=== PATIENT | female | born 1990 | race Caucasian/White ===

== ENCOUNTER 2016-07-02 11:51 | Outpatient (CLI) | payer OTHER ==
[~2016-07-02 11:51] MED LIST: ONDA4TAB46 PO; PRENTAB26 PO
--- NOTE | 2016-07-02 12:43 | History and Physical ---
History & Physical L&D H&P Patient is 26yo @ 20 0/7 presents by squad from PCP office, where she was seen after falling down 6 steps at home this morning. At 8:30a, she slipped on icy steps at home, fell on her low back. Pain is mostly in her low back, midline, at site of impact. Does not know if she hit her head or if she lost consciousness - she is having trouble remembering. 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 She was evaluated by the doctor at work, and per that office, lost consciousness during evaluation and therefore ambulance was called. Patient does not remember this. Per reports from EMS, the PCP office noted vaginal bleeding at some point, but examination of patient's clothing reveals no blood. She notes some low pelvic cramps, but no abdominal pain. She has not noted much movement yet during the so far. history is SVDx2, term. One of these pregnancies had ctx with betamethasone administration, but delivered at term. SAB x2. PMH: asthma, biliary dyskinesia, ADHD. H/o HTN (no meds) PSH: D&E, gallbladder, laparoscopy endometriosis, ovarian cystectomy Allergies: zoloft (mood swings) Meds: PNV Soc: denies E/T/D Fam: noncontributory ROS: neg except as above VSS Gen: AAOx3, is confused about the events of the fall Head: Small spot of blood on pillow, no obvious area of bleeding on back of head. Abd: soft, NTTP. gravid. No s/s abruption. Ext: no edema Spec exam: no vaginal bleeding, cervix visually closed. Blood type: O+ heart rate: 140's. Limited bedside ultrasound: breech position, fundal placenta. Adequate- appearing fluid. + movement. +cardiac activity. No obvious abnormalities. A/P 1. 26yo @ 20 0/7 2. Fall on low back - No s/s abruption: no vaginal bleeding, belly is soft and benign. Ultrasound is benign. + movement on US. FHR 140s. The most likely time for placental abruption to occur is in the 4 hours after trauma, and it has been 4 hours at this time. 3. Loss of consciousness, unknown if patient had head trauma Will transfer care back to emergency department for further workup and evaluation of fall and loss of consciousness. If patient needs imaging (i.e. head CT) this is OK in the setting of . I discussed this with patient and her mother and relayed this info to charge nurse in ER. If there are any questions, please call.
[2016-07-02] MEDS ORDERED: ACET-1311 PO (13:17)
[2016-07-02] MEDS ORDERED: OXYC1TAB3 PO (16:41)
== END 2016-07-02 12:25 | disposition other institution (70) ==
LOC: C.OPB 11:51 → C.LD 11:51 → C.OPB 12:25
PROVIDERS: ATTEND Obstetrics & Gynecology
DX: O99.89 Other specified diseases and conditions complicating pregnancy, childbirth and the puerperium (principal); R55 Syncope and collapse; W00.1XXA Fall from stairs and steps due to ice and snow, initial encounter; Z3A.20 20 weeks gestation of pregnancy; J45.909 Unspecified asthma, uncomplicated; F90.9 Attention-deficit hyperactivity disorder, unspecified type

== ENCOUNTER 2016-07-02 12:37 | Emergency (ER) | payer OTHER ==
[~2016-07-02] VITALS: Ht 162.6 cm; Wt 82.0 kg
[2016-07-02 12:38] VITALS: TEMP 36.8; Ht 162.6 cm; Wt 82.0 kg
[2016-07-02] MEDS ORDERED: ACET-1311 PO (13:17)
[2016-07-02] MEDS ORDERED: HYDROCODONE/ACETAMOPHEN 5/325MG TAB PO STA (13:17)
--- NOTE | 2016-07-02 13:53 | DIAGNOSTIC IMAGING REPORT ---
CT SCAN OF THE BRAIN WITHOUT IV CONTRAST CLINICAL HISTORY: Syncope. COMPARISON STUDY: CT of the brain dated 05/19/2015. TECHNIQUE: Unenhanced axial CT scan of the brain is performed from the vertex to the skull base. Automated dose control exposure was utilized. CT DOSE: 537.48 mGy.cm FINDINGS: Brain parenchyma: The brain parenchyma is normal in appearance. There is no hemorrhage, mass effect, or evidence of acute territorial ischemia by CT criteria. Zapata-white matter is preserved. No extra-axial fluid collection is seen. Ventricles, sulci, cisterns: Normal in configuration. Intracranial vasculature: The visualized intracranial vasculature at the skull base is normal in appearance. Calvarium: There is no depressed calvarial fracture. Sinuses and mastoids: The visualized paranasal sinuses are clear. The mastoid air cells are well pneumatized. Orbits: The bony orbits are grossly intact. IMPRESSION: No acute intracranial abnormality. Electronically signed by: Brian Meyer M.D. 07/02/2016 1:51 PM Dictated Date/Time: 07/02/2016 1:50 PM
[2016-07-02] MEDS ORDERED: ONDANSETRON INJ 2 MG/ML 2 ML VIAL IV STA (14:03)
[2016-07-02 14:26] LABS: BASO % 0.2 %; BASO ABS # 0.02 K/uL (0-0.2); COMPLETE YES; EOS % 0.7 %; HEMATOCRIT 32.9 % (37-47); IG% 2.3 %; LYMPH % 17.6 %; LYMPH ABS # 2.02 K/uL (1.2-3.4); MEAN CELL VOLUME 87.3 fL (80-100); MEAN CORPUSCULAR HEMOGLOBIN 30.5 pg (25-34); MEAN PLATELET VOLUME 10.9 fL (7.4-10.4); MONO % 8.9 %; NEUT % 70.3 %; PLATELET COUNT 227 K/uL (130-400); RED BLOOD COUNT 3.77 M/uL (4.2-5.4)
[2016-07-02 14:47] LABS: BLOOD UREA NITROGEN 7 mg/dl (7-18); CALCIUM 8.8 mg/dl (8.5-10.1); CARBON DIOXIDE 24 mmol/L (21-32); CHLORIDE 104 mmol/L (98-107); CREATININE 0.52 mg/dl (0.60-1.20); GLUCOSE 80 mg/dl (70-99); POTASSIUM 3.7 mmol/L (3.5-5.1); SODIUM 138 mmol/L (136-145)
[2016-07-02] MEDS ORDERED: MoRPHine SULFATE 10 MG/ML CARP/VIAL IV STA (15:07)
--- NOTE | 2016-07-02 16:21 | DIAGNOSTIC IMAGING REPORT ---
LUMBAR SPINE MRI HISTORY: fall/ severe low back pain/ TECHNIQUE: Multiplanar multisequence MRI of the lumbar spine was performed without the use of contrast. COMPARISON: None. FINDINGS: For the purpose of the report the L5-S1 disc space will be located on axial image 27 of 30. Alignment and curvature are intact. No fracture or subluxation. L5 is measured to be a transitional vertebra with partial sacralization and pseudarthrosis on the left. There is a slightly hypoplastic L5-S1 disc space. A T1 and T2 hyperintense lesion at L1 partially suppresses. This may represent an atypical hemangioma. The conus terminates at L1. No disc herniations. No significant central canal or neural foraminal narrowing. Paraspinal soft tissues are unremarkable. Partial visualization of the intrauterine gestation. IMPRESSION: 1. No fracture or subluxation within the lumbar spine. 2. No disc herniations. No significant central canal or neural foraminal narrowing. 3. Intrauterine gestation is partially visualized. Electronically signed by: Nicolas Nair M.D. 07/02/2016 4:19 PM Dictated Date/Time: 07/02/2016 4:04 PM
[2016-07-02] MEDS ORDERED: MoRPHine SULFATE 4 MG/ML 1 ML CARP\\VIAL IV STA (16:29)
[2016-07-02] MEDS ORDERED: ACETAMINOPHEN 325 MG TAB PO STA (16:34)
[2016-07-02] MEDS ORDERED: OXYC1TAB3 PO (16:41)
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
--- NOTE | 2016-07-02 19:05 | DIAGNOSTIC IMAGING REPORT ---
LIMITED (US) CLINICAL HISTORY: Fall. Hypotension. Back pain. Abdominal pain. COMPARISON STUDY: ultrasound June 18, 2016. TECHNIQUE: Abdominal sonography of the fetus was performed. FINDINGS: A single viable intrauterine gestation is noted. heart rate is normal at 134 bpm. Please note that a dedicated anatomical survey was not performed. Femur length measured 3.3 cm which corresponds to an estimated gestational age of 20 weeks and 3 days. Presentation was transverse. Cervix was closed, measuring approximately 4 cm in length. Several placental lakes were noted. There is a prominent mixed echogenicity region within the placenta near the cord insertion. IMPRESSION: 1. Single viable intrauterine gestation with normal heart rate of 134 bpm. 2. Prominent mixed echogenicity focus within the placenta near the cord insertion. This likely reflects normal placenta or placental lakes. This is likely within normal limits although if persistent pain, short-term follow-up ultrasound is recommended. 3. Closed cervix, measuring approximate 4 cm in length. The cervix is suboptimally assessed on this exam. Electronically signed by: Chase Teresa M.D. 07/02/2016 7:04 PM Dictated Date/Time: 07/02/2016 6:55 PM
[2016-07-02 19:41] VITALS: BP 104/62; PULSE 84; O2SAT 100
--- NOTE | 2016-07-02 21:36 | EMERGENCY ROOM VISIT NOTE ---
ED Visit Note Ms. Nicole lancaster was transferred to ct from Sheyla Rabago PA-C at the end of her shift pending hydration. In summary patient was brought to the hospital today after she slipped and fell down stairs. During the fall she injured her back. She is currently 20 weeks . She was initially seen at her PCPs office and then was transferred to the hospital by ambulance because of her pain and there was reported vaginal bleeding. She was seen at the [facility] initially by Dr. Mcdowell. A vaginal examination and a ultrasound was performed and her and was cleared for further evaluation and care of her other complaints. While in the emergency department she had multiple labs, and head CT and a back MRI. All these tests were negative. She was hydrated with medication and received IV narcotics for pain control. Just prior to discharge patient was noted to have a systolic blood pressure in the 90s and it was felt that she should be hydrated with additional fluids. She did have a return of normal blood pressure after approximately 500 mL of normal saline but when her blood pressure was rechecked again just prior to discharge her systolic blood pressure was 85. A second bolus of 500 mL were given to the patient. On my initial evaluation of the patient she was complaining of lightheadedness and dizziness with movement and position changes. After her second 500 mL bolus her blood pressure returned to normal but she was still feeling lightheaded. Her abdomen was soft and nontender. I did contact Dr. Mcdowell and she recommended a ultrasound to check the baby's heart rate and make sure there was no signs of placental abruption. Dr. Mcdowell felt if her ultrasound was normal that she could be discharged home with office follow-up. Additionally she felt if there was anything abnormal if I am any additional questions I could recontact her. Ultrasound: Was reviewed by myself and read by the radiologist showing a single viable intrauterine with a heart rate of 134 bpm, prominent mixed echogenic focus within the placenta near the insertion of the cord likely reflecting a normal placenta and placental lakes and a closed cervix. Orthostatic vital signs were performed and patient was not orthostatic. Patient was reassessed multiple times during her stay in the emergency department. Patient was discharged home in stable condition accompanied by her . She reported much less dizziness on discharge and no worsening pain from her injuries. Patient was encouraged to continue the discharge plan put in place by Ms. Rabago ; I did note in this discharge plan she was prescribed OxyIR for pain and I encouraged her to avoid this based on her lightheadedness and if possible just use acetaminophen every 6 hours and ice on areas of pain.
== END 2016-07-02 20:08 | disposition home or self-care (01) ==
LOC: EDBD 12:37 → C.EDC 12:39
DX: O26.90 Pregnancy related conditions, unspecified, unspecified trimester (principal); S39.012A Strain of muscle, fascia and tendon of lower back, initial encounter; W10.8XXA Fall (on) (from) other stairs and steps, initial encounter; Y92.89 Other specified places as the place of occurrence of the external cause; Y99.0 Civilian activity done for income or pay; R55 Syncope and collapse; R11.0 Nausea; J45.909 Unspecified asthma, uncomplicated; F90.9 Attention-deficit hyperactivity disorder, unspecified type; E28.2 Polycystic ovarian syndrome; N80.9 Endometriosis, unspecified; Z87.820 Personal history of traumatic brain injury; Z91.81 History of falling; Z90.49 Acquired absence of other specified parts of digestive tract; Z88.8 Allergy status to other drugs, medicaments and biological substances

== ENCOUNTER 2016-08-15 17:41 | Emergency (ER) | payer OTHER ==
[~2016-08-15] VITALS: Ht 162.6 cm; Wt 89.3 kg
[~2016-08-15 17:41] MED LIST changes: +ACET-1311 PO
[2016-08-15 17:44] VITALS: TEMP 37.3; Ht 162.6 cm; Wt 89.3 kg
[2016-08-15] MEDS ORDERED: ONDANSETRON INJ 2 MG/ML 2 ML VIAL IV STA (17:50)
[2016-08-15] MEDS ORDERED: MoRPHine SULFATE 4 MG/ML 1 ML CARP\\VIAL IV STA (17:50)
[2016-08-15] MEDS ORDERED: SODIUM CHLORIDE 0.9% 1000ML 1,000 ML IV STA (17:50)
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
[2016-08-15 18:12] LABS: BASO % 0.2 %; BASO ABS # 0.02 K/uL (0-0.2); COMPLETE YES; EOS % 0.6 %; HEMATOCRIT 31.8 % (37-47); IG% 1.9 %; LYMPH % 18.4 %; MEAN CELL VOLUME 88.8 fL (80-100); MEAN CORPUSCULAR HGB CONC 34.9 g/dl (32-36); MONO % 6.3 %; NEUT % 72.6 %; PLATELET COUNT 211 K/uL (130-400); RED BLOOD COUNT 3.58 M/uL (4.2-5.4); WHITE BLOOD COUNT 11.95 K/uL (4.8-10.8)
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
[2016-08-15 18:24] LABS: ALT/SGPT 17 U/L (12-78); AST/SGOT 10 U/L (15-37); BLOOD UREA NITROGEN 8 mg/dl (7-18); BUN/CREATININE RATIO 11.6 (10-20); CALCIUM 8.9 mg/dl (8.5-10.1); CARBON DIOXIDE 24 mmol/L (21-32); CHLORIDE 106 mmol/L (98-107); GLUCOSE 105 mg/dl (70-99); POTASSIUM 3.4 mmol/L (3.5-5.1); SODIUM 139 mmol/L (136-145)
[2016-08-15 18:27] LABS: ALKALINE PHOSPHATASE 91 U/L (45-117)
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
[2016-08-15 20:06] LABS: URINE APPEARANCE CLOUDY (CLEAR); URINE BILIRUBIN NEG (NEG); URINE COLOR YELLOW; URINE EPITHELIAL CELL AUTO >30 /lpf (0-5); URINE NITRITE NEG (NEG); URINE SPECIFIC GRAVITY 1.013 (1.000-1.030); UROBILINOGEN NEG (NEG); ZZUR CULT IF INDIC CLEAN CATCH NO
[2016-08-15 20:13] LABS: MANUAL MICROSCOPIC REQUIRED? NO; REVIEW REQ? NO
[2016-08-15 20:16] LABS: BENZODIAZEPINE, URINE NEG (NEG); COCAINE,URINE NEG (NEG); PHENCYCLIDINE, URINE NEG (NEG)
[2016-08-15 20:30] VITALS: BP 105/70; PULSE 87; O2SAT 100
[2016-08-19 18:29] LABS: COD UR NEGATIVE NG/ML (CUTOFF=50); HYDROCOD UR NEGATIVE NG/ML (CUTOFF=50); HYDROMOR UR NEGATIVE NG/ML (CUTOFF=50); MORPHINE UR 4450 NG/ML (CUTOFF=50); NORHYDROCODONE CONF UR NEGATIVE NG/ML (CUTOFF=50); OXYMORPH UR NEGATIVE NG/ML (CUTOFF=50)
== END 2016-08-15 20:33 | disposition home or self-care (01) ==
LOC: EDBD 17:41 → C.ED 17:42
DX: O9A.213 Injury, poisoning and certain other consequences of external causes complicating pregnancy, third trimester (principal); Z3A.30 30 weeks gestation of pregnancy; R10.32 Left lower quadrant pain; O99.513 Diseases of the respiratory system complicating pregnancy, third trimester; J45.909 Unspecified asthma, uncomplicated; V43.52XA Car driver injured in collision with other type car in traffic accident, initial encounter; Y99.8 Other external cause status

== ENCOUNTER 2016-08-15 20:40 | Outpatient (CLI) | payer OTHER ==
[~2016-08-15] VITALS: Ht 162.6 cm; Wt 85.0 kg
[2016-08-15 23:01] VITALS: Ht 162.6 cm; Wt 85.0 kg
== END 2016-08-15 22:03 | disposition home or self-care (01) ==
LOC: C.OPB 20:40 → C.LD 20:40 → C.OPB 22:03
PROVIDERS: ATTEND Obstetrics & Gynecology
DX: Z34.82 Encounter for supervision of other normal pregnancy, second trimester (principal); Z3A.26 26 weeks gestation of pregnancy; V43.52XA Car driver injured in collision with other type car in traffic accident, initial encounter

== ENCOUNTER → 2016-08-26 | Outpatient (CLI) | payer OTHER ==
[~2016-08-26] MED LIST changes: -ACET-1311 PO; -ONDA4TAB46 PO
[2016-08-26 10:51] LABS: HEMATOCRIT 34.2 % (37-47)
[2016-08-26 11:59] LABS: URINE APPEARANCE TURBID (CLEAR); URINE BILIRUBIN NEG (NEG); URINE COLOR DK YELLOW; URINE EPITHELIAL CELL AUTO >30 /lpf (0-5); URINE NITRITE NEG (NEG); URINE SPECIFIC GRAVITY 1.024 (1.000-1.030); UROBILINOGEN NEG (NEG)
[2016-08-26 12:07] LABS: MANUAL MICROSCOPIC REQUIRED? NO; REVIEW REQ? YES
[2016-08-26 12:21] LABS: GTGD 50 Grams
== END | disposition home or self-care (01) ==
LOC: C.LAB1850 09:20
PROVIDERS: ATTEND Obstetrics & Gynecology
DX: Z34.83 Encounter for supervision of other normal pregnancy, third trimester (principal)

== ENCOUNTER 2016-09-02 11:06 | Observation (INO) | payer OTHER ==
[~2016-09-02] VITALS: Ht 162.6 cm; Wt 90.0 kg
[2016-09-02] MEDS ORDERED: LACTATED RINGER'S 1000ML 500 ML IV ONE (11:45)
[2016-09-02] MEDS ORDERED: BETAMETH SOD PHOS/ACETATE IA 6 MG/ML IM ONE (12:15)
[2016-09-02 12:17] LABS: BASO % 0.2 %; BASO ABS # 0.02 K/uL (0-0.2); COMPLETE YES; EOS % 0.6 %; HEMATOCRIT 30.8 % (37-47); IG% 2.4 %; LYMPH ABS # 1.78 K/uL (1.2-3.4); MEAN CELL VOLUME 86.3 fL (80-100); MEAN CORPUSCULAR HEMOGLOBIN 29.7 pg (25-34); MEAN CORPUSCULAR HGB CONC 34.4 g/dl (32-36); MEAN PLATELET VOLUME 10.5 fL (7.4-10.4); MONO % 8.7 %; NEUT % 74.1 %; PLATELET COUNT 188 K/uL (130-400); RED BLOOD COUNT 3.57 M/uL (4.2-5.4); WHITE BLOOD COUNT 12.71 K/uL (4.8-10.8)
[2016-09-02] MEDS: LACTATED RINGER'S 1000ML 1,000 ML IV SCH ×2 (13:08→16:39)
--- NOTE | 2016-09-02 15:12 | DIAGNOSTIC IMAGING REPORT ---
ULTRASOUND LIMITED:\E\ CLINICAL HISTORY: Vaginal bleeding. Reportedly 28 weeks . COMPARISON STUDY: Limited ultrasound dated 07/02/2016. FINDINGS: Real-time, grayscale, and color Doppler sonography of the fetus and gravid uterus is performed. There is a single live intrauterine gestation with an estimated heart rate of 153 bpm. Presentation is breech. The femoral length measures 5.26 cm, corresponding to an estimated age of 28 weeks 0 days. The cervix measures 4.6 cm in length and is closed. The placenta is fundal. The amount of fluid index measures 16.8 cm. IMPRESSION: 1. There is a single live intrauterine gestation with an estimated age of 28 weeks 0 days by femoral length measurement. 2. No acute abnormality is seen. 3. Note that this does not constitute a dedicated anatomic scan. Dictated: 09/02/2016 3:04 PM Transcribed: 09/02/2016 3:11 PM Sai Electronically signed by: Brian Meyer M.D. 09/02/2016 3:16 PM Dictated Date/Time: 09/02/2016 3:04 PM
[2016-09-02 16:01] VITALS: Ht 162.6 cm; Wt 90.0 kg
[2016-09-02] MEDS ORDERED: IV FLUIDS COMPLETED PRN (19:15)
[2016-09-03] MEDS: LACTATED RINGER'S 1000ML 1,000 ML IV SCH (00:32)
[2016-09-03] MEDS ORDERED: ACETAMINOPHEN 325 MG TAB PO ONE (09:26)
[2016-09-03 09:53] LABS: PARTIAL THROMBOPLASTIN RATIO 0.9; PROTHROMBIN TIME (PATIENT) 10.3 SECONDS (9.0-12.0)
[2016-09-03 11:35] LABS: MEAN CORPUSCULAR HEMOGLOBIN 30.1 pg (25-34); MEAN CORPUSCULAR HGB CONC 34.7 g/dl (32-36); MEAN PLATELET VOLUME 11.1 fL (7.4-10.4); PLATELET COUNT 205 K/uL (130-400); RED BLOOD COUNT 3.45 M/uL (4.2-5.4); WHITE BLOOD COUNT 15.92 K/uL (4.8-10.8)
[2016-09-03] MEDS ORDERED: BETAMETH SOD PHOS/ACETATE IA 6 MG/ML IM SCH (12:45)
[2016-09-03] MEDS ORDERED: ACETAMINOPHEN 325 MG TAB PO PRN (15:00)
[2016-09-03 16:50] LABS: HEMATOCRIT 29.3 % (37-47); MEAN CELL VOLUME 88.8 fL (80-100); MEAN CORPUSCULAR HGB CONC 33.8 g/dl (32-36); MEAN PLATELET VOLUME 10.6 fL (7.4-10.4); PLATELET COUNT 179 K/uL (130-400); WHITE BLOOD COUNT 13.41 K/uL (4.8-10.8)
[2016-09-03 17:08] LABS: URINE APPEARANCE CLOUDY (CLEAR); URINE BILIRUBIN NEG (NEG); URINE COLOR YELLOW; URINE EPITHELIAL CELL AUTO >30 /lpf (0-5); URINE NITRITE NEG (NEG); URINE SPECIFIC GRAVITY 1.005 (1.000-1.030); UROBILINOGEN NEG (NEG)
[2016-09-03 17:10] LABS: MANUAL MICROSCOPIC REQUIRED? NO; REVIEW REQ? YES
[2016-09-03 17:20] LABS: PARTIAL THROMBOPLASTIN RATIO 0.9; PROTHROMBIN TIME (PATIENT) 10.3 SECONDS (9.0-12.0)
[2016-09-03] MEDS: D5NSS + 20MEQ KCL 1,000 ML IV SCH (22:04)
[2016-09-04] MEDS: D5NSS + 20MEQ KCL 1,000 ML IV SCH (05:45)
[2016-09-04 06:42] LABS: HEMATOCRIT 27.9 % (37-47); MEAN CELL VOLUME 87.2 fL (80-100); MEAN CORPUSCULAR HEMOGLOBIN 29.1 pg (25-34); MEAN CORPUSCULAR HGB CONC 33.3 g/dl (32-36); MEAN PLATELET VOLUME 10.2 fL (7.4-10.4); PLATELET COUNT 185 K/uL (130-400); WHITE BLOOD COUNT 13.79 K/uL (4.8-10.8)
[2016-09-04 07:30] LABS: PARTIAL THROMBOPLASTIN RATIO 0.9; PROTHROMBIN TIME (PATIENT) 10.5 SECONDS (9.0-12.0)
[2016-09-04] MEDS ORDERED: NURSING VERBAL MED ORDER ONE ×2 (09:40→10:00)
[2016-09-04] MEDS ORDERED: ONDANSETRON INJ 2 MG/ML 2 ML VIAL IV STA (09:53)
[2016-09-04] MEDS ORDERED: ONDANSETRON INJ 2 MG/ML 2 ML VIAL ONE (10:04)
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
== END 2016-09-04 10:20 | disposition short-term general hospital (02) ==
LOC: C.OBG 11:06 → C.OPB 11:06 → C.OBG 18:16 → C.OPB 18:16 → C.LD 09-03 09:45
PROVIDERS: ADMIT Obstetrics & Gynecology; ATTEND Obstetrics & Gynecology
DX: O46.93 Antepartum hemorrhage, unspecified, third trimester (principal); O26.893 Other specified pregnancy related conditions, third trimester; M54.5 Low back pain; W00.1XXA Fall from stairs and steps due to ice and snow, initial encounter; O34.43 Maternal care for other abnormalities of cervix, third trimester; O99.283 Endocrine, nutritional and metabolic diseases complicating pregnancy, third trimester; E28.2 Polycystic ovarian syndrome; Z3A.28 28 weeks gestation of pregnancy

== ENCOUNTER → 2016-10-21 | Outpatient (CLI) | payer OTHER ==
[~2016-10-21] MED LIST changes: +AMPH20TA2 PO; +BCPILLS PO
[2016-10-21 12:13] LABS: HEMATOCRIT 35.5 % (37-47); MEAN CELL VOLUME 87.2 fL (80-100); MEAN CORPUSCULAR HEMOGLOBIN 28.7 pg (25-34); MEAN PLATELET VOLUME 10.8 fL (7.4-10.4); PLATELET COUNT 287 K/uL (130-400); RED BLOOD COUNT 4.07 M/uL (4.2-5.4)
== END | disposition home or self-care (01) ==
LOC: C.LAB1850 10:32
PROVIDERS: ATTEND Nurse Practitioner
DX: Z01.812 Encounter for preprocedural laboratory examination (principal); N80.9 Endometriosis, unspecified; N92.0 Excessive and frequent menstruation with regular cycle; N94.6 Dysmenorrhea, unspecified

== ENCOUNTER → 2016-12-22 | Outpatient (CLI) | payer OTHER ==
[~2016-12-22] MED LIST changes: -AMPH20TA2 PO; -BCPILLS PO
[2016-12-22 11:57] LABS: BASO % 0.6 %; BASO ABS # 0.03 K/uL (0-0.2); EOS % 1.1 %; HEMATOCRIT 33.6 % (37-47); IG% 0.4 %; LYMPH % 39.3 %; LYMPH ABS # 2.06 K/uL (1.2-3.4); MEAN CELL VOLUME 85.9 fL (80-100); MEAN CORPUSCULAR HEMOGLOBIN 28.4 pg (25-34); MEAN PLATELET VOLUME 10.2 fL (7.4-10.4); MONO % 9.9 %; NEUT % 48.7 %; PLATELET COUNT 264 K/uL (130-400); RED BLOOD COUNT 3.91 M/uL (4.2-5.4); WHITE BLOOD COUNT 5.24 K/uL (4.8-10.8)
[2016-12-22 12:00] LABS: COMPLETE YES
== END | disposition home or self-care (01) ==
LOC: C.LAB 11:37
PROVIDERS: ATTEND Nurse Practitioner Family
DX: N92.0 Excessive and frequent menstruation with regular cycle (principal)

== ENCOUNTER → 2017-05-10 | Outpatient (CLI) | payer OTHER ==
[~2017-05-10] MED LIST changes: +AMPH20TA2 PO; +BCPILLS PO
[2017-05-10 19:44] LABS: BASO % 0.3 %; BASO ABS # 0.03 K/uL (0-0.2); EOS % 0.9 %; EOS ABS # 0.09 K/uL (0-0.5); HEMATOCRIT 34.7 % (37-47); HEMOGLOBIN 11.6 g/dL (12.0-16.0); IG# 0.04 K/uL (0.00-0.02); LYMPH ABS # 2.71 K/uL (1.2-3.4); MEAN CORPUSCULAR HEMOGLOBIN 27.8 pg (25-34); MEAN CORPUSCULAR HGB CONC 33.4 g/dl (32-36); MEAN PLATELET VOLUME 10.9 fL (7.4-10.4); MONO % 8.9 %; MONO ABS # 0.89 K/uL (0.11-0.59); NEUT % 62.5 %; NEUT ABS # 6.28 K/uL (1.4-6.5); PLATELET COUNT 301 K/uL (130-400); RED CELL DISTRIBUTION WIDTH CV 13.9 % (11.5-14.5); RED CELL DISTRIBUTION WIDTH SD 42.1 fL (36.4-46.3); WHITE BLOOD COUNT 10.04 K/uL (4.8-10.8)
== END | disposition home or self-care (01) ==
LOC: C.LAB 19:34
PROVIDERS: ATTEND Family Medicine
DX: N93.9 Abnormal uterine and vaginal bleeding, unspecified (principal)

== ENCOUNTER 2017-05-19 18:44 | Observation (INO) | payer OTHER ==
[~2017-05-19] VITALS: Ht 162.6 cm; Wt 84.1 kg
[~2017-05-19 18:44] MED LIST changes: -AMPH20TA2 PO; -BCPILLS PO
[2017-05-19] MEDS ORDERED: LIDOCAINE 4% W/AFRIN NASAL SOLN 4ML EXT STA (20:07)
[2017-05-19] MEDS ORDERED: AMPH20TA2 PO (20:12)
[2017-05-19] MEDS ORDERED: BCPILLS PO (20:12)
[2017-05-19] MEDS ORDERED: POLYETHYLENE (MIRALAX) 17 GM PACK PO PRN (20:15)
[2017-05-19] MEDS ORDERED: OXYMETAZOLINE HCL 0.05% NA SPR 15 ML BTL PRN (20:15)
[2017-05-19] MEDS ORDERED: MAGNESIUM HYDROXIDE SUSP 30 ML UDC PO PRN (20:15)
[2017-05-19] MEDS ORDERED: ALUMINUM/MAGNESIUM/SIMETH (MAALOX MAX) 30 ML UDC PO PRN (20:15)
[2017-05-19] MEDS ORDERED: IV FLUIDS COMPLETED PRN (20:30)
[2017-05-19] MEDS ORDERED: FENTANYL CITRATE INJ 50 MCG/1 ML 2 ML VIAL IV STA (20:42)
[2017-05-19 21:12] LABS: BASO % 0.3 %; BASO ABS # 0.04 K/uL (0-0.2); COMPLETE YES; EOS % 0.6 %; HEMATOCRIT 28.5 % (37-47); IG% 0.3 %; LYMPH % 33.4 %; LYMPH ABS # 3.87 K/uL (1.2-3.4); MEAN CELL VOLUME 82.8 fL (80-100); MEAN CORPUSCULAR HGB CONC 32.6 g/dl (32-36); MEAN PLATELET VOLUME 10.5 fL (7.4-10.4); MONO % 7.4 %; PLATELET COUNT 355 K/uL (130-400); RED BLOOD COUNT 3.44 M/uL (4.2-5.4)
[2017-05-19] MEDS ORDERED: OPTIRAY 320 IV PRN (21:30)
[2017-05-19 21:31] LABS: ALT/SGPT 20 U/L (12-78); BLOOD UREA NITROGEN 14 mg/dl (7-18); BUN/CREATININE RATIO 17.4 (10-20); CALCIUM 9.2 mg/dl (8.5-10.1); CARBON DIOXIDE 25 mmol/L (21-32); CHLORIDE 103 mmol/L (98-107); CREATININE 0.82 mg/dl (0.60-1.20); GLUCOSE 102 mg/dl (70-99); POTASSIUM 3.2 mmol/L (3.5-5.1); SODIUM 137 mmol/L (136-145)
[2017-05-19 21:34] LABS: ALKALINE PHOSPHATASE 64 U/L (45-117); AST/SGOT 13 U/L (15-37)
[2017-05-19 22:05] VITALS: BP 106/72; PULSE 89; TEMP 36.6; Ht 162.6 cm; Wt 84.1 kg
--- NOTE | 2017-05-19 22:30 | DIAGNOSTIC IMAGING REPORT ---
SINUSES-MAXILLOFACIAL WITH CLINICAL HISTORY: 26 years-old Female presenting with recurrent severe nose bleeds x 9 days. TECHNIQUE: Multidetector CT of the sinuses was performed without the use of intravenous contrast. IV contrast: None. A dose lowering technique was used consistent with the principles of ALARA (as low as reasonably achievable). COMPARISON: CT face from 06/17/2010. CT DOSE (mGy.cm): The estimated cumulative dose is 550.74 mGy.cm. FINDINGS: Dough Cutter topogram: Unremarkable. Soft tissues of the face are normal in appearance. Paranasal sinuses and mastoid air cells clear. No abnormal sclerosis of the maxillary sinus jeffrey to suggest chronic sinusitis. Minimal rightward deviation of the bony nasal septum. Ostiomeatal units patent bilaterally. Nasofrontal ethmoidal recesses patent bilaterally. No dehiscence of the optic canals. No variant anatomy evident. IMPRESSION: No evidence of acute or chronic sinusitis at this time. No variant anatomy evident. Electronically signed by: Mj Prince M.D. 05/19/2017 10:28 PM Dictated Date/Time: 05/19/2017 10:24 PM
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
[2017-05-19 22:36] VITALS: BP 106/72; PULSE 89; TEMP 36.6; O2SAT 98
[2017-05-19 22:56] LABS: INR 1.1 (0.9-1.1); PROTHROMBIN TIME (PATIENT) 11.3 SECONDS (9.0-12.0)
[2017-05-19 23:51] VITALS: BP 94/61; PULSE 79; TEMP 36.5; O2SAT 99
[2017-05-20] VITALS (9 sets, daily range): BP systolic 93–116; BP diastolic 59–80; PULSE 82–100; TEMP 36.3–36.7; O2SAT 99–100
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
[2017-05-20 05:35] LABS: URINE APPEARANCE CLEAR (CLEAR); URINE BILIRUBIN NEG (NEG); URINE COLOR YELLOW; URINE EPITHELIAL CELL AUTO >30 /lpf (0-5); URINE NITRITE POS (NEG); UROBILINOGEN NEG (NEG)
[2017-05-20 05:49] LABS: MANUAL MICROSCOPIC REQUIRED? NO; REVIEW REQ? YES; URINE SPECIFIC GRAVITY > 1.030 (1.000-1.030)
[2017-05-20] MEDS: AMPHETAMINE ASP/SULF/DEXTRAMPH 20 MG TAB PO SCH ×2 (06:29→18:00)
[2017-05-20] MEDS ORDERED: POTASSIUM CHLORIDE 20 MEQ TABCR PO ONE (07:00)
[2017-05-20 07:28] LABS: HEMATOCRIT 25.8 % (37-47); MEAN CELL VOLUME 83.8 fL (80-100); MEAN CORPUSCULAR HEMOGLOBIN 27.3 pg (25-34); MEAN CORPUSCULAR HGB CONC 32.6 g/dl (32-36); MEAN PLATELET VOLUME 9.9 fL (7.4-10.4); PLATELET COUNT 277 K/uL (130-400); RED BLOOD COUNT 3.08 M/uL (4.2-5.4); WHITE BLOOD COUNT 7.15 K/uL (4.8-10.8)
[2017-05-20 07:56] LABS: BUN/CREATININE RATIO 14.9 (10-20); CALCIUM 8.5 mg/dl (8.5-10.1); CREATININE 0.8 mg/dl (0.60-1.20); POTASSIUM 3.4 mmol/L (3.5-5.1)
[2017-05-20] MEDS ORDERED: NURSING VERBAL MED ORDER ONE (11:00)
[2017-05-20] MEDS ORDERED: SODIUM CHLORIDE 0.9% 1000ML 1,000 ML IV ONE (11:00)
[2017-05-20] MEDS: ACETAMINOPHEN 325 MG TAB PO PRN ×2 (11:08→23:31)
[2017-05-20] MEDS ORDERED: KETOROLAC TROMETHAMINE 15 MG/ML VIAL IV PRN (13:30)
[2017-05-20 14:01] LABS: HEMATOCRIT 24.7 % (37-47)
--- NOTE | 2017-05-20 14:06 | CONSULTATION REPORT ---
DATE OF CONSULTATION: 05/20/2017 DIAGNOSIS: Epistaxis. HISTORY OF PRESENT ILLNESS: A 26-year-old female who presented to the Emergency Room with a 2-week history of recurrent epistaxis, gradually becoming worse over the last 9 days, now she is lightheaded and has dyspnea on ambulation. She had an H&H checked at 10:00 a.m. yesterday, which was 11.1 and then at 4:30 p.m. it was down to 9.1 grams and this morning it is down to 8.4 grams. Because of the persistent bleeding, the patient was observed overnight and will be taken to the OR for endoscopic cautery. PAST MEDICAL HISTORY: Positive for ADHD, endometriosis and polycystic ovary syndrome. PAST SURGICAL HISTORY: Previous surgeries include a D&C, laparoscopy and cholecystectomy. FAMILY HISTORY: Negative. SOCIAL HISTORY: Nonsmoker. MEDICATIONS: Adderall. REVIEW OF SYSTEMS: Otherwise, negative. PHYSICAL EXAMINATION: GENERAL: WNWD female in no acute distress. VITAL SIGNS: Temp 36.6, BP 128/87, pulse 99, respirations 18. HEAD: Normocephalic. EYES: Normal. EARS: Tympanic membranes intact. NOSE: Nasal passages show some dried blood, but no active bleeding at this time. THROAT: Oropharynx normal. NECK: Supple. HEART: RRR. LUNGS: Clear. IMPRESSION: Persistent epistaxis, severe and anemia. PLAN: For endoscopic cautery to localize the bleeding site.
[2017-05-20] MEDS ORDERED: MEPERIDINE HCL 25 MG/ML CARP IV PRN (15:30)
[2017-05-20] MEDS ORDERED: LABETALOL HCL IV 5 MG/ML 20ML IV PRN (15:30)
[2017-05-20] MEDS ORDERED: ATROPINE SULFATE 0.1 MG/ML 5ML SYR IV PRN (15:30)
[2017-05-20] MEDS ORDERED: ONDANSETRON INJ 2 MG/ML 2 ML VIAL IV PRN (15:30)
[2017-05-20] MEDS ORDERED: EpHEDrine SULFATE INJ 50 MG/ML AMP IV PRN (15:30)
[2017-05-20] MEDS ORDERED: GELATIN SPONGE SZ 100 ONE (16:08)
[2017-05-20] MEDS ORDERED: MIDAZOLAM HCL 1 MG/ML 2ML VIAL ONE (16:38)
[2017-05-20] MEDS ORDERED: FENTANYL CITRATE INJ 50 MCG/1 ML 2 ML VIAL ONE (16:38)
[2017-05-20] MEDS ORDERED: EpINEphrine INJ 1MG/ML AMP 1 MG/ML AMP ONE (17:07)
[2017-05-20] MEDS ORDERED: LIDOCAINE 4% INH SOLN 4 ML BTL ONE (17:08)
[2017-05-20] MEDS ORDERED: PROPOFOL IV EMULSION 10 MG/ML 20 ML VIAL IV ONE (17:11)
[2017-05-20] MEDS ORDERED: LIDOCAINE HCL 2% 2 ML VIAL (20MG/ML) ONE (17:11)
[2017-05-20] MEDS ORDERED: ONDANSETRON INJ 2 MG/ML 2 ML VIAL ONE (17:11)
[2017-05-20] MEDS ORDERED: SUCCINYLCHOLINE CHLORIDE 20 MG/ML 10 ML VIAL IV ONE (17:11)
[2017-05-20] MEDS ORDERED: DEXAMETHASONE SOD INJ 4 MG/ML VIAL ONE (17:11)
[2017-05-20] MEDS ORDERED: ROCURONIUM BROMIDE 10 MG/ML 5 ML VIAL IV ONE (17:11)
[2017-05-20] MEDS ORDERED: FLOSEAL HEMOSTATIC MATRIX 10ML TOP ONE (17:20)
[2017-05-20] MEDS: FENTANYL CITRATE INJ 50 MCG/1 ML 2 ML VIAL IV PRN ×5 (17:47→18:09)
--- NOTE | 2017-05-20 18:11 | Anesthesiology Progress Note ---
Anesthesia Post Op Note Date & Time May 20, 2017 at 18:11 Vital Signs Pain Intensity: 6.0 Vital Signs Past 12 Hours Date Time Temp Pulse Resp B/P (MAP) Pulse Ox O2 Delivery O2 Flow Rate FiO2 05/20/17 17:35 36.0 98 16 111/84 100 Oxymask 10 05/20/17 16:00 Room Air 05/20/17 15:44 36.6 82 18 105/71 100 Room Air 05/20/17 15:02 36.6 82 18 105/71 (82) 100 Room Air 05/20/17 10:03 88 116/79 (91) 05/20/17 08:00 Room Air 05/20/17 07:27 36.6 92 20 114/80 (91) 100 Room Air Notes Mental Status: alert / awake / arousable, participated in evaluation Pt Amnestic to Procedure: Yes Nausea / Vomiting: adequately controlled Pain: adequately controlled Airway Patency, RR, SpO2: stable & adequate BP & HR: stable & adequate Hydration State: stable & adequate Anesthetic Complications: no major complications apparent
[2017-05-20] MEDS: HYDROmorphone INJ 1 MG/ML SYR IV PRN ×2 (18:17→18:26)
[2017-05-20 20:30] LABS: HEMATOCRIT 22.2 % (37-47)
[2017-05-20] MEDS: OXYCODONE HCL IR 5 MG TAB (IMMEDIATE RELEASE) PO PRN (21:42)
--- NOTE | 2017-05-20 23:24 | Family Medicine Progress Note ---
Progress Note Date of Service May 20, 2017. Subjective Pt evaluation today including: conversation w/ patient, physical exam, chart review, lab review, review of studies Pain: No pain reported this morning Voiding: no voiding problems, no incontinence Patient states that she had an episode of epistaxis this morning at 4am when she go up to urinate. She also had another episode around 10am. She initially passes a clot then has profuse bleeding, and it usually occurs after getting up to walk. She states that during the nose bleeding episodes she experiences shortness of breath and lightheadedness. She currently complaints of a rapid heart rate and feeling very fatigued. Constitutional: No fever, No chills Respiratory: + shortness of breath Cardiovascular: + palpitations, No chest pain Abdomen: No pain, No nausea, No vomiting, No diarrhea, No constipation Neurologic: + weakness, No numbness/tingling, No balance problems Medications Current Inpatient Medications Medications (Trade) Dose Ordered Sig/Darrion Route Start Time Stop Time Status Last Admin Dose Admin Acetaminophen (Tylenol Tab) 650 mg Q6H PRN PO 05/19/17 20:15 06/18/17 20:14 05/20/17 11:08 650 MG Al Hydrox/Mg Hydrox/Simethicone (Maalox Max Susp) 15 ml Q4H PRN PO 05/19/17 20:15 06/18/17 20:14 Magnesium Hydroxide (Milk Of Magnesia Susp) 30 ml Q6H PRN PO 05/19/17 20:15 06/18/17 20:14 Polyethylene (Miralax Powder Packet) 17 gm DAILY PRN PO 05/19/17 20:15 06/18/17 20:14 Ondansetron HCl (Zofran Inj) 4 mg Q6H PRN IV 05/19/17 20:15 06/18/17 20:14 Oxymetazoline HCl (Afrin 0.05% Nasal Hines) 1 sprays Q1H PRN NA 05/19/17 20:15 06/18/17 20:14 Miscellaneous (Iv Fluids Completed) 1 ea PRN PRN N/A 05/19/17 20:30 05/19/18 20:29 05/20/17 12:16 1 EA Amphetamine Aspartate/ Amphetam Sulf (Amphetamine Aspartate/Amph Sulf/Dextramphet) 20 mg BID@0600,1800 PO 05/20/17 06:00 06/03/17 05:59 05/20/17 06:29 20 MG Miscellaneous Information (Order Awaiting Action) 1 ea QS N/A 05/20/17 00:00 06/19/17 00:00 Ioversol (Optiray 320) 100 ml UD PRN IV 05/19/17 21:30 05/23/17 21:29 Oxycodone HCl (Roxicodone Immediate Rel Tab) 5 mg Q6H PRN PO 05/20/17 21:45 06/03/17 21:44 05/20/17 21:42 5 MG Objective Vital Signs Date Time Temp Pulse Resp B/P (MAP) Pulse Ox O2 Delivery O2 Flow Rate FiO2 05/20/17 21:30 36.3 92 20 100/67 (78) 100 Oxymask 2.0 05/20/17 20:23 36.3 100 20 103/71 (82) 100 Oxymask 2.0 05/20/17 19:22 36.7 84 18 104/71 (82) 100 Oxymask 2.0 05/20/17 18:52 36.6 84 18 108/75 (86) 100 Oxymask 2.0 05/20/17 18:37 85 20 05/20/17 18:37 82 20 100 05/20/17 18:36 109/69 05/20/17 18:32 36.9 05/20/17 18:32 80 17 05/20/17 18:32 81 17 100 05/20/17 18:31 110/69 05/20/17 18:27 85 15 05/20/17 18:27 86 15 100 05/20/17 18:26 114/73 05/20/17 18:22 84 12 05/20/17 18:22 83 12 100 05/20/17 18:21 117/76 05/20/17 18:20 75 20 100 05/20/17 18:20 77 20 05/20/17 18:16 106/75 05/20/17 18:15 81 16 98 05/20/17 18:15 80 16 05/20/17 18:11 116/73 05/20/17 18:10 95 20 96 05/20/17 18:10 95 20 05/20/17 18:06 112/73 05/20/17 18:05 86 18 91 05/20/17 18:05 85 18 05/20/17 18:01 111/72 05/20/17 18:00 96 12 05/20/17 18:00 99 12 100 05/20/17 17:56 123/78 05/20/17 17:55 85 15 05/20/17 17:55 86 15 100 05/20/17 17:51 115/75 05/20/17 17:50 88 19 05/20/17 17:50 88 19 100 05/20/17 17:46 122/80 05/20/17 17:45 98 17 05/20/17 17:45 97 17 100 05/20/17 17:41 122/79 05/20/17 17:40 95 16 05/20/17 17:40 95 16 100 05/20/17 17:36 111/84 05/20/17 17:35 36.0 98 16 111/84 100 Oxymask 10 05/20/17 16:00 Room Air 05/20/17 15:44 36.6 82 18 105/71 100 Room Air 05/20/17 15:02 36.6 82 18 105/71 (82) 100 Room Air 05/20/17 10:03 88 116/79 (91) 05/20/17 08:00 Room Air 05/20/17 07:27 36.6 92 20 114/80 (91) 100 Room Air 05/19/17 23:51 36.5 79 18 94/61 (72) 99 Room Air 05/19/17 23:30 Room Air Physical Exam General Appearance: WD/WN, no apparent distress Eyes: normal inspection, sclerae normal ENT: + pertinent finding (dried blood in the left nare) Neck: supple, no carotid bruits Respiratory/Chest: chest non-tender, lungs clear, normal breath sounds, + decreased breath sounds Cardiovascular: regular rate, rhythm, no edema, no gallop Abdomen: normal bowel sounds, non tender, soft Neurologic/Psychiatric: alert, normal mood/affect, oriented x 3 Laboratory Results Results Past 24 Hours Test 05/20/17 05:20 05/20/17 07:04 05/20/17 13:48 05/20/17 20:20 Range/Units Urine Color YELLOW Urine Appearance CLEAR CLEAR Urine pH 6.0 4.5-7.5 Urine Specific [place] > 1.030 1.000-1.030 Urine Protein TRACE NEG Urine Glucose (UA) NEG NEG Urine Ketones NEG NEG Urine Occult Blood NEG NEG Urine Nitrite POS NEG Urine Bilirubin NEG NEG Urine Urobilinogen NEG NEG Urine Leukocyte Esterase NEG NEG Urine WBC (Auto) 1-5 0-5 /hpf Urine RBC (Auto) 0-4 0-4 /hpf Urine Hyaline Casts (Auto) 0 0-5 /lpf Urine Epithelial Cells (Auto) >30 0-5 /lpf Urine Bacteria (Auto) 2+ NEG Urine Pathogenic Casts 0 /lpf White Blood Count 7.15 4.8-10.8 K/uL Red Blood Count 3.08 4.2-5.4 M/uL Hemoglobin 8.4 7.9 7.5 12.0-16.0 g/dL Hematocrit 25.8 24.7 22.2 37-47 % Mean Corpuscular Volume 83.8 80-100 fL Mean Corpuscular Hemoglobin 27.3 25-34 pg Mean Corpuscular Hemoglobin Concent 32.6 32-36 g/dl RDW Standard Deviation 42.7 36.4-46.3 fL RDW Coefficient of Variation 13.8 11.5-14.5 % Platelet Count 277 130-400 K/uL Mean Platelet Volume 9.9 7.4-10.4 fL Sodium Level 136 136-145 mmol/L Potassium Level 3.4 3.5-5.1 mmol/L Chloride Level 102 98-107 mmol/L Carbon Dioxide Level 28 21-32 mmol/L Anion Gap 6.0 3-11 mmol/L Blood Urea Nitrogen 12 7-18 mg/dl Creatinine 0.80 0.60-1.20 mg/dl Est Creatinine Clear Calc Drug Dose 111.8 ml/min Estimated GFR () 117.9 Estimated GFR (Non- 101.8 BUN/Creatinine Ratio 14.9 10-20 Random Glucose 103 70-99 mg/dl Calcium Level 8.5 8.5-10.1 mg/dl Assessment and Plan Patient is a 26 year old female that has been experiencing persistent epistaxis over the last 2 weeks 1) Persistent Epistaxis --> despite conservative measures to prevent bleeding - Attempted nasal packing in the ED unsuccessful - Has had intermittent bleeding lasting 30 minutes, although yesterday experienced prolonged bleeding for over 4 hours - Plan for endoscopic cautery with Dr. Cast to prevent further bleeding - 1L bolus of fluid this morning for lightheadedness - PT/INR and PTT within normal limits - CT sinuses show no acute abnormalities 2) Anemia - Hbg yesterday morning measured 11,3 and AM labs today show Hgb of 8.4 - Plan to transfuse with Hgb < 7 or if symptomatic 2/2 anemia 3) DVT - SCDs 4) Code Status - Full Resuscitation Resident Physician Supervision Note: I interviewed and examined the patient. Discussed with Dr. Suero and agree with findings and plan as documented in the note. Any exceptions or clarifications are listed here: None Documented By: Carlos Steward feeling lightheaded. had a small additional noselbeed ealry this AM. carolee noted nad breathing unlabored, no pallor or icterus epistaxis w acute blood loss anemia - for OR later today, right now hemodynamically stable, continue current care Resident Tracking Resident Involvement: Resident Care Provided Care Provided: Adult Hospital Medicine
[2017-05-21] VITALS (10 sets, daily range): BP systolic 87–120; BP diastolic 53–82; PULSE 79–111; TEMP 36.1–36.8; O2SAT 96–100
[2017-05-21] MEDS: ONDANSETRON INJ 2 MG/ML 2 ML VIAL IV PRN ×2 (02:27→17:12)
[2017-05-21] MEDS: AMPHETAMINE ASP/SULF/DEXTRAMPH 20 MG TAB PO SCH (06:29)
[2017-05-21] MEDS: OXYCODONE HCL IR 5 MG TAB (IMMEDIATE RELEASE) PO PRN (06:32)
--- NOTE | 2017-05-21 07:07 | OPERATIVE REPORT ---
DATE OF OPERATION: 05/20/2017 PREOPERATIVE DIAGNOSIS: Posterior epistaxis. POSTOPERATIVE DIAGNOSIS: Same. PROCEDURE: Endoscopic cautery and posterior packing. SURGEON: Socorro Majano MD. ANESTHESIA: General endotracheal. COMPLICATIONS: None. BLOOD LOSS: 2 mL during surgery. INDICATIONS: This 26-year-old lady has had recurrent epistaxis for the past 2 weeks. Her hemoglobin dropped from 11 yesterday to 9.3 then to 8.4 and then to 7.9, right before surgery. Above procedure felt to be indicated. DESCRIPTION OF PROCEDURE: The patient brought to the operating room and placed in supine position. General endotracheal anesthesia was induced, draped in the usual sterile manner. The nose was decongested using cottonoids with a topical solution of 4 mL of 4% Xylocaine mixed with 1 mL of epinephrine . The right nostril was visualized with the endoscope and the bleeding site was found underneath the clot at the mid to posterior septum and also on the right inferior turbinate. There was also another spot superiorly at the anterior end of the middle turbinate. All 3 sites were cauterized using the suction cautery. No other sites of bleeding were found. The posterior packing was started with 3 strips of Gelfoam at the posterior equina and then with 10 mL of FloSeal filling the nasal cavity from the floor up to the upper nasal vault. The single piece of Gelfoam was placed anteriorly in the right naris. The left naris was also visualized and noted to have no bleeding. The stomach was evacuated with an NG tube. There was no blood noted in the stomach. The patient tolerated the procedure well and was taken to recovery area in satisfactory condition. I attest to the content of the Intraoperative Record and any orders documented therein. Any exception s are noted below.
[2017-05-21 07:50] LABS: BASO % 0.1 %; BASO ABS # 0.01 K/uL (0-0.2); HEMATOCRIT 22.9 % (37-47); IG% 0.4 %; LYMPH % 9.3 %; LYMPH ABS # 0.92 K/uL (1.2-3.4); MEAN CELL VOLUME 83.6 fL (80-100); MEAN CORPUSCULAR HGB CONC 32.3 g/dl (32-36); MONO % 6.2 %; PLATELET COUNT 294 K/uL (130-400); RED BLOOD COUNT 2.74 M/uL (4.2-5.4); WHITE BLOOD COUNT 9.84 K/uL (4.8-10.8)
[2017-05-21 08:11] LABS: COMPLETE YES
[2017-05-21] MEDS: LACTATED RINGER'S 1000ML 1,000 ML IV SCH ×2 (10:46→11:13)
[2017-05-21] MEDS ORDERED: NURSING VERBAL MED ORDER ONE (11:30)
[2017-05-21] MEDS ORDERED: MoRPHine SULFATE 2 MG/ML CARP IV STA ×2 (13:11→13:20)
[2017-05-21] MEDS ORDERED: MoRPHine SULFATE 2 MG/ML CARP ONE ×2 (13:12→13:23)
[2017-05-21] MEDS ORDERED: HYDROmorphone INJ 1 MG/ML SYR IV STA ×2 (13:41→14:37)
--- NOTE | 2017-05-21 13:41 | Discharge Instructions ---
Discharge Instructions Date of Service May 21, 2017. Admission Reason for Admission: Anemia, Nosebleed Discharge Discharge Diagnosis / Problem: Persistent Epistaxis Discharge Goals Goal(s): Decrease discomfort, Therapeutic intervention Activity Recommendations Activity Limitations: per Instructions/Follow-up section . Instructions / Follow-Up Instructions / Follow-Up Patient was treated at [facility] for persistent epistaxis. The patient had been having ongoing epistaxis for the past 2 weeks worsening acutely over the last 2 days. The patient has had an acute Hgb drop from 11 to 7.4. The patient was taken to the OR by ENT and despite cauterization continued to have persistent bleeding. The patient was complaining of blurriness of vision and lightheadedness and received a unit of PRBC. The patient was re-evaluated by ENT and posterior and anterior packing was placed and the case was discussed with Dr. Muir at [place] for transfer with intention to perform embolization. Current Hospital Diet Patient's current hospital diet: Regular Diet Discharge Diet Recommended Diet: Regular Diet Procedures Procedures Performed: Nasal Bleed Endoscopic Cautery Pending Studies Studies pending at discharge: no Medical Emergencies . Who to Call and When: Medical Emergencies: If at any time you feel your situation is an emergency, please call 911 immediately. . Non-Emergent Contact Non-Emergency issues call your: Primary Care Provider . . "Provider Documentation" section prepared by Mac Suero. . VTE Core Measure Inpt VTE Proph given/why not?: Contraindicated
[2017-05-21] MEDS ORDERED: HYDROmorphone INJ 1 MG/ML SYR ONE (13:45)
[2017-05-21] MEDS ORDERED: HYDROmorphone INJ 2 MG/ML SYR/VIAL ONE (14:44)
[2017-05-21] MEDS: HYDROmorphone INJ 1 MG/ML SYR IV PRN ×2 (15:51→16:58)
--- NOTE | 2017-05-21 17:57 | Discharge Summary ---
Discharge Summary Date of Service May 21, 2017. Discharge Summary Admission Date: May 19, 2017 at 20:11 Discharge Date: May 21, 2017 Discharge Disposition: Home Principal Diagnosis: Persistent Epistaxis Problems/Secondary Diagnoses: (1) Asthma, Unspecified Status: Chronic (2) Attention-Deficit Hyperactivity Disorder, Unspecified Type Status: Chronic (3) Endometriosis Status: Chronic (4) Endometriosis Status: Chronic (5) Polycystic Ovarian Syndrome Status: Chronic (6) Uterine mass Status: Chronic Immunizations: Have You Had Influenza Vaccine: No History of Tetanus Vaccine?: UTD Tetanus Immunization Date: May 20, 2006 History of Pneumococcal: No History of Hepatitis B Vaccine: Yes Medication Reconciliation Continued Medications: Amphetamine-Dextroamphetamine 20MG (Adderall 20MG) 1 Tab Tab 20 MG PO BID, TAB Control Pills ( Control Pills) Tab 1 TAB PO DAILY, TAB Discharge Exam Review of Systems: Constitutional: + fatigue, No fever, No chills Eyes: + problem reported (blurry vision), No eye pain ENT: + unusual epistaxis, No sore throat Respiratory: + shortness of breath, No cough, No sputum, No hemoptysis Cardiovascular: + palpitations, No chest pain Abdomen: + nausea, No pain, No vomiting, No diarrhea, No constipation Neurologic: No numbness/tingling, No vertigo, No balance problems Physical Exam: General Appearance: + moderate distress, + pertinent finding (patient in acute discomfort due to right nasal packing on discharge. Alert and oriented and coherently answering questions.) Eyes: normal inspection, sclerae normal ENT: + pertinent finding (Nasal packing placed by in the right nare placing pressure towards the right nasal sinus. No gross epistaxis at the time of discharge.) Neck: supple, trachea midline Respiratory/Chest: chest non-tender, lungs clear, normal breath sounds Cardiovascular: regular rate, rhythm, no edema, no gallop, no murmur Abdomen / GI: normal bowel sounds, non tender, soft Extremities: no calf tenderness, normal capillary refill Neurologic/Psychiatric: no motor/sensory deficits, alert, oriented x 3 Skin: normal color Hospital Course The patient is a 26-year-old female that presented with a two-week history of epistaxis. The patient took her hemoglobin the morning before coming to the ED and her hemoglobin was found to be 11.1. Patient was seen in clinic in the afternoon by her primary care provider, and was found to have prolonged bleeding greater than 4 hours and was sent to the emergency department. In the emergency department her hemoglobin was found to be 9.3. Nasal packing was unsuccessful despite multiple attempts, but they were able to control the bleeding and a consult was placed with ENT. Early in the morning at 4 AM and once again at 10 AM the patient once again had episodes of epistaxis. The patient that afternoon was evaluated by Dr. Majano, and was taken to the OR for cauterization. Patient once again had episodes of bleeding this morning, and after further evaluation by Dr. Majano it was decided that the patient would require embolization. A bed was obtained at and agreed to accept the patient. Prior to transport Dr. Majano placed a nasal packing to prevent further bleeding. The patient complained of acute pain due to the placement of the packing, and required multiple doses of morphine and Dilaudid to control her pain. On discharge the patient was found to be comfortable, alert and oriented, and was able to be transported while being stable. The patient did receive 1 unit of blood prior to discharge. Resident Physician Supervision Note: I interviewed and examined the patient. Discussed with Dr. Suero and agree with findings and plan as documented in the note. Any exceptions or clarifications are listed here: None Documented By: Carlos Steward repeated nosebleeds despite ENT procedure. symptomatic anemia and quite massive hemorrhage (documented Hgb went from 11 in the office to 7.4, and that was actually before the re-bleed that led to transfer to tertiary care). stable for ACLS ground but requiring tertiary intervention feeling lightheaded, packing really bothersome vitals stable, when i saw her no distress, later in significant distress due to discomfort from packing severe epistaxis - for tertiary treatment acute hemorrhagic anemia - fairly massive given ~4.5 drop in Hgb from office to today. required fluid boluses and (thus far) 1 unit PRBC transfusion. fortunately while significant symptosm and evidence of fairly massive blood loss , no hemodynamic compromise. for transfer to tertiary Total Time Spent: Greater than 30 minutes This includes examination of the patient, discharge planning, medication reconciliation, and communication with other providers. Discharge Instructions Please refer to the electronic Patient Visit Report (Discharge Instructions) for additional information. Additional Copies To Grine, Emerald M.,D.O. Resident Tracking Resident Involvement: Resident Care Provided Care Provided: Adult [facility] Medicine
== END 2017-05-21 17:28 | disposition short-term general hospital (02) ==
LOC: C.EDB 18:45 → C.MS4W 20:11 → ENRESERV 21:01
PROVIDERS: ADMIT Student in an Organized Health Care Education/Training Program; ATTEND Family Medicine
DX: R04.0 Epistaxis (principal); D50.0 Iron deficiency anemia secondary to blood loss (chronic); J45.909 Unspecified asthma, uncomplicated; F90.9 Attention-deficit hyperactivity disorder, unspecified type; Z90.49 Acquired absence of other specified parts of digestive tract; Z79.3 Long term (current) use of hormonal contraceptives; N80.9 Endometriosis, unspecified

== ENCOUNTER → 2017-05-19 | Outpatient (CLI) | payer OTHER ==
[2017-05-19 17:09] LABS: BASO % 0.3 %; BASO ABS # 0.03 K/uL (0-0.2); COMPLETE YES; EOS % 0.6 %; HEMATOCRIT 28.4 % (37-47); IG% 0.4 %; LYMPH % 27.5 %; MEAN CELL VOLUME 83.8 fL (80-100); MEAN CORPUSCULAR HEMOGLOBIN 26.8 pg (25-34); MEAN PLATELET VOLUME 10.4 fL (7.4-10.4); MONO % 7.8 %; NEUT % 63.4 %; PLATELET COUNT 309 K/uL (130-400); RED BLOOD COUNT 3.39 M/uL (4.2-5.4); WHITE BLOOD COUNT 10.55 K/uL (4.8-10.8)
[2017-05-19 17:34] LABS: ALT/SGPT 20 U/L (12-78); AST/SGOT 10 U/L (15-37); BLOOD UREA NITROGEN 14 mg/dl (7-18); C-REACTIVE PROTEIN 0.31 mg/dl (0-0.29); CALCIUM 9.1 mg/dl (8.5-10.1); CARBON DIOXIDE 29 mmol/L (21-32); CHLORIDE 102 mmol/L (98-107); CREATININE 0.85 mg/dl (0.60-1.20); GLUCOSE 119 mg/dl (70-99); POTASSIUM 3.3 mmol/L (3.5-5.1); SODIUM 138 mmol/L (136-145)
[2017-05-19 17:36] LABS: ALKALINE PHOSPHATASE 60 U/L (45-117)
--- NOTE | 2017-05-20 13:55 | CODING QUERY MEDICAL NECESSITY ---
SUPPORTING DIAGNOSIS NEEDED Mio LANDRY, A supporting diagnosis is required for the test/procedure performed on this patient in order for us to be reimbursed by the patient's insurance. Please provide a supporting diagnosis for the following test/procedure listed below next to the test name along with your signature. *If there is no additional diagnosis for this patient that would support the following test/procedure please document that below next to the test/procedure. Test(s)/Procedure(s) that require a supporting diagnosis: * CPK DIAGNOSIS: * CMP DIAGNOSIS: * C-REACTION PROTEIN DIAGNOSIS: * PERNELL DIAGNOSIS: * D-DIMER DIAGNOSIS: DATE OF SERVICE: 05/19/17 Provider Signature: Date: Thank you Carlitos Dunlap [facility] Information Management Once completed, please kindly fax back to [phone] For questions please call [phone]
== END | disposition home or self-care (01) ==
LOC: C.LAB1850 16:30
PROVIDERS: ATTEND Physician Assistant
DX: M79.1 Myalgia (principal); R29.898 Other symptoms and signs involving the musculoskeletal system; M79.604 Pain in right leg

== ENCOUNTER → 2017-07-30 | Outpatient (CLI) | payer OTHER ==
[~2017-07-30] MED LIST changes: +AMPH20TA2 PO; +BCPILLS PO; -PRENTAB26 PO
--- NOTE | 2017-07-30 10:50 | DIAGNOSTIC IMAGING REPORT ---
EXAMINATION: PELVIC ULTRASOUND CLINICAL HISTORY: Z30.430 IUD CHECK COMPARISON STUDY: ultrasound dated 08/23/2016 FINDINGS: The uterus measured 8.3 x 4.2 x 5.2 cm.. The endometrial stripe measured 6 mm. An IUD was visualized within the endometrial cavity. The right ovary measured 23 x 38 x 24 mm. The left ovary measured 32 x 24 x 21 mm. There is no ultrasonographic evidence of ovarian torsion. It should be noted that ovarian torsion can be present with normal Doppler ultrasonographic findings. There was no evidence of pathologic free pelvic fluid. IMPRESSION: An IUD was visualized within the endometrial cavity. No uterine or ovarian abnormalities were visualized Electronically signed by: Bentley Sidhu M.D. 07/30/2017 10:48 AM Dictated Date/Time: 07/30/2017 10:44 AM
== END | disposition home or self-care (01) ==
LOC: C.ULTR 10:10
PROVIDERS: ATTEND Family Medicine
DX: Z30.430 Encounter for insertion of intrauterine contraceptive device (principal)

== ENCOUNTER → 2017-09-05 | Outpatient (CLI) | payer OTHER ==
[~2017-09-05] MED LIST changes: +AMPH30TA2 PO
[2017-09-05 08:26] LABS: BASO % 0.2 %; BASO ABS # 0.02 K/uL (0-0.2); EOS % 0.6 %; EOS ABS # 0.05 K/uL (0-0.5); HEMATOCRIT 35.4 % (37-47); HEMOGLOBIN 11.3 g/dL (12.0-16.0); IG# 0.03 K/uL (0.00-0.02); LYMPH ABS # 1.88 K/uL (1.2-3.4); MEAN CELL VOLUME 78.5 fL (80-100); MEAN CORPUSCULAR HEMOGLOBIN 25.1 pg (25-34); MEAN PLATELET VOLUME 10.2 fL (7.4-10.4); MONO % 8.2 %; MONO ABS # 0.67 K/uL (0.11-0.59); NEUT % 67.6 %; NEUT ABS # 5.52 K/uL (1.4-6.5); PLATELET COUNT 326 K/uL (130-400); RED CELL DISTRIBUTION WIDTH CV 15.6 % (11.5-14.5); WHITE BLOOD COUNT 8.17 K/uL (4.8-10.8)
[2017-09-05 08:36] LABS: MEAN CORPUSCULAR HGB CONC 31.9 g/dl (32-36)
== END | disposition home or self-care (01) ==
LOC: C.LAB 08:17
PROVIDERS: ATTEND Family Medicine
DX: D64.9 Anemia, unspecified (principal)

== ENCOUNTER → 2017-09-05 | Outpatient (CLI) | payer OTHER ==
--- NOTE | 2017-09-05 17:35 | DIAGNOSTIC IMAGING REPORT ---
TRANSVAGINAL HISTORY: 27 years-old Female ELEVATED HCG,IUD,R/O ECTOPIC VS IUP increased beta hCG level with intrauterine device. COMPARISON: Pelvic ultrasound 07/30/2017 TECHNIQUE: Multiple real-time sonographic images of the deep pelvic structures were obtained transabdominally and transvaginally assessing grayscale appearance, color and spectral flow FINDINGS: TRANSABDOMINAL: Anteflexed uterus measures 7.4 x 4.0 x 4.5 cm. Endometrium measures 0.8 cm. Intrauterine device is noted. The right ovary measures 4.4 x 2.4 x 2.8 cm and is unremarkable with arterial inflow documented. Left ovary is not well seen transabdominally. TRANSVAGINAL: Uterus measures 8.2 x 3.9 x 5.0 cm. Endometrium is mildly heterogeneous and measures 5 mm. IUD appears to be appropriately positioned within the endometrial canal within the mid and fundal portions of the uterus. No intrauterine or extra uterine gestation identified. The right ovary measures 4.8 x 2.3 x 2.8 cm and is unremarkable with normal follicles, arterial inflow and venous outflow documented. Left ovary measures 3.7 x 1.6 x 3.4 cm and is within normal limits with follicles seen, arterial inflow and venous outflow documented. No significant free pelvic fluid identified. IMPRESSION: 1. No intrauterine or extrauterine gestation identified. 2. IUD appears to be in appropriate positioning. 3. Nonspecific mildly heterogeneous appearance of the endometrium. 4. Unremarkable sonographic appearance of the bilateral ovaries and adnexa. The above report was generated using voice recognition software. It may contain grammatical, syntax or spelling errors. Electronically signed by: Shiva Welch M.D. 09/05/2017 5:33 PM Dictated Date/Time: 09/05/2017 5:29 PM
== END | disposition home or self-care (01) ==
LOC: C.ULTR 15:52
PROVIDERS: ATTEND Student in an Organized Health Care Education/Training Program
DX: E34.9 Endocrine disorder, unspecified (principal)

== ENCOUNTER 2017-09-07 20:21 | Observation (INO) | payer OTHER ==
[~2017-09-07] VITALS: Ht 162.6 cm; Wt 82.8 kg
[~2017-09-07 20:21] MED LIST changes: -AMPH30TA2 PO
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
[2017-09-07 21:14] LABS: BASO % 0.3 %; BASO ABS # 0.02 K/uL (0-0.2); EOS % 1.8 %; EOS ABS # 0.13 K/uL (0-0.5); HEMATOCRIT 34.4 % (37-47); HEMOGLOBIN 10.5 g/dL (12.0-16.0); IG# 0.04 K/uL (0.00-0.02); LYMPH % 35.7 %; LYMPH ABS # 2.58 K/uL (1.2-3.4); MEAN CELL VOLUME 77.8 fL (80-100); MEAN CORPUSCULAR HEMOGLOBIN 23.8 pg (25-34); MEAN CORPUSCULAR HGB CONC 30.5 g/dl (32-36); MEAN PLATELET VOLUME 10.4 fL (7.4-10.4); MONO % 10.4 %; MONO ABS # 0.75 K/uL (0.11-0.59); NEUT % 51.2 %; PLATELET COUNT 299 K/uL (130-400); RED CELL DISTRIBUTION WIDTH CV 15.5 % (11.5-14.5); RED CELL DISTRIBUTION WIDTH SD 44.6 fL (36.4-46.3); WHITE BLOOD COUNT 7.22 K/uL (4.8-10.8)
[2017-09-07] MEDS ORDERED: AMPH30TA2 PO (21:15)
[2017-09-07 21:24] LABS: PTT PATIENT 25.6 SECONDS (21.0-31.0)
[2017-09-07 21:30] LABS: ALBUMIN 3.8 gm/dl (3.4-5.0); CALCIUM 9.4 mg/dl (8.5-10.1); CREATININE 0.93 mg/dl (0.60-1.20); POTASSIUM 3.5 mmol/L (3.5-5.1)
[2017-09-07 21:33] LABS: TOTAL PROTEIN 7.5 gm/dl (6.4-8.2)
--- NOTE | 2017-09-07 22:51 | DIAGNOSTIC IMAGING REPORT ---
ECTOPIC HISTORY: 27 years-old Female high quant follow-up study in a patient with elevated beta-hCG level with intrauterine device. The serial quantitative beta hCG levels have been trending downward COMPARISON: Pelvic ultrasound 09/05/2017 TECHNIQUE: Multiple real-time sonographic images of the deep pelvic structures were obtained transabdominally and transvaginally assessing grayscale appearance, color and spectral flow FINDINGS: TRANSABDOMINAL: Anteflexed uterus measures 7.4 x 4.3 x 5.3 cm. Endometrium measures 1.0 cm in thickness. Left ovary measures 2.3 x 1.7 x 2.2 cm and is unremarkable with arterial inflow documented. TRANSVAGINAL: Intrauterine device is noted which appears appropriate position within the mid endometrial canal. Endometrium measures 9 mm in thickness is mildly heterogeneous. Uterus measures 8.0 x 4.1 x 4.3 cm. No intrauterine or extra uterine gestation identified. The right ovary measures 4.5 x 2.4 x 2.4 cm and is unremarkable with arterial inflow documented. No right adnexal mass lesions. Left ovary measures 3.9 x 2.1 x 3.0 cm and is also within normal limits with arterial inflow documented. No left adnexal mass lesions identified. No significant free pelvic fluid. IMPRESSION: 1. No intrauterine or extrauterine gestation identified. 2. IUD appears to be in satisfactory positioning. 3. Unremarkable sonographic appearance of the bilateral ovaries. The above report was generated using voice recognition software. It may contain grammatical, syntax or spelling errors. Electronically signed by: Shiva Welch M.D. 09/07/2017 10:50 PM Dictated Date/Time: 09/07/2017 10:46 PM
[2017-09-08] MEDS ORDERED: ACETAMINOPHEN 325 MG TAB PO PRN (00:15)
[2017-09-08] MEDS ORDERED: ZOLPIDEM TARTRATE 5 MG TAB PO PRN (00:15)
[2017-09-08] MEDS ORDERED: ONDANSETRON INJ 2 MG/ML 2 ML VIAL IV PRN (00:15)
--- NOTE | 2017-09-08 00:20 | HISTORY & PHYSICAL EXAMINATION ---
DATE OF CONSULTATION: 09/07/2017 TRANSIT PLANNING DIRECTOR CONSULT/HISTORY AND PHYSICAL CHIEF COMPLAINT: Positive test with IUD in place. of unknown location. HISTORY OF PRESENT ILLNESS: A 27-year-old now 4, para 2-1-0-3 who presents to the Emergency Room with the above chief complaint. I was contacted by her family doctor earlier today who had seen her most recently for gynecologic care. Apparently she did deliver a 27 weeks for abruption at [facility] last August. Since that time she notes that she had no vaginal bleeding, no period whatsoever. She was to undergo a hysterectomy for endometriosis that was severe with Dr. Andrade at [facility]. Beginning in June she began with heavy and irregular vaginal bleeding. She sought care at the family practice office with Dr. Zuniga's group. On July 28, they performed a test that was negative and also with the heavy bleeding, opted to put a Mirena IUD in place. The patient claims that she was not sexually active until approximately 2 weeks from having the IUD placed. She reports abstinence prior to that as she did not want to have a . She reports using withdrawal method at that time. It was only one episode of sexual activity per her report. Due to persistence of irregular bleeding approximately 2 weeks ago, she called the family doctor's office. Her family physician's opted to order some blood testing that included an hCG. Unfortunately, she has not presented for the blood testing until 09/05/2017 where she was notified that the quantitative hCG was 5883. Apparently according to the family practice resident our office was contacted for advice. Of note an ultrasound on that date showed no abnormal findings including no IUP, no adnexal masses and IUD correctly located. The thought was that maybe was a sab and to repeat a quantitative hCG in 2 days. That was earlier today at approximately 4:00 p.m. and the result came back with a quantitative hCG at 47,000. I was contacted by the family practice physician after that time who was advising the patient to come to the Emergency Room and ultimately the patient did present to the Emergency Room. On her interview in the Emergency Department, the patient denies any complaints. She was at her youngest child's birthday constitution party today. She has no pain. She reports having some episodes of pain on and off in the last few weeks when she passed a big blood clot and then the pain will be relieved. She does report continued on and off heavy vaginal bleeding. She reports sexual history as noted above. She is in the ER room with her . She denies any urinary symptoms. She denies any bowel changes. She does indicate that she delayed her hysterectomy due to different hospitalizations and medical problems that her premature infant has been going through in the past few months. She was planning to undergo hysterectomy as mentioned with Dr. Andrade as soon as she was able to schedule it. PAST MEDICAL HISTORY: ADHD and asthma. PAST SURGICAL HISTORY: Cholecystectomy, hand surgery, uterine surgery and section. ALLERGIES: ZOLOFT. MEDICATIONS: Mirena IUD. SOCIAL HISTORY: Nonsmoker, no alcohol. FAMILY HISTORY: Significant for congenital heart disease. REVIEW OF SYSTEMS: She denies any nausea, vomiting, diarrhea, constipation. No chest pain, no shortness of breath, no fevers. She has some musculoskeletal right lower back pain that she says is positional, intermittent and nonsevere. She reports irregular heavy bleeding as noted above. No other complaints on a 9 system review. PHYSICAL EXAMINATION: VITAL SIGNS: Temperature 36.7, pulse 90, respirations 18, blood pressure 128/73 and initially 141/96, pulse ox 99% on room air. ABDOMEN: Exam performed, soft, nontender. No hernias. No hepatosplenomegaly, no rebound, no guarding. BACK: With no CVA tenderness. EXTREMITIES: Nontender. ASSESSMENT: 1. Positive quantitative hCG. 2. Intrauterine contraceptive device in place. 3. of unknown location. PLAN: I discussed with Dr. Ann this scenario. We will repeat an hCG as well as the ultrasound to determine if the 47,000 level was spurious as that is a sharp rise from the 5800 that was performed on Friday. The patient is completely asymptomatic, which also seems abnormal. I have raised concern about possible abdominal as a reason why she would have a markedly rising hCG without any abdominal pain. I have discussed that with the patient. I feel that the first step is to repeat the hCG values to see if the early result from today was spurious and then make a decision tree from there. We will also repeat the ultrasound for more information. I discussed this plan with the patient. We will readjust the plan once this information is back. ADDENDUM: The ultrasound showed a normally appearing IUD well positioned in the endometrium with a 9 mm thick endometrium, uterus measuring 8 x 4.1 x 4.3 cm with no evidence of any abnormal adnexal masses with normal ovaries that are unremarkable with normal blood flow. There is no significant free fluid. The initial hCG in the Emergency Room came back at less than 1. The patient had a point of care urine test that was easily positive. Since these results did not seem compatible particularly with the elevated hCG from earlier today, a new serum tube was drawn and the quantitative hCG was repeated and again returned less than 1. I spoke to the lab. They had done some extra quality measures in the lab and also repeated the earlier hCG that came back at 47,000 and verified that that was elevated; however, the 2 serum draws from the Emergency Room visit today have been negative. I spoke with Dr. Ann and we will plan to obtain a CT of the abdomen and pelvis to evaluate for any extra tissue that could explain a possible abdominal developing. I have discussed with the patient my concerns about a confusing picture and possible need to evaluate her overnight to determine what our next steps would be as the hCG values from earlier today and the subsequent ones from the Emergency Room visit do not seem to match up. I have received some information that the blood tubes that were drawn for the hCG on Friday and again on Friday may not have been drawn in our lab, but will need to investigate that further. FAISAL
--- NOTE | 2017-09-08 00:28 | Progress Note ---
Progress Note Date of Service Sep 08, 2017. Progress Note spoke to pt and spouse about findings thus far. CT was negative. serum qual negative. US negative. still cannot see how urine preg was easily positive and the 3 serum samples all negative. spoke to lab, they re-ran specimens and did a dilutional technique on last ER specimen and all negative. They did re-check outpt lab specimen from today and the [id number] was legitimate. Spoke to pt about all of that as some question about her having blood drawn outside of facility and bringing in. In fact, she told me on friday she did bring her own specimen back to the machines to have quant run-she said she "put in on the machine herself." Concern re: legitimacy of those results?? Still cannot explain postive urine test today. We sent pt into BR, she and spouse were only ones in the room and she gave sample and i was at desk when nurse did POC urine preg and showed me the result. That was over minutes where I was sitting at desk and could see her ER room from where I was sitting. No other persons went in and out of that room. I do not know how that could be falsified or erroneous and with such a result or urine preg than the serum quant should at least be 25. Very confusing picture. I feel warrants further investigation here. Plan to repeat both urine and blood studies in am. Make plan from there.
[2017-09-08] MEDS ORDERED: IV FLUIDS COMPLETED PRN (01:00)
[2017-09-08 01:35] VITALS: BP_SYST 109; BP_DIAS 53; BP_DIAS 85; PULSE 77; TEMP 37; O2SAT 95; O2SAT 97; Ht 162.6 cm; Wt 82.8 kg
--- NOTE | 2017-09-08 07:26 | DIAGNOSTIC IMAGING REPORT ---
ABDOMEN AND PELVIS CT WITHOUT CONTRAST CT DOSE: 508.78 mGy.cm HISTORY: Generalized abdominal pain. Possible . Possible ectopic . TECHNIQUE: Multiaxial CT images of the abdomen and pelvis were performed without contrast. A dose lowering technique was utilized adhering to the principles of ALARA. COMPARISON STUDY: Abdomen and pelvis CT 12/02/2015. FINDINGS: Punctate calcified granuloma seen within the right middle lobe. Patchy groundglass densities in the base of the right lower lobe which could represent a resolving pneumonia or mild dependent change. No pneumoperitoneum. No pneumatosis. No fractures within the visualized osseous structures. The unenhanced liver, spleen, adrenal glands, pancreas, and kidneys are unremarkable. No retroperitoneal lymphadenopathy. The bladder, uterus, and ovaries are unremarkable. An intrauterine device appears to be in good position. No definite adnexal masses on this noncontrast study. No bowel wall thickening or obstruction. Normal appendix. Cholecystectomy. IMPRESSION: No significant abnormality identified within the abdomen or pelvis. Suboptimal evaluation for an adnexal mass on this noncontrast study. However, no evidence for an intrauterine gestational sac within the abdomen or pelvis. Electronically signed by: Nicolas Nair M.D. 09/08/2017 7:25 AM Dictated Date/Time: 09/08/2017 7:19 AM
[2017-09-08 08:05] VITALS: BP 107/71; PULSE 80; TEMP 36.5; O2SAT 97
--- NOTE | 2017-09-08 08:48 | Progress Note ---
Progress Note Date of Service Sep 08, 2017. Progress Note s/ pt doing well this am. she denies pain in abdomen. has slight franklin but feels its related to poor sleep. o/ af vss abd soft nt, nd, no rebound, no guarding. no cvat a/ hd#2 ? of unknown location. abnl lab results. iud present p/ pt well aware that her picture is confusing. we plan to re-test quant and urine preg test this am. i have called pathologist about this confusing picture and he is looking into it. bib post coming on aware of situation and concerns. asked pt directly about tampering with specimens and she says both drawn here in the building on friday and friday. she says initial by lab melter supervisor open hearth furnace and they both walked it back to machines and 2nd sample she carried back and left for them to run. she denies that they were taken from someone else or drawn at home or by someone other than lab personnel.
--- NOTE | 2017-09-08 10:08 | OB/GYN Progress Note ---
JOB DEVELOPER Progress Note Date of Service Sep 08, 2017. Subjective conversation w/ patient, chart review, lab review Objective Vital Signs Date Time Temp Pulse Resp B/P (MAP) Pulse Ox O2 Delivery O2 Flow Rate FiO2 09/08/17 08:05 97 Room Air 09/08/17 08:05 36.5 80 20 107/71 (83) 97 Room Air 09/08/17 01:35 37.0 77 18 109/85 97 Room Air 09/08/17 01:35 97 Room Air 09/08/17 01:35 37.0 77 18 109/53 (71) 95 Room Air 09/08/17 01:24 90 17 106/65 97 09/08/17 00:00 88 19 99 Room Air 09/07/17 21:54 82 18 128/73 99 Room Air 09/07/17 20:23 36.7 90 18 141/96 94 Room Air Physical Exam General Appearance: WELL-APPEARING, NO APPARENT DISTRESS Laboratory Results Last 24 Hours Test 09/07/17 21:03 09/07/17 21:48 09/07/17 21:56 09/08/17 00:00 White Blood Count 7.22 K/uL Red Blood Count 4.42 M/uL Hemoglobin 10.5 g/dL Hematocrit 34.4 % Mean Corpuscular Volume 77.8 fL Mean Corpuscular Hemoglobin 23.8 pg Mean Corpuscular Hemoglobin Concent 30.5 g/dl Platelet Count 299 K/uL Mean Platelet Volume 10.4 fL Neutrophils (%) (Auto) 51.2 % Lymphocytes (%) (Auto) 35.7 % Monocytes (%) (Auto) 10.4 % Eosinophils (%) (Auto) 1.8 % Basophils (%) (Auto) 0.3 % Neutrophils # (Auto) 3.70 K/uL Lymphocytes # (Auto) 2.58 K/uL Monocytes # (Auto) 0.75 K/uL Eosinophils # (Auto) 0.13 K/uL Basophils # (Auto) 0.02 K/uL RDW Standard Deviation 44.6 fL RDW Coefficient of Variation 15.5 % Immature Granulocyte % (Auto) 0.6 % Immature Granulocyte # (Auto) 0.04 K/uL Prothrombin Time 10.8 SECONDS Prothromb Time International Ratio 1.0 Activated Partial Thromboplast Time 25.6 SECONDS Partial Thromboplastin Ratio 1.0 Sodium Level 139 mmol/L Potassium Level 3.5 mmol/L Chloride Level 104 mmol/L Carbon Dioxide Level 30 mmol/L Anion Gap 5.0 mmol/L Blood Urea Nitrogen 17 mg/dl Creatinine 0.93 mg/dl Est Creatinine Clear Calc Drug Dose 94.6 ml/min Estimated GFR () 97.6 Estimated GFR (Non- 84.2 BUN/Creatinine Ratio 18.4 Random Glucose 86 mg/dl Calcium Level 9.4 mg/dl Total Bilirubin 0.2 mg/dl Aspartate Amino Transf (AST/SGOT) 26 U/L Alanine Aminotransferase (ALT/SGPT) 30 U/L Alkaline Phosphatase 69 U/L Total Protein 7.5 gm/dl Albumin 3.8 gm/dl Globulin 3.7 gm/dl Albumin/Globulin Ratio 1.0 Human Chorionic Gonadotropin, Quant < 1 mIU/mL < 1 mIU/mL Human Chorionic Gonadotropin, Qual NEG Urine Test NEG Test 09/08/17 08:04 Human Chorionic Gonadotropin, Quant < 1 mIU/mL Assessment and Plan Continue Routine Care: - repeat quant and urine HCG from this AM are both negative - discussed case with Dr. Mj Maguire, director of the lab - Dr. Maguire said all previous quants were repeated and all results were the same (both positive and negative) - Dr. Maguire has arranged for specimens to be run at an outside lab, on a different make machine - the patient is asymptomatic - the negative results fit the clinical picture much better than the positive quants - pt desires d/c, feel this is reasonable - ectopic precautions reviewed with patient - f/u with Dr. Baker in 1-2 weeks as outpatient
--- NOTE | 2017-09-08 10:11 | Discharge Instructions ---
Discharge Instructions Date of Service Sep 08, 2017. Admission Reason for Admission: Abnormal Lab Test, Preg. Of Unknown Anatomic Locat Discharge Discharge Diagnosis / Problem: same Discharge Goals Goal(s): Continuing CLINICAL APPLICATION CONSULTANT care Activity Recommendations Activity Limitations: resume your previous activity . Instructions / Follow-Up Instructions / Follow-Up ACTIVITY RECOMMENDATIONS: regular activity SPECIAL CARE INSTRUCTIONS: Call Doctor if: * Increased pain and bleeding * Fever >100.4 degrees F * Pain not relieved by routine measures or pain medication ordered. FOLLOW UP VISIT: Follow-up Visit with: Dr. Baker When: 1-2 weeks Current Hospital Diet Patient's current hospital diet: Regular Diet Discharge Diet Recommended Diet: Regular Diet Pending Studies Studies pending at discharge: yes List of pending studies: outside lab tests Medical Emergencies . Who to Call and When: Medical Emergencies: If at any time you feel your situation is an emergency, please call 911 immediately. . Non-Emergent Contact Non-Emergency issues call your: [employer] Call Non-Emergent contact if: you have a fever, temperature is above 100.5, your pain is not controlled, your pain is worsening, your pain is unusual for you, your pain is concerning you . . "Provider Documentation" section prepared by Adalid Early. .
[2017-09-08 10:17] VITALS: BP 107/71; PULSE 80; TEMP 36.5; O2SAT 97
--- NOTE | 2017-09-11 12:55 | DISCHARGE SUMMARY ---
ADMISSION DIAGNOSES: 1. Positive quantitative hCG. 2. Intrauterine contraception device in place. 3. of unknown location. DISCHARGE DIAGNOSES: 1. No evidence of . 2. Same. BRIEF HISTORY AND HOSPITAL COURSE: A 27-year-old 4, para 2-1-0-3, who presented to the Emergency Department at the recommendation of her family doctor with elevating quantitative hCGs via the outpatient lab with a known Mirena IUD in place. Apparently, the patient had seen them and had undergone an hCG level on Friday prior to admission with a measurement of 5883. It was repeated on Friday due to her having bleeding and a possibility that the number would be declining and instead elevated to 47,000. The patient was advised to come to the Emergency Department. She had had a prior ultrasound on that Friday that did not show an obvious IUP or tubal or developing tubal and did show the IUD in the correct location. The details of this are in the history and physical. Subsequent to her evaluation in the Emergency Room, it was determined that her hCG values both serum quantitative and qualitative were less than 1, although a urine test was positive. She was kept overnight for more observation and plan to repeat the hCG values in the morning and a urine was repeated and negative and the serum quantitative value was still less than 1 and the value was sent out to an alternative lab and returned less than 1. It was determined that the patient was non. It was unclear why the results of her specimens from Friday and on the day of her admission as an outpatient were elevated. She did undergo further imaging while in the Emergency Room with no evidence of IUP or ectopic and then did undergo an abdominal pelvic CT with no evidence of abdominal . On the day of her discharge, she was told about the results which were both negative and advised to call with worsening symptoms and otherwise follow up in the clinic as an outpatient. The patient was completely asymptomatic during her admission.
== END 2017-09-08 10:25 | disposition home or self-care (01) ==
LOC: C.EDB 20:22 → C.OBG 09-08 00:20 → ENRESERV 09-08 01:02
PROVIDERS: ADMIT Obstetrics & Gynecology; ATTEND Obstetrics & Gynecology
DX: Z03.89 Encounter for observation for other suspected diseases and conditions ruled out (principal); Z97.5 Presence of (intrauterine) contraceptive device; N80.9 Endometriosis, unspecified; E28.2 Polycystic ovarian syndrome; J45.909 Unspecified asthma, uncomplicated; F90.9 Attention-deficit hyperactivity disorder, unspecified type; Z88.8 Allergy status to other drugs, medicaments and biological substances; Z90.49 Acquired absence of other specified parts of digestive tract; Z79.899 Other long term (current) drug therapy; Z80.9 Family history of malignant neoplasm, unspecified

== ENCOUNTER → 2017-09-07 | Outpatient (CLI) | payer OTHER | END | disposition home or self-care (01) | LOC: C.LABSPEC 10:05 | PROVIDERS: ATTEND Family Medicine | DX: E34.9 Endocrine disorder, unspecified (principal) ==

== ENCOUNTER → 2017-12-31 | Outpatient (CLI) | payer OTHER ==
[~2017-12-31] MED LIST changes: -AMPH20TA2 PO; +AMPH30TA2 PO; -BCPILLS PO
== END | disposition home or self-care (01) ==
LOC: C.LAB 09:38
PROVIDERS: ATTEND Family Medicine
DX: Z00.00 Encounter for general adult medical examination without abnormal findings (principal)

== ENCOUNTER 2023-01-21 10:45 | Inpatient (IN) ==
[2023-01-21] MEDS ORDERED: SODIUM CHLORIDE 0.9% 250 ML IV PRN ×2 (10:59→11:46)
[2023-01-21] MEDS ORDERED: SODIUM CHLORIDE 0.9% 500 ML IV SCH (11:00)
--- NOTE | 2023-01-21 11:05 | Emergency Department Note ---
Impression & Plan Syncope and collapse, AMS (altered mental status), Acute GI bleeding ED Provider Note INFORMANT: Patient and family ED PROVIDER(S): Alex Silverio MD CHIEF COMPLAINT: Syncopal episode, GI bleed PLAN: Disposition: Admitted Condition: Guarded Outpatient prescription management: none Referral: None MEDICAL DECISION MAKING: Patient presented because of a syncopal episode. She was also altered initially. She was responding to tactile and verbal stimuli. She was moving arms and legs frantically at times. She appeared pale. Blood work was obtained. Patient was started on saline hydration. She did have bright red blood per rectum. No active hemorrhaging was appreciated. The patient's vital signs stabilized. Her mental status improved. She was found to have a profound anemia on her laboratory testing. The patient had a significant tachycardia on ECG without any ST elevation or T wave inversion. CT imaging of the head was unremarkable and CT scan of the abdomen and pelvis did not reveal any acute findings. Given the marked drop in hemoglobin and GI bleed with colonoscopy today and endoscopy as well, I did place an urgent consult with Dr. De [facility]. He did evaluate the patient in the emergency department. He agreed with transfusion. He noted that her colon appeared to be normal on examination and there was no significant difficulty. She had duodenal biopsies done but no other procedure that would really cause any significant bleeding. I discussed the need for admission to hospital and he was in agreement. He will follow along with the patient. Patient was consented and did receive packed red blood cell transfusion. Consultation was made with Dr. Rohith Whitten of the [facility] service. Patient was evaluated in the ER for further management. Discussed with manager strategic partnerships After review of the information above and other included data, I feel the patient requires admission. Triage Nursing notes reviewed and agree them. Vital Signs: reviewed and remarkable for tachycardia Prior /Outside records reviewed: none Differential diagnosis: Infection, hypoglycemia, electrolyte abnormalities, overdose, toxicologic, cardiac sources, intracerebral event, neurologic, trauma, as well as other pathologies. Diagnostics, as interpreted by me: ECG: Twelve-lead ECG reveals a sinus tachycardia at 143 bpm with nonspecific inferior ST abnormality. No T wave inversion or ST elevation. No significant change other than tachycardia when compared to 07/08/2021. Cardiac Monitoring: Cardiac monitoring ordered by me: The patient was placed on continuous cardiac monitoring and observed. It revealed a sinus tachycardic rhythm at 107 bpm. Medical decision rules: none Imaging studies: CT scan of the head and abdomen pelvis as noted above. HPI: The patient is a 32year old female who presents to the Emergency Room after syncopal episode. Significant other is present and helps with the history. Patient reportedly has been dealing with anemia and heart issues. She was undergoing a endoscopy and colonoscopy today. She went home. She was in the bathroom and then called out. She noted some bleeding that significant other thinks went down the tub as he did not see any. Patient did have some blood on her undergarments on arrival to the emergency department. Patient reportedly had a syncopal episode while trying to go down the steps. No reported falls. She was at the bottom when this occurred. This started just prior to arrival and is shortly after arriving home from endoscopy/colonoscopy. On arrival to the emergency department the patient was somewhat responding to verbal and tactile stimuli.She would occasionally open her eyes and vigorously move about but was controllable with verbal redirection. History is limited secondary to the patient's medical acuity. PAST MEDICAL HISTORY: See Below, anemia PAST SURGICAL HISTORY: See Below, SOCIAL HISTORY: See Below, non-smoker HOME MEDICATIONS: See Below ALLERGIES: See Below VITALS: See Below PHYSICAL EXAMINATION: GENERAL: Lethargic but arouses to verbal stimuli, pale-appearing, in no distress HENT: Normocephalic, atraumatic. Oropharynx unremarkable. EYES: Pale conjunctiva. Sclera non-icteric. NECK: Inspection normal. Non-tender. Supple. No nuchal rigidity. FROM. No masses. RESPIRATORY: Clear to auscultation. No wheezes. No rales. Normal respiratory effort. CARDIAC: Tachycardic rate. Normal rhythm. No murmurs. No rubs. Extremities warm and well perfused. Pulses equal. No JVD. GI: Soft, non-distended. No tenderness to palpation. No rebound or guarding. No masses. RECTAL: Few scattered drops of blood noted externally. No gross hemorrhage present. Hemoccult positive. MUSCULOSKELETAL: Atraumatic. Chest examination reveals no tenderness. The back is symmetrical on inspection without obvious abnormality. There is no CVA tenderness to palpation. No joint edema. LOWER EXTREMITIES: Calves are equal size bilaterally and non-tender. No edema. No discoloration. NEURO: Altered sensorium. Speaks at times but very briefly. Difficulty with following specific commands. Moving all extremities vigorously at times. SKIN: Pale. No rash or jaundice noted. CRITICAL CARE: I have personally spent 65 minutes of critical care time in the direct management of this patient. This includes bedside care, interpretation of diagnostic studies, and testing, discussion with consultants, patient, and family members, and other required patient management activities. These minutes are in excess of all separately billable procedures. Past Med/Surg History Medical History ADHD Anemia hx Depression Endometriosis History of placenta abruption 2016 Obesity (BMI 30.0-34.9) Surgical History History of 09/06/2016 History of cholecystectomy History of endoscopic sinus surgery with sinus stent placement at [facility] ~2014 History of open reduction and internal fixation (ORIF) procedure ORIF right hand S/P hardware removal right hand S/P left knee arthroscopy S/P NANCY-BSO Family History Other No family history of adverse response to anesthesia No significant family history Denies family history of Bleeding disorder Social History Smoking Status: Never smoker Second Hand Exposure: No; Do You Dip or Chew Tobacco: No; Hx Alcohol Use: Yes Hx Substance Use: No Preferred Language: Kosovan Communication Ability: Effective Film Processor Required: No Beliefs That Will Affect Care: None Current Living Situation: Family Feels Safe at Home: Yes Assistive Devices: Brace/Splint/Immobilizer, Crutches and Glasses Allergies Allergies Allergy/AdvReac Type Severity Reaction Status Date / Time sertraline Allergy Mild Unknown Verified 01/21/23 14:05 Home Meds Home Medications Medication Instructions Recorded Confirmed bupropion HCl 300 mg 24 hr tablet, 300 mg PO DAILY 01/21/23 01/21/23 extended release dextroamphetamine-amphetamine 30 30 mg PO BID 01/21/23 01/21/23 mg tablet topiramate 25 mg tablet 25 mg PO BID 01/21/23 01/21/23 Results & Data (ED) Vital Signs Vital Signs - 24 hr 01/21/23 10:49 01/21/23 10:54 01/21/23 10:45 Temperature 37.7 C H Temperature Source Rectal Pulse Rate 114 H Pulse Rate from SpO2 Sensor Pulse Rhythm Respiratory Rate 20 Respiratory Effort / Characteristics Non-Labored Respiratory Depth Normal Blood Pressure 115/93 Blood Pressure Mean 100 Blood Pressure Position Pulse Oximetry 100 100 Oxygen Delivery Method Room Air Room Air Oxygen Flow Rate Sepsis Recent Fever Within 48 Hours No Sepsis New/Unexplained Change in Mental Status Yes Sepsis Action Taken by Nursing Physician Notified 01/21/23 11:12 01/21/23 11:12 01/21/23 10:58 Temperature Temperature Source Pulse Rate 104 H 105 H Pulse Rate from SpO2 Sensor 105 H Pulse Rhythm Respiratory Rate 13 Respiratory Effort / Characteristics Respiratory Depth Blood Pressure Blood Pressure Mean Blood Pressure Position Pulse Oximetry 100 100 Oxygen Delivery Method Nasal Cannula Oxygen Flow Rate 2 Sepsis Recent Fever Within 48 Hours Sepsis New/Unexplained Change in Mental Status Sepsis Action Taken by Nursing 01/21/23 11:00 01/21/23 11:00 01/21/23 11:10 Temperature Temperature Source Pulse Rate 109 H Pulse Rate from SpO2 Sensor 115 H Pulse Rhythm Respiratory Rate 13 Respiratory Effort / Characteristics Respiratory Depth Blood Pressure 118/84 111/71 Blood Pressure Mean 95 84 Blood Pressure Position Pulse Oximetry 100 Oxygen Delivery Method Oxygen Flow Rate Sepsis Recent Fever Within 48 Hours Sepsis New/Unexplained Change in Mental Status Sepsis Action Taken by Nursing 01/21/23 11:10 01/21/23 11:20 01/21/23 11:20 Temperature Temperature Source Pulse Rate 99 H 99 H Pulse Rate from SpO2 Sensor Pulse Rhythm Respiratory Rate 27 H 12 Respiratory Effort / Characteristics Respiratory Depth Blood Pressure 84/71 L Blood Pressure Mean 75 Blood Pressure Position Pulse Oximetry Oxygen Delivery Method Oxygen Flow Rate Sepsis Recent Fever Within 48 Hours Sepsis New/Unexplained Change in Mental Status Sepsis Action Taken by Nursing 01/21/23 11:30 01/21/23 11:30 01/21/23 11:40 Temperature Temperature Source Pulse Rate 94 H 101 H Pulse Rate from SpO2 Sensor 95 H Pulse Rhythm Respiratory Rate 22 13 Respiratory Effort / Characteristics Respiratory Depth Blood Pressure 99/61 L Blood Pressure Mean 73 Blood Pressure Position Pulse Oximetry 99 Oxygen Delivery Method Oxygen Flow Rate Sepsis Recent Fever Within 48 Hours Sepsis New/Unexplained Change in Mental Status Sepsis Action Taken by Nursing 01/21/23 11:40 01/21/23 11:50 01/21/23 11:50 Temperature Temperature Source Pulse Rate 109 H Pulse Rate from SpO2 Sensor 109 H Pulse Rhythm Respiratory Rate 19 Respiratory Effort / Characteristics Respiratory Depth Blood Pressure 104/62 114/74 Blood Pressure Mean 76 87 Blood Pressure Position Pulse Oximetry 94 Oxygen Delivery Method Oxygen Flow Rate Sepsis Recent Fever Within 48 Hours Sepsis New/Unexplained Change in Mental Status Sepsis Action Taken by Nursing 01/21/23 12:13 01/21/23 12:15 01/21/23 12:15 Temperature Temperature Source Pulse Rate 101 H 96 H Pulse Rate from SpO2 Sensor 99 H 99 H Pulse Rhythm Respiratory Rate 15 14 Respiratory Effort / Characteristics Respiratory Depth Blood Pressure 96/65 L Blood Pressure Mean 75 Blood Pressure Position Pulse Oximetry 100 99 Oxygen Delivery Method Oxygen Flow Rate Sepsis Recent Fever Within 48 Hours Sepsis New/Unexplained Change in Mental Status Sepsis Action Taken by Nursing 01/21/23 12:20 01/21/23 12:20 01/21/23 12:34 Temperature 36.8 C Temperature Source Oral Pulse Rate 107 H 97 H Pulse Rate from SpO2 Sensor 104 H Pulse Rhythm Regular Respiratory Rate 13 18 Respiratory Effort / Characteristics Respiratory Depth Blood Pressure 119/70 99/57 L Blood Pressure Mean 86 71 Blood Pressure Position Lying Pulse Oximetry 100 100 Oxygen Delivery Method Oxygen Flow Rate Sepsis Recent Fever Within 48 Hours Sepsis New/Unexplained Change in Mental Status Sepsis Action Taken by Nursing 01/21/23 12:52 01/21/23 13:07 Temperature 36.8 C 37.1 C Temperature Source Oral Oral Pulse Rate 104 H 89 Pulse Rate from SpO2 Sensor Pulse Rhythm Respiratory Rate 20 16 Respiratory Effort / Characteristics Respiratory Depth Blood Pressure 113/49 L 113/55 L Blood Pressure Mean 70 74 Blood Pressure Position Pulse Oximetry 99 100 Oxygen Delivery Method Oxygen Flow Rate Sepsis Recent Fever Within 48 Hours Sepsis New/Unexplained Change in Mental Status Sepsis Action Taken by Nursing Laboratory Data 01/21/23 10:55 01/21/23 10:55 Lab Results 01/21/23 01/21/23 01/21/23 Range/Units 10:55 10:55 10:55 WBC (4.8-10.8) K/ul RBC (4.20-5.40) M/uL Hgb (12.0-16.0) g/dl Hct (37.0-47.0) % MCV (80.0-100.0) fL MCH (25.0-34.0) pg MCHC (32.0-36.0) g/dL RDW Std Deviation (36.4-46.3) fL RDW Coeff of Quiana (11.5-14.5) % Plt Count (130-400) K/uL MPV (9.4-12.4) fL Immature Gran % (Auto) % Neut % (Auto) % Lymph % (Auto) % Sequoyah % (Auto) % Eos % (Auto) % Baso % (Auto) % Neut # (Auto) (1.40-6.50) K/uL Lymph # (Auto) (1.2-3.4) K/uL Sequoyah # (Auto) (0.11-0.59) K/uL Eos # (Auto) (0-0.50) K/uL Baso # (Auto) (0-0.2) K/uL Immature Gran # (Auto) (0.01-0.20) K/uL Absolute Nucleated RBC (0-0.12) K/uL Nucleated RBC % (auto) % Polychromasia Hypochromasia Ovalocytes PT 11.0 (9.0-12.0) Seconds INR 1.0 (0.9-1.1) APTT 21.0 (21.0-31.0) Seconds PTT Ratio 0.7 Sodium 138 (136-145) mmol/L Potassium 3.3 L (3.5-5.1) mmol/L Chloride 104 (98-107) mmol/L Carbon Dioxide 22 (21-32) mmol/L Anion Gap 12 H (3-11) BUN 8 (6-23) mg/dl Creatinine 0.84 (0.6-1.2) mg/dl Est Cr Clr Drug Dosing 106.1 ml/min Est GFR ( Amer) 106.6 ml/min Est GFR (Non-Af Amer) 92.0 ml/min BUN/Creatinine Ratio 9.5 L (10-20) Glucose 152 H (70-99(Fasting)) mg/dl Calcium 9.7 (8.6-10.3) mg/dl Magnesium 1.7 (1.7-2.4) mg/dl Total Bilirubin 0.3 (0.2-1.0) mg/dl AST 11 L (13-39) U/L ALT 8 (7-52) U/L Alkaline Phosphatase 58 (34-104) U/L Total Creatine Kinase 46 (26-192) U/L Troponin I High Sens 2.8 (0-14) pg/ml Total Protein 7.5 (6.0-8.3) gm/dl Albumin 4.5 (3.4-5.0) gm/dl Globulin 3.0 (2.5-4.0) gm/dl Albumin/Globulin Ratio 1.5 (0.9-2) Lipase (11-82) U/L TSH (0.300-4.500) uIu/ml HCG, Qual (Negative) SARS-CoV-2, RNA, NAAT (NEGATIVE) Blood Type O Positive Antibody Screen NEGATIVE Crossmatch See Detail 01/21/23 01/21/23 01/21/23 Range/Units 10:55 10:55 10:55 WBC 14.18 H (4.8-10.8) K/ul RBC 2.68 L (4.20-5.40) M/uL Hgb 5.7 L* (12.0-16.0) g/dl Hct 19.2 L* (37.0-47.0) % MCV 71.6 L (80.0-100.0) fL MCH 21.3 L (25.0-34.0) pg MCHC 29.7 L (32.0-36.0) g/dL RDW Std Deviation 48.5 H (36.4-46.3) fL RDW Coeff of Quiana 18.5 H (11.5-14.5) % Plt Count 446 H (130-400) K/uL MPV 10.8 (9.4-12.4) fL Immature Gran % (Auto) 0.8 % Neut % (Auto) 76.3 % Lymph % (Auto) 14.6 % Sequoyah % (Auto) 7.7 % Eos % (Auto) 0.3 % Baso % (Auto) 0.3 % Neut # (Auto) 10.83 H (1.40-6.50) K/uL Lymph # (Auto) 2.07 (1.2-3.4) K/uL Sequoyah # (Auto) 1.09 H (0.11-0.59) K/uL Eos # (Auto) 0.04 (0-0.50) K/uL Baso # (Auto) 0.04 (0-0.2) K/uL Immature Gran # (Auto) 0.11 (0.01-0.20) K/uL Absolute Nucleated RBC 0.03 (0-0.12) K/uL Nucleated RBC % (auto) 0.2 % Polychromasia 2+ Hypochromasia Present Ovalocytes 1+ PT (9.0-12.0) Seconds INR (0.9-1.1) APTT (21.0-31.0) Seconds PTT Ratio Sodium (136-145) mmol/L Potassium (3.5-5.1) mmol/L Chloride (98-107) mmol/L Carbon Dioxide (21-32) mmol/L Anion Gap (3-11) BUN (6-23) mg/dl Creatinine (0.6-1.2) mg/dl Est Cr Clr Drug Dosing ml/min Est GFR ( Amer) ml/min Est GFR (Non-Af Amer) ml/min BUN/Creatinine Ratio (10-20) Glucose (70-99(Fasting)) mg/dl Calcium (8.6-10.3) mg/dl Magnesium (1.7-2.4) mg/dl Total Bilirubin (0.2-1.0) mg/dl AST (13-39) U/L ALT (7-52) U/L Alkaline Phosphatase (34-104) U/L Total Creatine Kinase (26-192) U/L Troponin I High Sens (0-14) pg/ml Total Protein (6.0-8.3) gm/dl Albumin (3.4-5.0) gm/dl Globulin (2.5-4.0) gm/dl Albumin/Globulin Ratio (0.9-2) Lipase (11-82) U/L TSH 2.518 (0.300-4.500) uIu/ml HCG, Qual Negative (Negative) SARS-CoV-2, RNA, NAAT (NEGATIVE) Blood Type Antibody Screen Crossmatch 01/21/23 01/21/23 01/21/23 Range/Units 10:55 10:55 11:00 WBC (4.8-10.8) K/ul RBC (4.20-5.40) M/uL Hgb (12.0-16.0) g/dl Hct (37.0-47.0) % MCV (80.0-100.0) fL MCH (25.0-34.0) pg MCHC (32.0-36.0) g/dL RDW Std Deviation (36.4-46.3) fL RDW Coeff of Quiana (11.5-14.5) % Plt Count (130-400) K/uL MPV (9.4-12.4) fL Immature Gran % (Auto) % Neut % (Auto) % Lymph % (Auto) % Sequoyah % (Auto) % Eos % (Auto) % Baso % (Auto) % Neut # (Auto) (1.40-6.50) K/uL Lymph # (Auto) (1.2-3.4) K/uL Sequoyah # (Auto) (0.11-0.59) K/uL Eos # (Auto) (0-0.50) K/uL Baso # (Auto) (0-0.2) K/uL Immature Gran # (Auto) (0.01-0.20) K/uL Absolute Nucleated RBC (0-0.12) K/uL Nucleated RBC % (auto) % Polychromasia Hypochromasia Ovalocytes PT (9.0-12.0) Seconds INR (0.9-1.1) APTT Cancelled (21.0-31.0) Seconds PTT Ratio Cancelled Sodium (136-145) mmol/L Potassium (3.5-5.1) mmol/L Chloride (98-107) mmol/L Carbon Dioxide (21-32) mmol/L Anion Gap (3-11) BUN (6-23) mg/dl Creatinine (0.6-1.2) mg/dl Est Cr Clr Drug Dosing ml/min Est GFR ( Amer) ml/min Est GFR (Non-Af Amer) ml/min BUN/Creatinine Ratio (10-20) Glucose (70-99(Fasting)) mg/dl Calcium (8.6-10.3) mg/dl Magnesium (1.7-2.4) mg/dl Total Bilirubin (0.2-1.0) mg/dl AST (13-39) U/L ALT (7-52) U/L Alkaline Phosphatase (34-104) U/L Total Creatine Kinase (26-192) U/L Troponin I High Sens (0-14) pg/ml Total Protein (6.0-8.3) gm/dl Albumin (3.4-5.0) gm/dl Globulin (2.5-4.0) gm/dl Albumin/Globulin Ratio (0.9-2) Lipase 18 (11-82) U/L TSH (0.300-4.500) uIu/ml HCG, Qual (Negative) SARS-CoV-2, RNA, NAAT NEGATIVE (NEGATIVE) Blood Type Antibody Screen Crossmatch Administered Medications Potassium Chloride (K Jai / Wtr) 10 meq in 100 mls @ 100 mls/hr IV Q1H NARENDRA Stop: 01/21/23 18:46 Last Admin: 01/21/23 17:13 Dose: 100 mls/hr Documented By: KATHY Ondansetron HCl (Ondansetron Inj 2 Mg/Ml 2 Ml Vial) 4 mg IV Q4H PRN PRN Reason: Nausea Stop: 02/20/23 16:46 Last Admin: 01/21/23 16:57 Dose: 4 mg Documented By: KATHY Discontinued Medications Fentanyl Citrate (Fentanyl Citrate Pf 100 Mcg/2 Ml Vial) 50 mcg IV NOW STA Stop: 01/21/23 11:33 Last Admin: 01/21/23 11:37 Dose: 50 mcg Documented By: RAFITA Sodium Chloride (Nss) 500 mls @ 999 mls/hr IV .Q31M NARENDRA Stop: 01/21/23 11:30 Last Infusion: 01/21/23 11:47 Dose: 0 mls/hr Documented By: Admin: 01/21/23 11:13 Dose: 999 mls/hr Documented By: RAFITA Piperacillin Sod/Tazobactam Sod (Zosyn) 4.5 gm in 120 mls @ 240 mls/hr IV NOW ONE Stop: 01/21/23 12:27 Last Infusion: 01/21/23 13:41 Dose: 0 mls/hr Documented By: Admin: 01/21/23 12:32 Dose: 240 mls/hr Documented By: RAFITA Acetaminophen (Ofirmev) 1,000 mg in 100 mls @ 400 mls/hr IV NOW STA Stop: 01/21/23 12:12 Last Infusion: 01/21/23 13:41 Dose: 0 mls/hr Documented By: Admin: 01/21/23 12:16 Dose: 400 mls/hr Documented By: RAFITA Pantoprazole Sodium 80 mg/ (Dextrose) 120 mls @ 480 mls/hr IV ONE STA Stop: 01/21/23 13:23 Last Admin: 01/21/23 13:44 Dose: Not Given Documented By: PRISCILLA Ioversol (Optiray 320 100ml) 92 ml IV ONCE ONE Stop: 01/21/23 12:11 Last Admin: 01/21/23 12:00 Dose: 92 ml Documented By: TIANA Metoclopramide HCl (Metoclopramide Hcl Inj 5 Mg/Ml 2 Ml Vial) 10 mg IV Q6H NARENDRA Stop: 02/20/23 16:46 Last Admin: 01/21/23 16:57 Dose: 10 mg Documented By: KATHY Ondansetron HCl (Ondansetron Inj 2 Mg/Ml 2 Ml Vial) Confirm Administered Dose [address] Stop: 01/21/23 11:16 Last Admin: 01/21/23 11:17 Dose: 4 mg Documented By: RAFITA Ondansetron HCl (Ondansetron Inj 2 Mg/Ml 2 Ml Vial) 4 mg IV NOW STA Stop: 01/21/23 11:18 Last Admin: 01/21/23 11:18 Dose: Not Given Documented By: RAFITA Ondansetron HCl (Ondansetron Inj 2 Mg/Ml 2 Ml Vial) 4 mg IV NOW STA Stop: 01/21/23 12:17 Last Admin: 01/21/23 12:18 Dose: 4 mg Documented By: RAFITA Imaging Data Radiologist's Impression: Abdomen/Pelvis CT 01/21/23 10:57 CT OF THE ABDOMEN AND PELVIS WITH CONTRAST CLINICAL HISTORY: Syncope, post colonoscopy GI Bleed. COMPARISON STUDY: CT of the abdomen and pelvis April 12, 2021 TECHNIQUE: Following IV administration of 92 mL of Optiray, axial images of the abdomen and pelvis were obtained from the lung bases to the proximal femurs. Images were reviewed in the axial, sagittal, and coronal planes. IV contrast was administered without complication. Automated exposure control was utilized for the study. A dose lowering technique was utilized adhering to the principles of ALARA. FINDINGS: Lung bases are unremarkable. No pneumatosis, free air or portal venous gas is present. There is no biliary ductal dilatation status post cholecystectomy. Liver, spleen, adrenal glands and pancreas are unremarkable. Several bilateral renal calculi measure up to 5 mm. There are no ureteral calculi. There is no hydronephrosis. The caliber and wall thickness of small and large bowel are normal. There is no evidence for acute appendicitis. No fluid collection is present. There is no free fluid. A Hurtado balloon within the bladder is present. The ovaries are not enlarged. No acute fractures are identified within the visualized skeletal structures. Major vasculature is patent. IMPRESSION: 1. No acute process within the abdomen or pelvis. No pneumoperitoneum. 2. Bilateral nephrolithiasis. ACT 112: Negative or not required by law. Electronically signed by: Chase Teresa M.D. 01/21/2023 12:[address] 01/21/23 10:57 CT SCAN OF THE BRAIN WITHOUT IV CONTRAST CLINICAL HISTORY: Syncope COMPARISON STUDY: CT of the brain dated 07/08/2021. TECHNIQUE: Unenhanced axial CT scan of the brain is performed from the vertex to the skull base. A dose lowering technique was utilized adhering to the principles of ALARA. CT DOSE: 2021.60 mGy.cm FINDINGS: Brain parenchyma: The brain parenchyma is normal in appearance. There is no hemorrhage, mass effect, or evidence of acute territorial ischemia by CT criteria. Zapata-white matter differentiation is preserved. No extra-axial fluid collection is seen. Ventricles, sulci, cisterns: Normal in configuration. Intracranial vasculature: The visualized intracranial vasculature at the skull base is normal in appearance. Calvarium: Unremarkable. Sinuses and mastoids: The visualized paranasal sinuses are clear. The mastoid air cells are well pneumatized. Orbits: The bony orbits are grossly intact. IMPRESSION: No acute intracranial abnormality. ACT 112: Negative or not required by law. Electronically signed by: Brian Meyer M.D. 01/21/2023 12:15 PM Chest X-Ray 01/21/23 10:58 XR chest 1V portable HISTORY: 32 years-old Female syncope acute chest trauma with syncope COMPARISON: 04/25/2021 TECHNIQUE: AP view of the chest FINDINGS: Cardiomediastinal and hilar silhouettes are within normal limits. No pneumothorax, pleural effusion, airspace consolidation or pulmonary edema. Cholecystectomy. Bones appear grossly intact. Bilateral nipple jewelry. IMPRESSION: No acute process. ACT 112: Negative or not required by law. The above report was generated using voice recognition software. It may contain grammatical, syntax or spelling errors. Electronically signed by: Mac Welch M.D. 01/21/2023 11:18 AM Discharge Plan Visit Data Chief Complaint: Unresponsive Stated Complaint: UNRESPONSVE ED Provider: Alex Silverio Discharge Problem: Syncope and collapse, AMS (altered mental status), Acute GI bleeding Patient Disposition: Admitted As Inpatient Discharge Instructions Interventions: ED Discharge Assessment Last Done: 01/21/23 16:12
[2023-01-21] MEDS ORDERED: ONDANSETRON INJ 2 MG/ML 2 ML VIAL ONE (11:15)
[2023-01-21] MEDS ORDERED: ONDANSETRON INJ 2 MG/ML 2 ML VIAL IV STA ×2 (11:17→12:16)
--- NOTE | 2023-01-21 11:20 | XRay Report ---
XR chest 1V portable HISTORY: 32 years-old Female syncope acute chest trauma with syncope COMPARISON: 04/25/2021 TECHNIQUE: AP view of the chest FINDINGS: Cardiomediastinal and hilar silhouettes are within normal limits. No pneumothorax, pleural effusion, airspace consolidation or pulmonary edema. Cholecystectomy. Bones appear grossly intact. Bilateral ni pple jewelry. IMPRESSION: No acute process. ACT 112: Negative or not required by law. The above report was generated using voice recognition software. It may contain grammatical, syntax o r spelling errors. Electronically signed by: Mac Welch M.D. 01/21/2023 11:18 AM
[2023-01-21 11:25] LABS: Appearance Urine Clear (Clear); Bilirubin Urine Negative (Negative); Blood Urine Negative (Negative); Color Urine Yellow; Glucose Urine UA Negative (Negative); Ketones Urine Negative (Negative); Leukocyte Esterase Urine Negative (Negative); Nitrite Urine Negative (Negative); Protein Urine Negative (Negative); Specific Gravity Urine 1.008 (1.000-1.030); Urobilinogen Urine Negative (Negative)
[2023-01-21] MEDS ORDERED: fentaNYL citrate PF 100 MCG/2 ML VIAL IV STA (11:32)
[2023-01-21 11:38] LABS: Hematocrit (blood only) 19.2 % (37.0-47.0); Hemoglobin 5.7 g/dl (12.0-16.0); Mean Corpuscular Hemoglobin 21.3 pg (25.0-34.0); Mean Corpuscular Hgb Conc 29.7 g/dL (32.0-36.0); Mean Corpuscular Volume 71.6 fL (80.0-100.0); Mean Platelet Volume 10.8 fL (9.4-12.4); Nucleated RBC # (auto) 0.03 K/uL (0-0.12); Nucleated RBC % (auto) 0.2 %; Platelet Count 446 K/uL (130-400); RDW Coefficient of Variation 18.5 % (11.5-14.5); RDW Standard Deviation 48.5 fL (36.4-46.3); Red Blood Count 2.68 M/uL (4.20-5.40); White Blood Count 14.18 K/ul (4.8-10.8)
[2023-01-21 11:47] LABS: Albumin Globulin Ratio 1.5 (0.9-2); Albumin Level 4.5 gm/dl (3.4-5.0); BUN Creatinine Ratio 9.5 (10-20); Bilirubin,Total 0.3 mg/dl (0.2-1.0); Calcium 9.7 mg/dl (8.6-10.3); Creatinine Clr Calc Pharmacy 106.1 ml/min; Est GFR (African American) 106.6 ml/min; Magnesium 1.7 mg/dl (1.7-2.4); Potassium 3.3 mmol/L (3.5-5.1); Total Protein 7.5 gm/dl (6.0-8.3)
[2023-01-21 11:52] LABS: Basophils # (auto) 0.04 K/uL (0-0.2); Basophils % (auto) 0.3 %; Eosinophils # (auto) 0.04 K/uL (0-0.50); Eosinophils % (auto) 0.3 %; Hypochromasia Present; Immature Granulocytes # (auto) 0.11 K/uL (0.01-0.20); Immature Granulocytes % (auto) 0.8 %; Lymphocytes # (auto) 2.07 K/uL (1.2-3.4); Lymphocytes % (auto) 14.6 %; Monocytes # (auto) 1.09 K/uL (0.11-0.59); Monocytes % (auto) 7.7 %; Neutrophils # (auto) 10.83 K/uL (1.40-6.50); Neutrophils % (auto) 76.3 %; Ovalocytes 1+; Polychromasia 2+
[2023-01-21 11:53] LABS: Troponin I High Sensitivity 2.8 pg/ml (0-14)
[2023-01-21] MEDS ORDERED: PIPERACILLIN/TAZOBACTAM 4.5 GM/120 ML BAG IV ONE (11:58)
[2023-01-21] MEDS ORDERED: ACETAMINOPHEN 1,000 MG/100 ML VIAL IV STA (11:58)
[2023-01-21 12:02] LABS: Pregnancy Test, Serum Negative (Negative)
[2023-01-21] MEDS ORDERED: OPTIRAY 320 100ml IV ONE (12:10)
--- NOTE | 2023-01-21 12:17 | CT Scan Report ---
CT SCAN OF THE BRAIN WITHOUT IV CONTRAST CLINICAL HISTORY: Syncope COMPARISON STUDY: CT of the brain dated 07/08/2021. TECHNIQUE: Unenhanced axial CT scan of the brain is performed from the vertex to the skull base. A d ose lowering technique was utilized adhering to the principles of ALARA. CT DOSE: 2021.60 mGy.cm FINDINGS: Brain parenchyma: The brain parenchyma is normal in appearance. There is no hemorrhage, mass effect, or evidence of acute territorial ischemia by CT criteria. Zapata-white matter differentiation is preser leandro. No extra-axial fluid collection is seen. Ventricles, sulci, cisterns: Normal in configuration. Intracranial vasculature: The visualized intracranial vasculature at the skull base is normal in appe arance. Calvarium: Unremarkable. Sinuses and mastoids: The visualized paranasal sinuses are clear. The mastoid air cells are well pneu matized. Orbits: The bony orbits are grossly intact. IMPRESSION: No acute intracranial abnormality. ACT 112: Negative or not required by law. Electronically signed by: Brian Meyer M.D. 01/21/2023 12:15 PM
--- NOTE | 2023-01-21 12:29 | CT Scan Report ---
CT OF THE ABDOMEN AND PELVIS WITH CONTRAST CLINICAL HISTORY: Syncope, post colonoscopy GI Bleed. COMPARISON STUDY: CT of the abdomen and pelvis April 12, 2021 TECHNIQUE: Following IV administration of 92 mL of Optiray, axial images of the abdomen and pelvis we re obtained from the lung bases to the proximal femurs. Images were reviewed in the axial, sagittal, and coronal planes. IV contrast was administered without complication. Automated exposure control wa s utilized for the study. A dose lowering technique was utilized adhering to the principles of ALARA . FINDINGS: Lung bases are unremarkable. No pneumatosis, free air or portal venous gas is present. Ther e is no biliary ductal dilatation status post cholecystectomy. Liver, spleen, adrenal glands and panc reas are unremarkable. Several bilateral renal calculi measure up to 5 mm. There are no ureteral calc jacquie. There is no hydronephrosis. The caliber and wall thickness of small and large bowel are normal. There is no evidence for acute appendicitis. No fluid collection is present. There is no free fluid. A Hurtado balloon within the bladder is present. The ovaries are not enlarged. No acute fractures are i dentified within the visualized skeletal structures. Major vasculature is patent. IMPRESSION: 1. No acute process within the abdomen or pelvis. No pneumoperitoneum. 2. Bilateral nephrolithiasis. ACT 112: Negative or not required by law. Electronically signed by: Chase Teresa M.D. 01/21/2023 12:27 PM
--- NOTE | 2023-01-21 12:58 | History & Physical Report ---
Date of Service January 21, 2023 Assessment & Plan (1) Acute GI bleeding: Plan: Suspect lower GI bleed. Discussed with Dr De who performed EGD and colonoscopy and no need for IV pantoprazole as suspected just to be lower GI. Further investigations to be determined by gastroenterology. (2) Acute blood loss anemia: Plan: Hemoglobin 5.7. Transfuse 2 units packed RBCs. Repeat Hgb q6h Transfusion threshold < 7. (3) Symptomatic anemia: Plan: Longstanding history. Patient report iron deficiency and was planning on starting iron transfusions. RBC transfusion as above. (4) Nausea and vomiting: Plan: Unclear what is causing this for the last month and certainly warrants further investigation given essentially normal EGD/colonoscopy Progressively getting worse for the last month - given severity of symptoms will workup other causes with urine porphyrins (although ideally would also be repeated when not having blood transfusions and a GI bleed) Wellbutrin has a high likelihood side effect of nausea and vomiting and would at least hold for now although taking this does not correlate well with her symptoms. Follow up outpatient with gastroenterology for more functional studies - ?autonomic dysfunction with her inappropriate sinus tachycardia and suspect she may have the same with her GI tract Ondansetron 4mg q4h PRN [1st line] Metoclopramide 10mg q6h PRN [2nd line] (5) Abdominal pain: Plan: Suspect related to her nausea, vomiting and now hematochezia. No anatomical reason found on CT although was specifically an angiogram. Lactate and lipase normal. Acetaminophen 1st line, Dilaudid 2nd line. Plan VTE Prophyalxis - chemical contraindicated Diet - NPO, advance depending on repeat hemoglobins Disposition - admit to PCU Admission and Anticipated Discharge Date Admission Date: January 21, 2023 History of Present Illness Chief Complaint: GI bleed Primary Care Provider: Emerald Zuniga DO Delmi Rivera is 32 year old female presents to the ER due to a syncopal event. She underwent colonoscopy and upper endoscopy earlier today which went well although she doesn't remember the journey home. She remembers sitting on the toilet, feeling lightheaded with bright red blood in the toilet after feeling like she had diarrhea. She got up to go downstairs to lie down but cannot remember what happened next until she came to the hospital. She reports being found on the stairs by her boyfriend. The next thing she remembers is arrival at the hospital. She notes poor sleep for the last 2 days with abdominal pain, nausea and vomiting especially after having the colon prep. Abdominal pain today much worse than usual. Stabbing sensation. EGD/colonoscopy were ordered by her PCP to investigate weight loss, abdominal pains and intractable nausea/vomiting. She reports 35 lb weight loss over the last month. The abdominal pain started only with the vomiting and she feels the nausea/vomiting is the primary problem. Before a month ago she did not have this problem at all. Nothing she can remember started it off. Progressively becoming more severe and frequent. Best correlation is with time of day as it is most severe from 3-7am and is therefore also effecting her sleep. No hematemesis. She has not had one day where she has eaten something and kept it down. Occasionally has a reflex vomiting sensation whenever it hits the back of her throat but most of the time it is 20-60 minutes after eating. No dysphagia or odynophagia. Associated lips, finger and toes numb/tingling. Improves with having a hot bath - she feels it is never hot enough. No marijuana use except for a couple of days ago to see if it would help - it did not. No personal or family history of migraines. Wellbutrin started last summer for depression - she current feels her depression is well controlled. Not able to take this for the last couple of days. Topamax initially started for weight loss but when she tried to come off she would get headaches therefore kept this going - stopped about a week ago to see if it would help the nausea. Takes ibuprofen for pain but not in the last couple of days and not regularly. Adderall stopped about a week ago due to nausea. Allergies Allergy/AdvReac Type Severity Reaction Status Date / Time sertraline Allergy Mild Unknown Verified 01/21/23 14:05 Home Medications Medication Instructions Recorded Confirmed Type bupropion HCl 300 mg 24 hr tablet, 300 mg PO DAILY 01/21/23 01/21/23 History extended release dextroamphetamine-amphetamine 30 30 mg PO BID 01/21/23 01/21/23 History mg tablet topiramate 25 mg tablet 25 mg PO BID 01/21/23 01/21/23 History Past Med/Surg History Medical History ADHD Anemia hx Depression Endometriosis History of placenta abruption 2017 Obesity (BMI 30.0-34.9) Surgical History History of 09/06/2016 History of cholecystectomy History of endoscopic sinus surgery with sinus stent placement at [facility] [place] ~2014 History of open reduction and internal fixation (ORIF) procedure ORIF right hand S/P hardware removal right hand S/P left knee arthroscopy S/P NANCY-BSO Family History Other No family history of adverse response to anesthesia No significant family history Denies family history of Bleeding disorder Social History Smoking Status: Never smoker Second Hand Exposure: No; Do You Dip or Chew Tobacco: No; Hx Alcohol Use: Yes Hx Substance Use: No Preferred Language: Faroese Communication Ability: Effective Merchandise Coordinator Required: No Beliefs That Will Affect Care: None Current Living Situation: Family Other Information That Helps Us Care for You: No Feels Safe at Home: Yes Safety Concerns: Feels Safe At This Time Assistive Devices: None Review of Systems Review of Systems: All systems reviewed & are unremarkable except as noted in HPI & below Physical Exam Constitutional: WD/WN, vitals as above (pale appearing) Eyes: + conjunctival abnormality (pallor); normal pupil size ENMT: external ear and nose normal, oropharynx normal Neck: trachea midline, no thyromegaly Respiratory: normal respiratory effort, lungs clear to auscultation Cardiovascular: RRR, no murmur, no edema Gastrointestinal (Abdomen): Inspection/Auscultation: abdomen normal to inspection; abdomen not distended Percussion/Palpation: + abdomen tender (generalized, mild) and abdomen soft; no guarding and abdomen not rigid Musculoskeletal: no cyanosis or clubbing, extremities motor strength 5/5 Skin: + pallor Neurologic: moves all extremities and awake; not confused Psychiatric: A+Ox3, euthymic affect Genitourinary: no CVA tenderness Results & Data Results & Data Vital Signs (Past 12 Hours) Vital Signs Temp Pulse Resp BP Pulse Ox O2 Del Method O2 Flow Rate 01/21/23 12:52 36.8 C 104 H 20 113/49 L 99 01/21/23 12:34 36.8 C 97 H 18 99/57 L 100 01/21/23 12:20 119/70 01/21/23 12:20 107 H 13 100 01/21/23 12:15 96 H 14 99 01/21/23 12:15 96/65 L 01/21/23 12:13 101 H 15 100 01/21/23 11:50 114/74 01/21/23 11:50 109 H 19 94 01/21/23 11:40 104/62 01/21/23 11:40 101 H 13 01/21/23 11:30 94 H 22 99 01/21/23 11:30 99/61 L 01/21/23 11:20 99 H 12 01/21/23 11:20 84/71 L 01/21/23 11:10 99 H 27 H 01/21/23 11:10 111/71 01/21/23 11:00 109 H 13 100 01/21/23 11:00 118/84 01/21/23 10:58 105 H 13 100 01/21/23 11:12 104 H 01/21/23 11:12 100 Nasal Cannula 2 01/21/23 10:45 37.7 C H 01/21/23 10:54 100 Room Air 01/21/23 10:49 114 H 20 115/93 100 Room Air Laboratory Results Abnormal lab results 01/21/23 01/21/23 01/21/23 Range/Units 10:55 10:55 10:55 WBC 14.18 H (4.8-10.8) K/ul RBC 2.68 L (4.20-5.40) M/uL Hgb 5.7 L* (12.0-16.0) g/dl Hct 19.2 L* (37.0-47.0) % MCV 71.6 L (80.0-100.0) fL MCH 21.3 L (25.0-34.0) pg MCHC 29.7 L (32.0-36.0) g/dL RDW Std Deviation 48.5 H (36.4-46.3) fL RDW Coeff of Quiana 18.5 H (11.5-14.5) % Plt Count 446 H (130-400) K/uL Neut # (Auto) 10.83 H (1.40-6.50) K/uL [place] # (Auto) 1.09 H (0.11-0.59) K/uL Potassium 3.3 L (3.5-5.1) mmol/L Anion Gap 12 H (3-11) BUN/Creatinine Ratio 9.5 L (10-20) Glucose 152 H (70-99(Fasting)) mg/dl AST 11 L (13-39) U/L Crossmatch See Detail Diagnostic Findings XR chest 1V portable HISTORY: 32 years-old Female syncope acute chest trauma with syncope COMPARISON: 04/25/2021 TECHNIQUE: AP view of the chest FINDINGS: Cardiomediastinal and hilar silhouettes are within normal limits. No pneumothorax, pleural effusion, airspace consolidation or pulmonary edema. C holecystectomy. Bones appear grossly intact. Bilateral nipple jewelry. IMPRESSION: No acute process. CT SCAN OF THE BRAIN WITHOUT IV CONTRAST CLINICAL HISTORY: Syncope COMPARISON STUDY: CT of the brain dated 07/08/2021. TECHNIQUE: Unenhanced axial CT scan of the brain is performed from the vertex to the skull base. A dose lowering technique was utilized adhering to the p rinciples of ALARA. CT DOSE: 2021.60 mGy.cm FINDINGS: Brain parenchyma: The brain parenchyma is normal in appearance. There is no hemorrhage, mass effect, or evidence of acute territorial ischemia by CT criteria. Zapata-white matter differentiation is preserved. No extra-axial fluid collection is seen. Ventricles, sulci, cisterns: Normal in configuration. Intracranial vasculature: The visualized intracranial vasculature at the skull base is normal in appearance. Calvarium: Unremarkable. Sinuses and mastoids: The visualized paranasal sinuses are clear. The mastoid air cells are well pneumatized. Orbits: The bony orbits are grossly intact. IMPRESSION: No acute intracranial abnormality. CT OF THE ABDOMEN AND PELVIS WITH CONTRAST CLINICAL HISTORY: Syncope, post colonoscopy GI Bleed. COMPARISON STUDY: CT of the abdomen and pelvis April 12, 2021 TECHNIQUE: Following IV administration of 92 mL of Optiray, axial images of the abdomen and pelvis were obtained from the lung bases to the proximal femurs. Images were reviewed in the axial, sagittal, and coronal planes. IV contrast was administered without complication. Automated exposure control was utilized for the study. A dose lowering technique was utilized adhering to the principles of ALARA. FINDINGS: Lung bases are unremarkable. No pneumatosis, free air or portal venous gas is present. There is no biliary ductal dilatation status post cholecystectomy. Liver, spleen, adrenal glands and pancreas are unremarkable. Several bilateral renal calculi measure up to 5 mm. There are no ureteral calculi. There is no hydronephrosis. The caliber and wall thickness of small and large bowel are normal. There is no evidence for acute appendicitis. No fluid collection is present. There is no free fluid. A Hurtado balloon within the bladder is present. The ovaries are not enlarged. No acute fractures are identified within the visualized skeletal structures. Major vasculature is patent. IMPRESSION: 1. No acute process within the abdomen or pelvis. No pneumoperitoneum. 2. Bilateral nephrolithiasis. Medications Administered ER Medications Given: 2 units packed RBCs Ondansetron 4mg IV Fentanyl 50 mcg IV Zosyn 4.5g IV Acetaminophen 1000mg IV Ondansetron 4mg IV ECG Rate (beats per minute): 143 Rhythm: sinus tachycardia Findings: + nonspecific-ST abn (Inferior) Comparison ECG Date: from (Jul 08, 2021) Change: the following changes noted (non specific T wave abnormality no longer evident in anterior leads) Code Status & VTE Plan Code Status Full VTE Prophylaxis Plan VTE Prophylaxis will be ordered: No PG Care Time/CCT Total # of Minutes Spent Total Time Spent with Patient: Total time spent is greater than 50% in coordination of care (as documented) at patient's floor/unit and/or counseling patient: Coding Level of Care Code 80936 INT INP/OBS CARE 3/75MIN Diagnoses Acute GI bleeding K92.2 Acute blood loss anemia D62 Symptomatic anemia D64.9 Nausea and vomiting R11.2 Abdominal pain R10.9
[2023-01-21] MEDS ORDERED: PANTOprazole 80 MG in DEXTROSE 5% 100 ML IV STA (13:09)
[2023-01-21 13:45] LABS: Partial Thromboplastin Ratio 0.7
--- NOTE | 2023-01-21 16:16 | Gastroenterology Progress Note ---
Date of Service January 21, 2023 Assessment & Plan (1) Acute GI bleeding: Plan: Patient known to me from earlier EGD and colonoscopy at [facility] for anemia. EGD was normal, duodenal biopsies done. Colonoscopy normal. Went home and had a significant GI bleed. CT was unremarkable. Continuing to bleed so will order tagged RBC scan Results & Data Vital Signs (Past 12 Hours) Vital Signs Temp Pulse Resp BP Pulse Ox O2 Del Method O2 Flow Rate 01/21/23 16:12 75 18 100 01/21/23 16:00 36.9 C 75 20 117/80 99 01/21/23 15:45 37.0 C 72 18 113/70 99 01/21/23 15:27 37.1 C 72 20 109/78 96 01/21/23 15:10 37.0 C 71 18 97 01/21/23 14:58 81 01/21/23 14:54 36.9 C 87 12 102/66 97 01/21/23 14:35 36.9 C 90 18 95/52 L 99 01/21/23 13:37 37 C 85 16 117/66 96 01/21/23 13:07 37.1 C 89 16 113/55 L 100 01/21/23 12:52 36.8 C 104 H 20 113/49 L 99 01/21/23 12:34 36.8 C 97 H 18 99/57 L 100 01/21/23 12:20 119/70 01/21/23 12:20 107 H 13 100 01/21/23 12:15 96 H 14 99 01/21/23 12:15 96/65 L 01/21/23 12:13 101 H 15 100 01/21/23 11:50 114/74 01/21/23 11:50 109 H 19 94 01/21/23 11:40 104/62 01/21/23 11:40 101 H 13 01/21/23 11:30 94 H 22 99 01/21/23 11:30 99/61 L 01/21/23 11:20 99 H 12 01/21/23 11:20 84/71 L 01/21/23 11:10 99 H 27 H 01/21/23 11:10 111/71 01/21/23 11:00 109 H 13 100 01/21/23 11:00 118/84 01/21/23 10:58 105 H 13 100 01/21/23 11:12 104 H 01/21/23 11:12 100 Nasal Cannula 2 01/21/23 10:45 37.7 C H 01/21/23 10:54 100 Room Air 01/21/23 10:49 114 H 20 115/93 100 Room Air
[2023-01-21] MEDS ORDERED: METOCLOPRAMIDE HCL INJ 5 MG/ML 2 ML VIAL IV SCH (16:47)
[2023-01-21] MEDS: ONDANSETRON INJ 2 MG/ML 2 ML VIAL IV PRN (16:57)
[2023-01-21] MEDS: POTASSIUM CHLORIDE / WTR 10 MEQ/100 ML PLCT IV SCH ×2 (17:13→18:23)
[2023-01-21] MEDS ORDERED: METOCLOPRAMIDE HCL INJ 5 MG/ML 2 ML VIAL IV PRN (17:15)
[2023-01-21 18:43] LABS: Hemoglobin 7.6 g/dl (12.0-16.0)
[2023-01-21] MEDS ORDERED: ACETAMINOPHEN 1,000 MG/100 ML VIAL IV PRN (19:37)
[2023-01-21] MEDS ORDERED: HYDROmorphone INJ 0.5 MG/0.5 ML SYR IV PRN (19:38)
[2023-01-21] MEDS ORDERED: MELATONIN 3 MG TAB PO STA (22:49)
[2023-01-22 01:57] LABS: Hematocrit (blood only) 21.9 % (37.0-47.0); Hemoglobin 6.7 g/dl (12.0-16.0)
[2023-01-22] MEDS ORDERED: SODIUM CHLORIDE 0.9% 250 ML IV PRN (02:00)
--- NOTE | 2023-01-22 02:03 | Communication Note ---
Date of Service: January 22, 2023 Midnight Hgb <7. Will transfuse additional unit. Recheck am labs. Resident Activity Tracking Resident Involvement: Resident Care Provided Care Provided: Adult Hospital Medicine
[2023-01-22 06:09] LABS: Basophils # (auto) 0.04 K/uL (0-0.2); Basophils % (auto) 0.6 %; Eosinophils # (auto) 0.06 K/uL (0-0.50); Eosinophils % (auto) 0.9 %; Hematocrit (blood only) 25.1 % (37.0-47.0); Immature Granulocytes # (auto) 0.04 K/uL (0.01-0.20); Immature Granulocytes % (auto) 0.6 %; Lymphocytes # (auto) 2.16 K/uL (1.2-3.4); Lymphocytes % (auto) 31.4 %; Mean Corpuscular Hemoglobin 24.8 pg (25.0-34.0); Mean Corpuscular Hgb Conc 31.9 g/dL (32.0-36.0); Mean Platelet Volume 10.4 fL (9.4-12.4); Monocytes # (auto) 0.88 K/uL (0.11-0.59); Monocytes % (auto) 12.8 %; Neutrophils # (auto) 3.69 K/uL (1.40-6.50); Neutrophils % (auto) 53.7 %; Platelet Count 265 K/uL (130-400); RDW Coefficient of Variation 19.2 % (11.5-14.5); RDW Standard Deviation 54.7 fL (36.4-46.3); Red Blood Count 3.22 M/uL (4.20-5.40); White Blood Count 6.87 K/ul (4.8-10.8)
[2023-01-22 06:30] LABS: Albumin Globulin Ratio 1.5 (0.9-2); Albumin Level 3.8 gm/dl (3.4-5.0); BUN Creatinine Ratio 9.2 (10-20); Bilirubin,Total 0.8 mg/dl (0.2-1.0); Calcium 9.1 mg/dl (8.6-10.3); Est GFR (African American) 120.3 ml/min; Est GFR (Non-African American) 103.8 ml/min; Globulin 2.5 gm/dl (2.5-4.0); Potassium 3.9 mmol/L (3.5-5.1); Total Protein 6.3 gm/dl (6.0-8.3)
--- NOTE | 2023-01-22 07:04 | Hospitalist Progress Note ---
Date of Service January 22, 2023 Assessment & Plan (1) Abdominal pain: (2) Nausea and vomiting: (3) Acute GI bleeding: (4) Symptomatic anemia: Plan Delmi Rivera is a 32 year-old female who presented to the ED for due to a syncopal event following colonoscopy and upper endoscopy earlier in the day. She has a past medical history of iron deficiency, anemia, ADHD, depression. Acute GI bleeding -Suspect lower GI bleed -CT Abdomen/Pelvis: no acute process within the abdomen or pelvis, no pneumoperitoneum -Patient was discussed with Dr De who performed EGD and colonoscopy and no need for IV pantoprazole as suspected to be lower GI -Tagged RBC scan without acute bleed -Plan for outpatient capsule endoscopy -Hemoglobin 5.7 in ED, has received 3 units PRBCs total since admission -Repeat Hgb q6h, a.m. Hgb today 8.0 and 7.9. Repeat Hgb la -Transfusion threshold < 7 Symptomatic anemia -Longstanding history, underlying etiology unknown -Patient reports iron deficiency and was planning on starting iron transfusions. RBC transfusion as above. Nausea and vomiting, Abdominal Pain -Very little PO intake for weeks, has lost 30 pounds in the past month -Unclear what is causing this for the last month and certainly warrants further investigation given essentially normal EGD/colonoscopy -Progressively getting worse for the last month, does note sharp upper abdominal pain prior to nausea/vomiting and exam suspicious of trigger points -Will inject trigger points tomorrow, discussed that functional GI issues also possibility if trigger points not improving symptoms -IV fluids ordered Ondansetron 4mg q4h PRN [1st line] Metoclopramide 10mg q6h PRN [2nd line] VTE Prophylaxis: chemical contraindicated Diet: clear liquids Disposition: PCU Code Status: Full Code Admission and Anticipated Discharge Date Admission Date: January 21, 2023 Supervising Physician Co-Signing Physician Notes I personally examined the patient and verified all loco points of history and exam, discussed case, and agree with decision making with Dr Anders bleeding seems to be slowingstill having some clock bowel movements, but seems to be improving. Weak lightheaded paresthesias and tachycardia have all improved dramatically. Notes that for no clear reason she started about a month ago with intractable nausea. She has a lot of vomitingbut on clarification it is generally after she tries to eat or drink things. Everything comes right back up, does not really have much spontaneous vomiting otherwise. Does have a lot of left upper abdominal pain. No clear inciting factorlittle more than a month ago she was doing great was active was physically active was eating and drinking fine had no nausea etc. Vomitus is generally just watery. She does have some diarrheait seems more whenever she tries to eat things, but also may be 5-6 times a day fairly watery. Prior to yesterday no bleeding. Has lost about 35 pounds over the last month. Vitals noted, in general she is awake and alert pleasant no distress. HEENT normocephalic atraumatic mucous membranes moist. Breathing unlabored no accessory muscle use good effort. Skin shows no rashes no pallor or icterus. Neuro without focal deficits. Abdomen is soft may be mildly distended no real tenderness outside of epigastric and left upper abdomenwhere she also definitely has some discrete trigger points that are palpable. Acute blood loss anemia with GI bleedingseems to be resolving. Nuc med scan negative. Follow into tomorrow. Capsule endoscopy as an outpatient, although if bleeding recurs, probably would need to transfer for double-balloon. Intractable nausea vomiting and weight lossdoes not show pathology on EGD, colonoscopy, CT abdomen pelvisdoes have trigger pointsthis could certainly fit. Functional disorders/functional dyspepsia/motility disorder is quite possible as well. Has a history of endometriosisbut notes that it does not really bother her outside of around the time of her mensesgiven that she still notices it, I doubt endometrial deposits are at play. After discussion with GI, given that she has no obstructive pathology, it is probably not related to the cause of the bleed, and given that she had the nausea vomiting and profound weight loss for about a month prior to all this with no bleeding, I suspect GI is correct in this regard. Discussed with patient and will be a clinical diagnosis, as there is not really going to be a test to prove one of our differentialsbut rather we will need to initially do therapeutic trial. Given that trigger points are palpable, and given that that might be the fastest response (albeit 1 that can sometimes take a few weeks) we will give trial to abdominal wall trigger point injections tomorrow. If it seems to be helpful over timecan certainly also utilize Voltaren gel during the day and lidocaine patches at night, and reinject if needed. The tricky thing will be that it may take a week or 2 for benefit to be seen. We will definitely need to have her plugged in close in the office, with the hospital able to be utilized as a safety net if she is getting behind hydration ng. Would next then probably move to functional dyspepsia type treatments (such as cyproheptadine) if trigger point injections do not help over time Subjective Patient was seen and examined at bedside. Patient states she is feeling better today after receiving more blood overnight. Continues to have small amount of clots per rectum but was able to ambulate around the halls without dizziness. Continues to have nausea (1 episode of vomiting this morning) and has only been sipping some water and tea. Describes that she has lost significant weight in the past 30 days as she cannot keep down any foods or liquids. Has had elevated heart rate with any activity, walking upstairs, etc. Has been bed bound largely for the past month. Denies chest pain or urinary symptoms. Review of Systems Review of Systems: As per above Physical Exam Constitutional: comfortable; no acute distress Eyes: anicteric sclerae ENMT: External ears and nose normal. Moist mucous membranes Respiratory: normal respiratory effort, lungs clear to auscultation Cardiovascular: RRR, no murmur, no edema Gastrointestinal (Abdomen): Tender to palpation, abdomen soft and nondistended. Tender points focused at upper abdomen/below ribs. Skin: no rashes, warm and dry delayed cap refill Psychiatric: A+Ox3, euthymic affect Results & Data Results & Data Vital Signs (Past 12 Hours) Vital Signs Temp Pulse Pulse Resp BP BP Pulse Ox 01/22/23 04:27 36.9 C 61 14 94/58 L 99 01/22/23 04:14 36.8 C 71 14 92/59 L 98 01/22/23 04:08 36.8 C 71 14 89/57 L 98 01/22/23 03:57 36.8 C 69 14 97/63 L 98 01/22/23 03:46 36.8 C 71 14 94/67 L 98 01/22/23 03:36 36.8 C 71 14 97/66 L 98 01/22/23 03:27 36.7 C 81 14 93/65 L 98 01/22/23 03:13 36.7 C 82 16 116/69 97 08/01/23 23:24 36.7 C 70 14 99/59 L 99 01/21/23 23:01 55 L 01/21/23 19:34 36.7 C 59 L 16 91/57 L 99 O2 Del Method 01/22/23 04:27 01/22/23 04:14 01/22/23 04:08 01/22/23 03:57 01/22/23 03:46 01/22/23 03:36 01/22/23 03:27 01/22/23 03:13 01/21/23 23:24 Room Air 01/21/23 23:01 01/21/23 19:34 Room Air Diagnostic Findings Abdomen/Pelvis CT 01/21/23 10:57 CT OF THE ABDOMEN AND PELVIS WITH CONTRAST CLINICAL HISTORY: Syncope, post colonoscopy GI Bleed. COMPARISON STUDY: CT of the abdomen and pelvis April 12, 2021 TECHNIQUE: Following IV administration of 92 mL of Optiray, axial images of the abdomen and pelvis were obtained from the lung bases to the proximal femurs. Images were reviewed in the axial, sagittal, and coronal planes. IV contrast was administered without complication. Automated exposure control was utilized for the study. A dose lowering technique was utilized adhering to the principles of ALARA. FINDINGS: Lung bases are unremarkable. No pneumatosis, free air or portal venous gas is present. There is no biliary ductal dilatation status post cholecystectomy. Liver, spleen, adrenal glands and pancreas are unremarkable. Several bilateral renal calculi measure up to 5 mm. There are no ureteral calculi. There is no hydronephrosis. The caliber and wall thickness of small and large bowel are normal. There is no evidence for acute appendicitis. No fluid collection is present. There is no free fluid. A Hurtado balloon within the bladder is present. The ovaries are not enlarged. No acute fractures are identified within the visualized skeletal structures. Major vasculature is patent. IMPRESSION: 1. No acute process within the abdomen or pelvis. No pneumoperitoneum. 2. Bilateral nephrolithiasis. ACT 112: Negative or not required by law. Electronically signed by: Chase Teresa M.D. 01/21/2023 12:[address] 01/21/23 10:57 CT SCAN OF THE BRAIN WITHOUT IV CONTRAST CLINICAL HISTORY: Syncope COMPARISON STUDY: CT of the brain dated 07/08/2021. TECHNIQUE: Unenhanced axial CT scan of the brain is performed from the vertex to the skull base. A dose lowering technique was utilized adhering to the principles of ALARA. CT DOSE: 2021.60 mGy.cm FINDINGS: Brain parenchyma: The brain parenchyma is normal in appearance. There is no hemorrhage, mass effect, or evidence of acute territorial ischemia by CT criteria. [place]-white matter differentiation is preserved. No extra-axial fluid collection is seen. Ventricles, sulci, cisterns: Normal in configuration. Intracranial vasculature: The visualized intracranial vasculature at the skull base is normal in appearance. Calvarium: Unremarkable. Sinuses and mastoids: The visualized paranasal sinuses are clear. The mastoid air cells are well pneumatized. Orbits: The bony orbits are grossly intact. IMPRESSION: No acute intracranial abnormality. ACT 112: Negative or not required by law. Electronically signed by: Brian Meyer M.D. 01/21/2023 12:15 PM Chest X-Ray 01/21/23 10:58 XR chest 1V portable HISTORY: 32 years-old Female syncope acute chest trauma with syncope COMPARISON: 04/25/2021 TECHNIQUE: AP view of the chest FINDINGS: Cardiomediastinal and hilar silhouettes are within normal limits. No pneumothorax, pleural effusion, airspace consolidation or pulmonary edema. Cholecystectomy. Bones appear grossly intact. Bilateral nipple jewelry. IMPRESSION: No acute process. ACT 112: Negative or not required by law. The above report was generated using voice recognition software. It may contain grammatical, syntax or spelling errors. Electronically signed by: Mac Welch M.D. 01/21/2023 11:18 AM Resident Activity Tracking Resident Involvement: Resident Care Provided Care Provided: Adult Hospital Medicine
[2023-01-22] MEDS ORDERED: SODIUM CHLORIDE 0.9% 500 ML IV SCH (08:45)
--- NOTE | 2023-01-22 09:05 | Gastroenterology Progress Note ---
Supervising Physician's Note Case discussed with Hyacinth Browning NP, Chart reviewed, discussed with patient, family and primary team No bleeding now except for what sounds like rectal/hemorrhoidal bleeding. NM bleeding scan negative. Would like to get Meckels scan but need to wait 48 hours. May need capsule endoscopy or double balloon enteroscopy at some point. I don't want to attribute this to a massive hemorrhoidal bleed but I guess that is possible. Would observe at least over night to make sure no recurrent bleeding. I have spent a total of 30 minutes discrete time on this case today Rosalia De Jr, MD, FAC Date of Service January 22, 2023 Assessment & Plan (1) Acute GI bleeding: Plan: Acute GI bleed: Patient had large amount of rectal bleeding following colonoscopy and EGD 01/21/2023. No significant explanation for bleeding postp rocedure as minimal biopsies were obtained. Dr. De ordered a stat NM GI bleeding study to be performed today, I spoke to nuclear medicine who reports the patient is to be scanned this morning. Will review results and make additional recommendation. Continue supportive care measures and prn transfusion. Case reviewed with Dr. De. Please refer to supervising physician addendum for further recommendations. I have spent 20 minutes of discrete time performing the activities of this visit which include but are not limited to review of the medical record, obtaining a history, physical exam, and entering information in the electronic record. Admission and Anticipated Discharge Date Admission Date: January 21, 2023 Subjective Patient s/p outpatient EGD and colonoscopy due to iron deficiency anemia as outlined below- 01/21/2023: Colonoscopy notes are reviewed performed due to history of iron deficiency anemia demonstrated rectum, rectosigmoid colon, sigmoid colon, descending colon, splenic flexure, transverse colon, hepatic flexure, ascending colon and cecum appeared normal. There were no specimens collected. Recommend repeat colonoscopy at age 45 for screening purposes. 01/21/2023: EGD notes are reviewed performed due to history of iron deficiency anemia demonstrated normal esophagus, normal stomach, normal examined duodenum with biopsies obtained in the duodenum for evaluation of celiac disease. She reports that after her procedure, she was not feeling terribly well and went home noting large amount of bloody output in the bathtub. She states that she had no recollection of getting to the hospital. Today she reports she is feeling better. She had a total of 3 packed red blood cells units transfused. She is states she has passed 2 blood clots through the night. She notes some abdominal bloating and nausea this morning. Has had resolution of stabbing abdominal pain. She is hopeful that she can get her catheter out this morning and gets more nausea medicine. Review of Systems Review of Systems: All systems reviewed & are unremarkable except as noted in Subjective Physical Exam Gastrointestinal (Abdomen): Inspection/Auscultation: abdomen normal to inspection and normal bowel sounds; abdomen not distended Percussion/Palpation: + abdomen tender and abdomen soft; no guarding and abdomen not rigid Results & Data Vital Signs (Past 12 Hours) Vital Signs Temp Pulse Pulse Resp BP BP Pulse Ox 01/22/23 07:54 36.7 C 55 L 18 105/73 99 01/22/23 07:29 69 01/22/23 04:27 36.9 C 61 14 94/58 L 99 01/22/23 04:14 36.8 C 71 14 92/59 L 98 01/22/23 04:08 36.8 C 71 14 89/57 L 98 01/22/23 03:57 36.8 C 69 14 97/63 L 98 01/22/23 03:46 36.8 C 71 14 94/67 L 98 01/22/23 03:36 36.8 C 71 14 97/66 L 98 01/22/23 03:27 36.7 C 81 14 93/65 L 98 01/22/23 03:13 36.7 C 82 16 116/69 97 01/21/23 23:24 36.7 C 70 14 99/59 L 99 01/21/23 23:01 55 L O2 Del Method 01/22/23 07:54 Room Air 01/22/23 07:29 01/22/23 04:27 01/22/23 04:14 01/22/23 04:08 01/22/23 03:57 01/22/23 03:46 01/22/23 03:36 01/22/23 03:27 01/22/23 03:13 01/21/23 23:24 Room Air 01/21/23 23:01 Laboratory Results Laboratory Results - last 24 hr 01/21/23 01/21/23 01/21/23 10:55 10:55 10:55 WBC RBC Hgb Hct MCV MCH MCHC RDW Std Deviation RDW Coeff of Quiana Plt Count MPV Immature Gran % (Auto) Neut % (Auto) Lymph % (Auto) [place] % (Auto) Eos % (Auto) Baso % (Auto) Neut # (Auto) Lymph # (Auto) [place] # (Auto) Eos # (Auto) Baso # (Auto) Immature Gran # (Auto) Absolute Nucleated RBC Nucleated RBC % (auto) Polychromasia Hypochromasia Ovalocytes PT 11.0 INR 1.0 APTT 21.0 PTT Ratio 0.7 Sodium 138 Potassium 3.3 L Chloride 104 Carbon Dioxide 22 Anion Gap 12 H BUN 8 Creatinine 0.84 Est Cr Clr Drug Dosing 106.1 Est GFR ( Amer) 106.6 Est GFR (Non-Af Amer) 92.0 BUN/Creatinine Ratio 9.5 L Glucose 152 H Calcium 9.7 Magnesium 1.7 Total Bilirubin 0.3 AST 11 L ALT 8 Alkaline Phosphatase 58 Total Creatine Kinase 46 Troponin I High Sens 2.8 Total Protein 7.5 Albumin 4.5 Globulin 3.0 Albumin/Globulin Ratio 1.5 Lipase TSH HCG, Qual Urine Color Urine Appearance Urine pH Ur Specific [place] Urine Protein Urine Glucose (UA) Urine Ketones Urine Blood Urine Nitrite Urine Bilirubin Urine Urobilinogen Ur Leukocyte Esterase SARS-CoV-2, RNA, NAAT Blood Type O Positive Antibody Screen NEGATIVE Crossmatch See Detail 01/21/23 01/21/23 01/21/23 10:55 10:55 10:55 WBC 14.18 H RBC 2.68 L Hgb 5.7 L* Hct 19.2 L* MCV 71.6 L MCH 21.3 L MCHC 29.7 L RDW Std Deviation 48.5 H RDW Coeff of Quiana 18.5 H Plt Count 446 H MPV 10.8 Immature Gran % (Auto) 0.8 Neut % (Auto) 76.3 Lymph % (Auto) 14.6 [place] % (Auto) 7.7 Eos % (Auto) 0.3 Baso % (Auto) 0.3 Neut # (Auto) 10.83 H Lymph # (Auto) 2.07 [place] # (Auto) 1.09 H Eos # (Auto) 0.04 Baso # (Auto) 0.04 Immature Gran # (Auto) 0.11 Absolute Nucleated RBC 0.03 Nucleated RBC % (auto) 0.2 Polychromasia 2+ Hypochromasia Present Ovalocytes 1+ PT INR APTT PTT Ratio Sodium Potassium Chloride Carbon Dioxide Anion Gap BUN Creatinine Est Cr Clr Drug Dosing Est GFR ( Amer) Est GFR (Non-Af Amer) BUN/Creatinine Ratio Glucose Calcium Magnesium Total Bilirubin AST ALT Alkaline Phosphatase Total Creatine Kinase Troponin I High Sens Total Protein Albumin Globulin Albumin/Globulin Ratio Lipase TSH 2.518 HCG, Qual Negative Urine Color Urine Appearance Urine pH Ur Specific [place] Urine Protein Urine Glucose (UA) Urine Ketones Urine Blood Urine Nitrite Urine Bilirubin Urine Urobilinogen Ur Leukocyte Esterase SARS-CoV-2, RNA, NAAT Blood Type Antibody Screen Crossmatch 01/21/23 01/21/23 01/21/23 10:55 10:55 11:00 WBC RBC Hgb Hct MCV MCH MCHC RDW Std Deviation RDW Coeff of Quiana Plt Count MPV Immature Gran % (Auto) Neut % (Auto) Lymph % (Auto) [place] % (Auto) Eos % (Auto) Baso % (Auto) Neut # (Auto) Lymph # (Auto) [place] # (Auto) Eos # (Auto) Baso # (Auto) Immature Gran # (Auto) Absolute Nucleated RBC Nucleated RBC % (auto) Polychromasia Hypochromasia Ovalocytes PT INR APTT Cancelled PTT Ratio Cancelled Sodium Potassium Chloride Carbon Dioxide Anion Gap BUN Creatinine Est Cr Clr Drug Dosing Est GFR ( Amer) Est GFR (Non-Af Amer) BUN/Creatinine Ratio Glucose Calcium Magnesium Total Bilirubin AST ALT Alkaline Phosphatase Total Creatine Kinase Troponin I High Sens Total Protein Albumin Globulin Albumin/Globulin Ratio Lipase 18 TSH HCG, Qual Urine Color Urine Appearance Urine pH Ur Specific [place] Urine Protein Urine Glucose (UA) Urine Ketones Urine Blood Urine Nitrite Urine Bilirubin Urine Urobilinogen Ur Leukocyte Esterase SARS-CoV-2, RNA, NAAT NEGATIVE Blood Type Antibody Screen Crossmatch 01/21/23 01/21/23 01/22/23 18:14 Unknown 00:48 WBC RBC Hgb 7.6 L 6.7 L* Hct 24.0 L 21.9 L MCV MCH MCHC RDW Std Deviation RDW Coeff of Quiana Plt Count MPV Immature Gran % (Auto) Neut % (Auto) Lymph % (Auto) [place] % (Auto) Eos % (Auto) Baso % (Auto) Neut # (Auto) Lymph # (Auto) [place] # (Auto) Eos # (Auto) Baso # (Auto) Immature Gran # (Auto) Absolute Nucleated RBC Nucleated RBC % (auto) Polychromasia Hypochromasia Ovalocytes PT INR APTT PTT Ratio Sodium Potassium Chloride Carbon Dioxide Anion Gap BUN Creatinine Est Cr Clr Drug Dosing Est GFR ( Amer) Est GFR (Non-Af Amer) BUN/Creatinine Ratio Glucose Calcium Magnesium Total Bilirubin AST ALT Alkaline Phosphatase Total Creatine Kinase Troponin I High Sens Total Protein Albumin Globulin Albumin/Globulin Ratio Lipase TSH HCG, Qual Urine Color Yellow Urine Appearance Clear Urine pH 6.0 Ur Specific [place] 1.008 Urine Protein Negative Urine Glucose (UA) Negative Urine Ketones Negative Urine Blood Negative Urine Nitrite Negative Urine Bilirubin Negative Urine Urobilinogen Negative Ur Leukocyte Esterase Negative SARS-CoV-2, RNA, NAAT Blood Type Antibody Screen Crossmatch 01/22/23 01/22/23 05:48 05:48 WBC 6.87 RBC 3.22 L Hgb 8.0 L Hct 25.1 L MCV 78.0 L D MCH 24.8 L MCHC 31.9 L RDW Std Deviation 54.7 H RDW Coeff of Quiana 19.2 H Plt Count 265 MPV 10.4 Immature Gran % (Auto) 0.6 Neut % (Auto) 53.7 Lymph % (Auto) 31.4 [place] % (Auto) 12.8 Eos % (Auto) 0.9 Baso % (Auto) 0.6 Neut # (Auto) 3.69 Lymph # (Auto) 2.16 [place] # (Auto) 0.88 H Eos # (Auto) 0.06 Baso # (Auto) 0.04 Immature Gran # (Auto) 0.04 Absolute Nucleated RBC Nucleated RBC % (auto) Polychromasia Hypochromasia Ovalocytes PT INR APTT PTT Ratio Sodium 138 Potassium 3.9 Chloride 108 H Carbon Dioxide 25 Anion Gap 5 BUN 7 Creatinine 0.76 Est Cr Clr Drug Dosing 117.0 Est GFR ( Amer) 120.3 Est GFR (Non-Af Amer) 103.8 BUN/Creatinine Ratio 9.2 L Glucose 90 Calcium 9.1 Magnesium Total Bilirubin 0.8 D AST 11 L ALT 8 Alkaline Phosphatase 47 Total Creatine Kinase Troponin I High Sens Total Protein 6.3 Albumin 3.8 Globulin 2.5 Albumin/Globulin Ratio 1.5 Lipase TSH HCG, Qual Urine Color Urine Appearance Urine pH Ur Specific [place] Urine Protein Urine Glucose (UA) Urine Ketones Urine Blood Urine Nitrite Urine Bilirubin Urine Urobilinogen Ur Leukocyte Esterase SARS-CoV-2, RNA, NAAT Blood Type Antibody Screen Crossmatch Diagnostic Findings Abdomen/Pelvis CT 01/21/23 10:57 CT OF THE ABDOMEN AND PELVIS WITH CONTRAST CLINICAL HISTORY: Syncope, post colonoscopy GI Bleed. COMPARISON STUDY: CT of the abdomen and pelvis April 12, 2021 TECHNIQUE: Following IV administration of 92 mL of Optiray, axial images of the abdomen and pelvis were obtained from the lung bases to the proximal femurs. Images were reviewed in the axial, sagittal, and coronal planes. IV contrast was administered without complication. Automated exposure control was utilized for the study. A dose lowering technique was utilized adhering to the principles of ALARA. FINDINGS: Lung bases are unremarkable. No pneumatosis, free air or portal venous gas is present. There is no biliary ductal dilatation status post cholecystectomy. Liver, spleen, adrenal glands and pancreas are unremarkable. Several bilateral renal calculi measure up to 5 mm. There are no ureteral calculi. There is no hydronephrosis. The caliber and wall thickness of small and large bowel are normal. There is no evidence for acute appendicitis. No fluid collection is present. There is no free fluid. A Hurtado balloon within the bladder is present. The ovaries are not enlarged. No acute fractures are identified within the visualized skeletal structures. Major vasculature is patent. IMPRESSION: 1. No acute process within the abdomen or pelvis. No pneumoperitoneum. 2. Bilateral nephrolithiasis. ACT 112: Negative or not required by law. Electronically signed by: Chase Teresa M.D. 01/21/2023 12:[address] 01/21/23 10:57 CT SCAN OF THE BRAIN WITHOUT IV CONTRAST CLINICAL HISTORY: Syncope COMPARISON STUDY: CT of the brain dated 07/08/2021. TECHNIQUE: Unenhanced axial CT scan of the brain is performed from the vertex to the skull base. A dose lowering technique was utilized adhering to the principles of ALARA. CT DOSE: 2021.60 mGy.cm FINDINGS: Brain parenchyma: The brain parenchyma is normal in appearance. There is no hemorrhage, mass effect, or evidence of acute territorial ischemia by CT criteria. [place]-white matter differentiation is preserved. No extra-axial fluid collection is seen. Ventricles, sulci, cisterns: Normal in configuration. Intracranial vasculature: The visualized intracranial vasculature at the skull base is normal in appearance. Calvarium: Unremarkable. Sinuses and mastoids: The visualized paranasal sinuses are clear. The mastoid air cells are well pneumatized. Orbits: The bony orbits are grossly intact. IMPRESSION: No acute intracranial abnormality. ACT 112: Negative or not required by law. Electronically signed by: Brian Meyer M.D. 01/21/2023 12:15 PM Chest X-Ray 01/21/23 10:58 XR chest 1V portable HISTORY: 32 years-old Female syncope acute chest trauma with syncope COMPARISON: 04/25/2021 TECHNIQUE: AP view of the chest FINDINGS: Cardiomediastinal and hilar silhouettes are within normal limits. No pneumothorax, pleural effusion, airspace consolidation or pulmonary edema. Cholecystectomy. Bones appear grossly intact. Bilateral nipple jewelry. IMPRESSION: No acute process. ACT 112: Negative or not required by law. The above report was generated using voice recognition software. It may contain grammatical, syntax or spelling errors. Electronically signed by: Mac Welch M.D. 01/21/2023 11:18 AM
--- NOTE | 2023-01-22 11:17 | Nuclear Medicine Report ---
TAGGED RED BLOOD CELL GI BLEEDING SCAN CLINICAL HISTORY: Persistent GI bleed COMPARISON STUDY: CT of the abdomen and pelvis January 21, 2023. TECHNIQUE: Following the IV administration of 26 mCi of technetium 99m UltraTag labeled red blood jael ls, nuclear bleeding scan was performed. Anterior flow images were obtained every 2 seconds for a tot al 48 seconds. Anterior static images were obtained every 5 minutes for a total of 60 minutes. FINDINGS: Expected radiotracer distribution is noted. There are no foci of radiotracer uptake to sug gest active GI bleed during this 60 minute examination. Mucous within the bladder is noted. IMPRESSION: No evidence for active GI bleed during this 60 minute study. ACT 112: Negative or not required by law. Electronically signed by: Chase Teresa M.D. 01/22/2023 11:16 AM
[2023-01-22 12:39] LABS: Hematocrit (blood only) 24.1 % (37.0-47.0); Hemoglobin 7.9 g/dl (12.0-16.0)
--- NOTE | 2023-01-22 18:17 | Billing Data ---
Date of Service January 22, 2023 Coding Level of Care Code 35847 SUB INP/OBS CARE
[2023-01-22] MEDS: LACTATED RINGER'S 1,000 ML IV SCH (18:33)
[2023-01-22 19:04] LABS: Hematocrit (blood only) 25.3 % (37.0-47.0); Hemoglobin 8.2 g/dl (12.0-16.0)
[2023-01-23] MEDS: LACTATED RINGER'S 1,000 ML IV SCH ×2 (04:22→14:30)
[2023-01-23] MEDS: ONDANSETRON INJ 2 MG/ML 2 ML VIAL IV PRN (04:33)
[2023-01-23] MEDS ORDERED: SIMETHICONE 80 MG CHEW PO ONE (04:35)
--- NOTE | 2023-01-23 06:09 | Electrocardiogram Report ---
Test Reason : Blood Pressure : / mmHG Vent. Rate : 143 BPM Atrial Rate : 143 BPM P-R Int : 128 ms QRS Dur : 082 ms QT Int : 292 ms P-R-T Axes : 024 044 -06 degrees QTc Int : 450 ms Sinus tachycardia When compared with ECG of 08-JUL-2021 04:28, Vent. rate has increased BY 74 BPM Nonspecific T wave abnormality no longer evident in Anterior leads Confirmed by Malick Ocampo ([id number]) on 01/23/2023 6:09:10 AM Referred By: REFERRED SELF Confirmed By:Malick Ocampo
[2023-01-23 06:46] LABS: Basophils # (auto) 0.03 K/uL (0-0.2); Basophils % (auto) 0.5 %; Eosinophils # (auto) 0.08 K/uL (0-0.50); Eosinophils % (auto) 1.3 %; Hematocrit (blood only) 25.7 % (37.0-47.0); Hemoglobin 8.1 g/dl (12.0-16.0); Immature Granulocytes # (auto) 0.04 K/uL (0.01-0.20); Immature Granulocytes % (auto) 0.7 %; Lymphocytes # (auto) 1.49 K/uL (1.2-3.4); Lymphocytes % (auto) 24.8 %; Mean Corpuscular Hemoglobin 24.4 pg (25.0-34.0); Mean Corpuscular Hgb Conc 31.5 g/dL (32.0-36.0); Mean Corpuscular Volume 77.4 fL (80.0-100.0); Mean Platelet Volume 10.6 fL (9.4-12.4); Monocytes # (auto) 0.69 K/uL (0.11-0.59); Monocytes % (auto) 11.5 %; Neutrophils # (auto) 3.69 K/uL (1.40-6.50); Neutrophils % (auto) 61.2 %; Platelet Count 266 K/uL (130-400); RDW Coefficient of Variation 19.8 % (11.5-14.5); RDW Standard Deviation 55.8 fL (36.4-46.3); Red Blood Count 3.32 M/uL (4.20-5.40); White Blood Count 6.02 K/ul (4.8-10.8)
[2023-01-23 07:05] LABS: BUN Creatinine Ratio 12.7 (10-20); Calcium 9.2 mg/dl (8.6-10.3); Creatinine Clr Calc Pharmacy 130.4 ml/min; Est GFR (African American) 130.6 ml/min; Est GFR (Non-African American) 112.7 ml/min; Potassium 3.8 mmol/L (3.5-5.1)
[2023-01-23] MEDS ORDERED: LIDOCAINE 2% LOCAL 20 ML VIAL INFIL ONE (08:00)
--- NOTE | 2023-01-23 08:47 | Gastroenterology Progress Note ---
Supervising physicians note Case discussed with Hyacinth Browning NP, patient seen. She is doing well. Only one small clot today. Still battling nausea Okay with me to discharge. Hyacinth is arranging completion of the workup as an outpatient. I have spent a total of ten minutes on this case today mostly in discussion Rosalia De Jr, MD, [facility] Date of Service January 23, 2023 Assessment & Plan (1) Acute GI bleeding: Plan: Acute GI bleed: Patient had large amount of rectal bleeding following colonoscopy and EGD 01/21/2023. No significant explanation for bleeding postprocedure as minimal biopsies were obtained. NM GI bleeding study demonstrated no active bleeding. Recommend Meckel's scan but cannot be completed until 48 hours post NM bleeding study. If H/H remain stable, further work-up including Meckel's scan, capsule, and/or double balloon enteroscopy can be considered as outpatient. Continue supportive care measures and prn transfusion. Case reviewed with Dr. De. Please refer to supervising physician addendum for further recommendations. I have spent 20 minutes of discrete time performing the activities of this visit which include but are not limited to review of the medical record, obtaining a history, physical exam, and entering information in the electronic record. Admission and Anticipated Discharge Date Admission Date: January 21, 2023 Subjective Patient awake alert and oriented this morning. She is tolerating current diet well. She denies specific abdominal discomfort or pain but does note some continued nausea. She had one blood clot through the night. Has had no stool output. Has not required blood transfusion since yesterday. Counts are stable this morning. Review of Systems Review of Systems: All systems reviewed & are unremarkable except as noted in Subjective Physical Exam Gastrointestinal (Abdomen): Inspection/Auscultation: abdomen normal to inspection and normal bowel sounds; abdomen not distended Percussion/Palpation: + abdomen tender and abdomen soft; no guarding and abdomen not rigid Results & Data Vital Signs (Past 12 Hours) Vital Signs Temp Pulse Pulse Resp BP BP Pulse Ox 01/23/23 08:26 36.6 C 60 20 113/75 100 01/23/23 07:23 50 L 01/23/23 03:16 36.6 C 77 20 99/67 L 98 01/22/23 21:59 50 L 01/22/23 23:31 36.6 C 82 16 95/58 L 99 O2 Del Method 01/23/23 08:26 Room Air 01/23/23 07:23 01/23/23 03:16 Room Air 01/22/23 21:59 01/22/23 23:31 Room Air Laboratory Results Laboratory Results - last 24 hr 01/22/23 01/22/23 01/23/23 12:18 18:45 06:17 WBC 6.02 RBC 3.32 L Hgb 7.9 L 8.2 L 8.1 L Hct 24.1 L 25.3 L 25.7 L MCV 77.4 L MCH 24.4 L MCHC 31.5 L RDW Std Deviation 55.8 H RDW Coeff of Quiana 19.8 H Plt Count 266 MPV 10.6 Immature Gran % (Auto) 0.7 Neut % (Auto) 61.2 Lymph % (Auto) 24.8 [place] % (Auto) 11.5 Eos % (Auto) 1.3 Baso % (Auto) 0.5 Neut # (Auto) 3.69 Lymph # (Auto) 1.49 [place] # (Auto) 0.69 H Eos # (Auto) 0.08 Baso # (Auto) 0.03 Immature Gran # (Auto) 0.04 Sodium Potassium Chloride Carbon Dioxide Anion Gap BUN Creatinine Est Cr Clr Drug Dosing Est GFR ( Amer) Est GFR (Non-Af Amer) BUN/Creatinine Ratio Glucose Calcium 01/23/23 06:17 WBC RBC Hgb Hct MCV MCH MCHC RDW Std Deviation RDW Coeff of Quiana Plt Count MPV Immature Gran % (Auto) Neut % (Auto) Lymph % (Auto) [place] % (Auto) Eos % (Auto) Baso % (Auto) Neut # (Auto) Lymph # (Auto) [place] # (Auto) Eos # (Auto) Baso # (Auto) Immature Gran # (Auto) Sodium 136 Potassium 3.8 Chloride 106 Carbon Dioxide 25 Anion Gap 5 BUN 9 Creatinine 0.71 Est Cr Clr Drug Dosing 130.4 Est GFR ( Amer) 130.6 Est GFR (Non-Af Amer) 112.7 BUN/Creatinine Ratio 12.7 Glucose 88 Calcium 9.2 Diagnostic Findings GI Bleed Scan Nuclear Medicine 01/22/23 09:30 TAGGED RED BLOOD CELL GI BLEEDING SCAN CLINICAL HISTORY: Persistent GI bleed COMPARISON STUDY: CT of the abdomen and pelvis January 21, 2023. TECHNIQUE: Following the IV administration of 26 mCi of technetium 99m UltraTag labeled red blood cells, nuclear bleeding scan was performed. Anterior flow images were obtained every 2 seconds for a total 48 seconds. Anterior static images were obtained every 5 minutes for a total of 60 minutes. FINDINGS: Expected radiotracer distribution is noted. There are no foci of radiotracer uptake to suggest active GI bleed during this 60 minute examination. Mucous within the bladder is noted. IMPRESSION: No evidence for active GI bleed during this 60 minute study. ACT 112: Negative or not required by law. Electronically signed by: Chase Teresa M.D. 01/22/2023 11:16 AM
--- NOTE | 2023-01-23 14:07 | Hospitalist Progress Note ---
Date of Service January 23, 2023 Assessment & Plan (1) Abdominal pain: (2) Nausea and vomiting: (3) Acute GI bleeding: (4) Symptomatic anemia: Plan Delmi Rivera is a 32 year-old female who presented to the ED for due to a syncopal event following colonoscopy and upper endoscopy earlier in the day. She has a past medical history of iron deficiency, anemia, ADHD, depression. Acute GI bleeding -Suspect lower GI bleed -CT Abdomen/Pelvis: no acute process within the abdomen or pelvis, no pneumoperitoneum -Patient was discussed with Dr De who performed EGD and colonoscopy and no need for IV pantoprazole as suspected to be lower GI -Tagged RBC scan without acute bleed -Plan for Meckel's scan, outpatient capsule endoscopy -Hemoglobin 5.7 in ED, has received 3 units PRBCs total since admission -Hgb today stable at 8.1, has not required any additional transfusions today -Transfusion threshold < 7 Symptomatic anemia -Longstanding history, underlying etiology unknown -Patient reports iron deficiency and was planning on starting iron transfusions. RBC transfusion as above. Nausea and vomiting, Abdominal Pain -Very little PO intake for weeks, has lost 30 pounds in the past month -Unclear what is causing this for the last month and certainly warrants further investigation given essentially normal EGD/colonoscopy -Progressively getting worse for the last month, does note sharp upper abdominal pain prior to nausea/vomiting and exam suspicious of trigger points -Plan to inject trigger points today -IV fluids ongoing. Encourage PO intake, will need patient to be consistently keeping down calories prior to discharge -Will trial scheduled antiemetics with Zofran 4mg q6h to get ahead of nausea symptoms -Protonix 40 BID IV, Pepcid 20 BID IV, and Carafate PO QID ordered VTE Prophylaxis: chemical contraindicated Diet: Regular Disposition: PCU Code Status: Full Code Admission and Anticipated Discharge Date Admission Date: January 21, 2023 Supervising Physician Co-Signing Physician Notes I personally examined the patient and verified all loco points of history and exam, discussed case, and agree with decision making with Dr Anders was able to eat a tiny bit today without vomiting. Discussed working diagnosis of possible abdominal wall trigger point causing nausea, explained risk/benefits/alternatives to trigger point injections, she agreed to proceed. Vitals noted, in general she is awake and alert pleasant no distress. HEENT normocephalic atraumatic mucous membranes moist. Breathing unlabored no accessory muscle use good effort. Skin shows no rashes no pallor or icterus. Neuro without focal deficits. Abdomen is soft may be mildly distended no real tenderness outside of epigastric and left upper abdomenwhere she also definitely has some discrete trigger points that are palpable. See separate procedure note Acute blood loss anemia with GI bleedingseems to be resolving. Nuc med scan negative. stable for discharge in this regard. Capsule endoscopy as an outpatient, although if bleeding recurs, probably would need to transfer for double-balloon. Intractable nausea vomiting and weight lossdoes not show pathology on EGD, colonoscopy, CT abdomen pelvisdoes have trigger pointsthis could certainly fit. Functional disorders/functional dyspepsia/motility disorder is quite possible as well. Has a history of endometriosisbut notes that it does not really bother her outside of around the time of her mensesgiven that she still notices it, I doubt endometrial deposits are at play. Given the trigger point ejections would be the highest yield to change her situation, we opted to proceed with this today after discussions and informed consent, 5 trigger points were injected all were exquisitely painful, and that gives me a degree of optimism that we may be on the right track with this as a differential. Discussed with patient that sometimes when the lidocaine kicks in people notice a degree of immediate relief that wears off, but that would be very helpful diagnostically, and that frequently people will feel worse (particular with nausea) before feeling betterbut if that were to happen that also would be quite helpful prognostically/diagnostically. Voltaren gel 4 times daily to area of trigger points as well. Just to try to help her stomach feel better to be able to eattwice daily Pepcid, twice daily Protonix, 4 times daily Carafate, scheduled Zofran. Subjective Patient seen and examined at bedside. Notes that she had one episode of vomiting this morning after taking a sip of Sprite. Tried to drink some chicken broth and eat a popsicle yesterday but wasn't able to consume much. Notes one additional small clot overnight but no true bowel movements. Denies urinary symptoms, shortness of breath, or chest pain. Was able to ambulate around the evans yesterday afternoon without lightheadedness or dizziness. Patient's biggest symptom is abdominal bloating and also has had ongoing reflux symptoms. Also notes increased flatulence. Review of Systems Review of Systems: As per above Physical Exam Constitutional: comfortable; no acute distress Eyes: + anicteric sclerae ENMT: Ears: no external ear abnormality Nose: no external nose abnormality Respiratory: normal respiratory effort, lungs clear to auscultation Cardiovascular: RRR, no murmur, no edema Gastrointestinal (Abdomen): Abdomen soft, nondistended. Tenderness with palpation of upper abdomen. Musculoskeletal: Extremities: extremities normal to inspection Skin: no rashes, warm and dry Psychiatric: A+Ox3, euthymic affect Results & Data Results & Data Vital Signs (Past 12 Hours) Vital Signs Temp Pulse Pulse Resp BP BP Pulse Ox 01/23/23 12:30 36.8 C 69 19 110/70 100 01/23/23 08:26 36.6 C 60 20 113/75 100 01/23/23 07:23 50 L 01/23/23 03:16 36.6 C 77 20 99/67 L 98 O2 Del Method 01/23/23 12:30 Room Air 01/23/23 08:26 Room Air 01/23/23 07:23 01/23/23 03:16 Room Air Resident Activity Tracking Resident Involvement: Resident Care Provided Care Provided: Adult Hospital Medicine
[2023-01-23] MEDS ORDERED: ondansetron HCL 8 MG in DEXTROSE 5% 50 ML IV SCH (15:15)
[2023-01-23] MEDS: SUCRALFATE 1 GM/10 ML UDC PO SCH ×2 (16:22→20:55)
[2023-01-23] MEDS: ONDANSETRON INJ 2 MG/ML 2 ML VIAL IV SCH ×2 (16:22→20:56)
[2023-01-23] MEDS ORDERED: DICLOFENAC SOD 1% GEL 100 GM TUBE EXT SCH (18:00)
[2023-01-23] MEDS ORDERED: ONDANSETRON INJ 2 MG/ML 2 ML VIAL IV STA (18:05)
--- NOTE | 2023-01-23 18:13 | Billing Data ---
Date of Service January 23, 2023 Coding Level of Care Code 21251 SUB INP/OBS CARE 3/50MIN Comment Also injected trigger points x5
--- NOTE | 2023-01-23 18:15 | Communication Note ---
Date of Service: January 23, 2023 abdominal wall trigger point injection procedure note risk/benefits/alternatives discussed, patient consented, form signed. Area cleaned with alcohol and Betadine, 5 cc of 2% lidocaine without epinephrine drawn up, and utilizing a 20-gauge 1 inch needle, 5 discrete trigger points were injected, the first [address] Anders under my direct and close supervision, the last 3 by myself personally, patient tolerated well. Of note while she did not have exquisite pain when we first broke the skin, whenever it felt as the performing physician that we had hit an area of soft tissue consistent with a trigger point, she also had an exquisite increase in pain different than simply breaking the skin or moving the needle in the subcutaneous layer hemostasis essentially spontaneous, although Band-Aids applied, patient tolerated well.
[2023-01-23] MEDS: PANTOprazole 40 MG in SYRINGE 0 ML IV SCH (20:55)
[2023-01-23] MEDS: DICLOFENAC SOD 1% GEL 100 GM TUBE EXT SCH (20:56)
[2023-01-23] MEDS: FAMOTIDINE 20 MG in SYRINGE 3 ML IV SCH (21:09)
[2023-01-24] MEDS: LACTATED RINGER'S 1,000 ML IV SCH ×3 (00:30→20:17)
[2023-01-24] MEDS: ONDANSETRON INJ 2 MG/ML 2 ML VIAL IV SCH ×4 (03:43→20:18)
[2023-01-24 08:13] LABS: Hematocrit (blood only) 24.9 % (37.0-47.0); Hemoglobin 7.8 g/dl (12.0-16.0); Mean Corpuscular Hemoglobin 24.5 pg (25.0-34.0); Mean Corpuscular Hgb Conc 31.3 g/dL (32.0-36.0); Mean Corpuscular Volume 78.1 fL (80.0-100.0); Platelet Count 266 K/uL (130-400); RDW Coefficient of Variation 20.3 % (11.5-14.5); RDW Standard Deviation 57.8 fL (36.4-46.3); Red Blood Count 3.19 M/uL (4.20-5.40); White Blood Count 6.13 K/ul (4.8-10.8)
[2023-01-24] MEDS: DICLOFENAC SOD 1% GEL 100 GM TUBE EXT SCH ×4 (08:20→20:17)
[2023-01-24] MEDS: FAMOTIDINE 20 MG in SYRINGE 3 ML IV SCH ×2 (08:20→21:20)
[2023-01-24] MEDS: PANTOprazole 40 MG in SYRINGE 0 ML IV SCH ×2 (08:20→20:17)
[2023-01-24 08:23] LABS: BUN Creatinine Ratio 12.5 (10-20); Calcium 8.8 mg/dl (8.6-10.3); Creatinine Clr Calc Pharmacy 115.6 ml/min; Est GFR (African American) 113.1 ml/min; Est GFR (Non-African American) 97.6 ml/min; Potassium 3.9 mmol/L (3.5-5.1)
[2023-01-24] MEDS ORDERED: FAMOTIDINE 20 MG in SYRINGE 3 ML IV ONE (09:00)
[2023-01-24] MEDS: SUCRALFATE 1 GM/10 ML UDC PO SCH ×4 (09:05→21:20)
[2023-01-24] MEDS: IRON SUCROSE 200 MG in 0.9 % SODIUM CHLORIDE 100 ML IV SCH (09:09)
[2023-01-24] MEDS ORDERED: CIMETIDINE 300 MG IV ONE (09:30)
[2023-01-24 11:25] LABS: Lyme Ab IgG w/WB Rflx Negative (Negative); Lyme Ab IgM w/WB Rflx Negative (Negative)
--- NOTE | 2023-01-24 13:11 | Nuclear Medicine Report ---
NM Meckel's HISTORY: recurrent GI bleeding TECHNIQUE: Immediately following the intravenous administration of 15.7 mCi of technetium 99 M sodium pertechnetate, dynamic imaging of the abdomen and pelvis was performed for total of 60 minutes. COMPARISON STUDY: Abdomen and pelvis CT 01/21/2023. FINDINGS: There is expected radiotracer uptake within the gastric mucosa. No additional areas of abno rmal radiotracer uptake identified within the abdomen or pelvis. IMPRESSION: No abnormal areas of radiotracer uptake identified within the abdomen or pelvis. ACT 112: Negative or not required by law. Electronically signed by: Nicolas Nair M.D. 01/24/2023 1:08 PM
--- NOTE | 2023-01-24 13:37 | Hospitalist Progress Note ---
Date of Service January 24, 2023 Assessment & Plan (1) Abdominal pain: (2) Nausea and vomiting: (3) Acute GI bleeding: (4) Symptomatic anemia: Plan Delmi Rivera is a 32 year-old female who presented to the ED for due to a syncopal event following colonoscopy and upper endoscopy earlier in the day. She has a past medical history of iron deficiency, anemia, ADHD, depression. Acute GI bleeding -Suspect lower GI bleed -CT Abdomen/Pelvis: no acute process within the abdomen or pelvis, no pneumoperitoneum -Patient was discussed with Dr De who performed EGD and colonoscopy and no need for IV pantoprazole as suspected to be lower GI -Tagged RBC scan without acute bleed -Meckel's scan today (01/24) negative -Hemoglobin 5.7 in ED, has received 3 units PRBCs total since admission -Hgb today stable, has not required any additional transfusions today -Transfusion threshold < 7 Symptomatic anemia -Longstanding history, underlying etiology unknown -Patient reports iron deficiency and was planning on starting iron transfusions. RBC transfusion as above. -Ordered Venofer 200mg daily Nausea and vomiting, Abdominal Pain -Very little PO intake for weeks, has lost 30 pounds in the past month -Unclear what is causing this for the last month and certainly warrants further investigation given essentially normal EGD/colonoscopy -Progressively getting worse for the last month, does note sharp upper abdominal pain prior to nausea/vomiting and exam suspicious of trigger points -Trigger points injected on 01/23/23. -IV fluids ongoing. Encourage PO intake, will need patient to be consistently keeping down calories prior to discharge -Continue scheduled antiemetics with Zofran 4mg q6h to get ahead of nausea symptoms -Protonix 40 BID IV, Pepcid 20 BID IV, and Carafate PO QID ordered -Voltaren gel QID to upper abdomen -Discussed with patient option of trialing cyproheptadine, buspar for possible functional dyspepsia but will hold off for now to help to determine if trigger points are true etiology VTE Prophylaxis: chemical contraindicated Diet: Regular Disposition: PCU Code Status: Full Code Admission and Anticipated Discharge Date Admission Date: January 21, 2023 Supervising Physician Co-Signing Physician Notes I personally examined the patient and verified all loco points of history and exam, discussed case, and agree with decision making with Dr Martita He had a little but not well, vomited. No further bleeding. Vitals noted, in general she is awake and alert pleasant no distress. HEENT normocephalic atraumatic mucous membranes moist. Breathing unlabored no accessory muscle use good effort. Skin shows no rashes no pallor or icterus. Neuro without focal deficits. Acute blood loss anemia with GI bleedingseems to be resoled. Nuc med scan negative. Meckel scan negative. stable for discharge in this regard. Capsule endoscopy as an outpatient, although if bleeding recurs, probably would need to transfer for double-balloon. Intractable nausea vomiting and weight lossdoes not show pathology on EGD, colonoscopy, CT abdomen pelvisdoes have trigger pointsthis could certainly fit. Functional disorders/functional dyspepsia/motility disorder is quite possible as well. Has a history of endometriosisbut notes that it does not really bother her outside of around the time of her mensesgiven that she still notices it, I doubt endometrial deposits are at play. Given the trigger point ejections would be the highest yield to change her situation, we opted to proceed With injections. At this point it is a little bit difficult because it is too soon to tell if they have helped or notsometimes people get near immediate relief, sometimes it takes a few weeks. Continue Voltaren gel. Today we discussed that our main differentials are trigger point mediated nausea, functional dyspepsia, gastroparesis as the most likelyand discussed philosophically "a shotgun approach" where we treat essentially for all simultaneously, and then unravel later with sequential discontinuation, versus a stepwise approach with diagnostic/therapeutic trials, and the risk benefit and pitfalls of both. For now we will continue managing as though the trigger points are the culprit, and if she is able to get to where she can take enough p.o. to be safe at homewe can continue this line of treatment for the next few weeks. Over the next few days if she is showing no improvement, it may be more prudent to broaden therapeutics, even if it clouds the therapeutic trial diagnostically. Subjective Patient seen and examined at bedside. Had additional episode of vomiting last night after trying the carafate, later was able to tolerate without issue. Got several hours of sleep last night which was an improvement. Woke up this morning with a bit of an appetite but unable to eat while awaiting meckle's scan. Notes that several weeks before n/v started, had a bullseye rash on abdomen (several of her kids tested positive for Lyme at this time). Rash has since gone away. Denies any additional bleeding per rectum/or clots. Review of Systems Review of Systems: As per above Physical Exam Constitutional: comfortable; no acute distress Eyes: + anicteric sclerae ENMT: Ears: no external ear abnormality Nose: no external nose abnormality Respiratory: normal respiratory effort, lungs clear to auscultation Cardiovascular: RRR, no murmur, no edema Gastrointestinal (Abdomen): Abdomen soft, nondistended. +Bowel sounds, tenderness at palpation of upper abomen Musculoskeletal: Extremities: extremities normal to inspection Skin: no rashes, warm and dry Psychiatric: A+Ox3, euthymic affect Results & Data Results & Data Vital Signs (Past 12 Hours) Vital Signs Temp Pulse Pulse Resp BP Pulse Ox O2 Del Method 01/24/23 09:29 61 01/24/23 07:10 36.5 C 72 18 103/66 100 Room Air 01/24/23 02:49 36.5 C 65 18 93/60 L 98 Room Air Resident Activity Tracking Resident Involvement: Resident Care Provided Care Provided: Adult Hospital Medicine
--- NOTE | 2023-01-24 17:18 | Billing Data ---
Date of Service January 24, 2023 Coding Level of Care Code 98303 SUB INP/OBS CARE
[2023-01-25] MEDS: ONDANSETRON INJ 2 MG/ML 2 ML VIAL IV SCH ×4 (04:20→20:58)
[2023-01-25] MEDS: LACTATED RINGER'S 1,000 ML IV SCH ×3 (06:31→21:09)
[2023-01-25 07:04] LABS: Hematocrit (blood only) 24.4 % (37.0-47.0); Hemoglobin 7.7 g/dl (12.0-16.0); Mean Corpuscular Hemoglobin 24.1 pg (25.0-34.0); Mean Corpuscular Hgb Conc 31.6 g/dL (32.0-36.0); Mean Corpuscular Volume 76.3 fL (80.0-100.0); Mean Platelet Volume 10.2 fL (9.4-12.4); Platelet Count 249 K/uL (130-400); RDW Coefficient of Variation 20.4 % (11.5-14.5); RDW Standard Deviation 56.4 fL (36.4-46.3); White Blood Count 6.58 K/ul (4.8-10.8)
[2023-01-25 07:16] LABS: BUN Creatinine Ratio 11.9 (10-20); Calcium 8.8 mg/dl (8.6-10.3); Creatinine Clr Calc Pharmacy 110.1 ml/min; Est GFR (African American) 106.6 ml/min; Potassium 3.8 mmol/L (3.5-5.1)
--- NOTE | 2023-01-25 07:52 | Hospitalist Progress Note ---
Date of Service January 25, 2023 Assessment & Plan (1) Abdominal pain: (2) Nausea and vomiting: (3) Acute GI bleeding: (4) Symptomatic anemia: Plan Delmi Rivera is a 32 year-old female who presented to the ED for due to a syncopal event following colonoscopy and upper endoscopy earlier in the day. She has a past medical history of iron deficiency, anemia, ADHD, depression. Acute GI bleeding -Suspect lower GI bleed -CT Abdomen/Pelvis: no acute process within the abdomen or pelvis, no pneumoperitoneum -Patient was discussed with Dr De who performed EGD and colonoscopy and no need for IV pantoprazole as suspected to be lower GI -Tagged RBC scan without acute bleed -Meckel's scan (01/24) negative -Hemoglobin 5.7 in ED, has received 3 units PRBCs total since admission -Hgb today stable, has not required any additional transfusions -Transfusion threshold < 7 Symptomatic anemia -Longstanding history, underlying etiology unknown -Patient reports iron deficiency and was planning on starting iron transfusions. RBC transfusion as above. -Ordered Venofer 200mg daily x5 days Nausea and vomiting, Abdominal Pain -Very little PO intake for weeks, has lost 30 pounds in the past month -Unclear what is causing this for the last month and certainly warrants further investigation given essentially normal EGD/colonoscopy -Progressively getting worse for the last month, does note sharp upper abdominal pain prior to nausea/vomiting and exam suspicious of trigger points -Trigger points injected on 01/23/23. -IV fluids ongoing. Encourage PO intake, will need patient to be consistently keeping down calories prior to discharge -Continue scheduled antiemetics with Zofran 4mg q6h to get ahead of nausea symptoms -Protonix 40 BID IV, Pepcid 20 BID IV, and Carafate PO QID ordered -Voltaren gel QID to upper abdomen -Discussed with patient option of trialing cyproheptadine, buspar for possible functional dyspepsia. Could consider gastroparesis slightly further up in differential if emesis several hours after eating contained food -Due to suspected anxiety component (secondary to intractable nausea/vomiting for over 1 month), will trial anxiolytic prior to meals -Since PO intake is still low, will first try Ativan 0.25 IV AC. If able to increase PO intake/can tolerate pills, can switch to Buspar or Hydroxyzine VTE Prophylaxis: chemical contraindicated Diet: Regular Disposition: PCU Code Status: Full Code Admission and Anticipated Discharge Date Admission Date: January 21, 2023 Supervising Physician Co-Signing Physician Notes I personally examined the patient and verified all loco points of history and exam, discussed case, and agree with decision making with Dr Anders Eating a little better, still vomiting some but less. Walking the halls. Notes that Carafate is just too chalky texture definitely not helping. Vitals noted, in general she is awake and alert pleasant no distress. HEENT normocephalic atraumatic mucous membranes moist. Breathing unlabored no accessory muscle use good effort. Skin shows no rashes no pallor or icterus. Neuro without focal deficits. Acute blood loss anemia with GI bleedingseems to be resoled. Nuc med scan negative. Meckel scan negative. stable for discharge in this regard. Capsule endoscopy as an outpatient, although if bleeding recurs, probably would need to transfer for double-balloon. this appears to be stable Intractable nausea vomiting and weight lossdoes not show pathology on EGD, colonoscopy, CT abdomen pelvisdoes have trigger pointsthis could certainly fit. Functional disorders/functional dyspepsia/motility disorder is quite possible as well. Has a history of endometriosisbut notes that it does not really bother her outside of around the time of her mensesgiven that she still notices it, I doubt endometrial deposits are at play. Given the trigger point ejections would be the highest yield to change her situation, we opted to proceed With injections. At this point it is a little bit difficult because it is too soon to tell if they have helped or notsometimes people get near immediate relief, sometimes it takes a few weeks. Continue Voltaren gel. . Carafate since not helping, and the texture is definitely making her worse. Re jordyn physician raised the very valid question of is some of her GI intolerance symptoms consistent with mild refeeding given her profound acute calorie malnutrition over the last monthencourage patient to go slow, check mag and Phos, continue to follow. Right now working differential at the top of the list would be trigger pointsbut certainly functional dyspepsia or gastroparesis both could be at play either independently or in combination as well. Subjective Patient seen and examined at bedside. She notes that last night she was able to eat several bites of a sandwich and keep it down for 2-3 hours until she had a "gulp" of powerade which lead to her vomiting it up. She states that she thinks she did vomit some of the sandwich bc she could see "chunks" in it. Patient notes that after each bite she begins to panic a bit and tries to breathe through the panic, she is worried after each bite that she will vomit it back up. She states she was able to consume half a cup of ice chips yesterday. Continues to experience bloating which improves with flatulence, is requesting Gas-X. She also notes a small oozing spot at her right arm where her IV blew yesterday. She denies fever, body aches or chills. Review of Systems Review of Systems: As per above Physical Exam Constitutional: comfortable; no acute distress Eyes: + anicteric sclerae ENMT: Ears: no external ear abnormality Nose: no external nose abnormality Respiratory: normal respiratory effort, lungs clear to auscultation Cardiovascular: RRR, no murmur, no edema Gastrointestinal (Abdomen): Abdomen soft, some tenderness/bloating noted with palpation Musculoskeletal: Extremities: extremities normal to inspection Skin: no rashes, warm and dry Psychiatric: A+Ox3, euthymic affect Results & Data Results & Data Vital Signs (Past 12 Hours) Vital Signs Temp Pulse Resp BP Pulse Ox O2 Del Method 01/25/23 02:39 36.5 C 53 L 18 106/69 97 Room Air 01/24/23 22:56 36.6 C 50 L 18 109/72 100 Room Air Resident Activity Tracking Resident Involvement: Resident Care Provided Care Provided: Adult Hospital Medicine
[2023-01-25] MEDS: SUCRALFATE 1 GM/10 ML UDC PO SCH ×3 (08:54→16:39)
[2023-01-25] MEDS: IRON SUCROSE 200 MG in 0.9 % SODIUM CHLORIDE 100 ML IV SCH (08:55)
[2023-01-25] MEDS: DICLOFENAC SOD 1% GEL 100 GM TUBE EXT SCH ×4 (08:55→20:58)
[2023-01-25] MEDS: FAMOTIDINE 20 MG in SYRINGE 3 ML IV SCH ×2 (08:55→21:05)
[2023-01-25] MEDS: PANTOprazole 40 MG in SYRINGE 0 ML IV SCH ×2 (08:55→21:29)
[2023-01-25] MEDS: LORazepam 2 MG/1 ML VIAL IV SCH (16:40)
[2023-01-25] MEDS: SIMETHICONE 40 MG/0.6 ML 30ML PO PRN ×2 (16:42→20:57)
--- NOTE | 2023-01-25 17:01 | Billing Data ---
Date of Service January 25, 2023 Coding Level of Care Code 13587 SUB INP/OBS CARE MIN
[2023-01-26] MEDS: ONDANSETRON INJ 2 MG/ML 2 ML VIAL IV SCH ×3 (03:51→14:36)
[2023-01-26] MEDS: LORazepam 2 MG/1 ML VIAL IV SCH ×2 (07:31→11:26)
[2023-01-26] MEDS: LACTATED RINGER'S 1,000 ML IV SCH (07:32)
[2023-01-26 07:38] LABS: Hematocrit (blood only) 24.4 % (37.0-47.0); Hemoglobin 7.7 g/dl (12.0-16.0); Mean Corpuscular Hemoglobin 24.5 pg (25.0-34.0); Mean Corpuscular Hgb Conc 31.6 g/dL (32.0-36.0); Mean Corpuscular Volume 77.7 fL (80.0-100.0); Mean Platelet Volume 10.7 fL (9.4-12.4); Nucleated RBC # (auto) 0.02 K/uL (0-0.12); Nucleated RBC % (auto) 0.3 %; Platelet Count 247 K/uL (130-400); RDW Coefficient of Variation 21.2 % (11.5-14.5); RDW Standard Deviation 58.2 fL (36.4-46.3); Red Blood Count 3.14 M/uL (4.20-5.40)
[2023-01-26 07:59] LABS: BUN Creatinine Ratio 8.2 (10-20); Calcium 8.7 mg/dl (8.6-10.3); Creatinine Clr Calc Pharmacy 92.4 ml/min; Est GFR (African American) 105.1 ml/min; Est GFR (Non-African American) 90.7 ml/min; Magnesium 1.6 mg/dl (1.7-2.4); Phosphorus 2.9 mg/dl (2.5-4.9); Potassium 3.7 mmol/L (3.5-5.1)
[2023-01-26] MEDS: SIMETHICONE 40 MG/0.6 ML 30ML PO PRN (09:00)
[2023-01-26] MEDS: PANTOprazole 40 MG in SYRINGE 0 ML IV SCH (09:01)
[2023-01-26] MEDS: DICLOFENAC SOD 1% GEL 100 GM TUBE EXT SCH ×3 (09:01→16:02)
[2023-01-26] MEDS: FAMOTIDINE 20 MG in SYRINGE 3 ML IV SCH (09:01)
[2023-01-26] MEDS: IRON SUCROSE 200 MG in 0.9 % SODIUM CHLORIDE 100 ML IV SCH (09:02)
[2023-01-26] MEDS ORDERED: busPIRone 5 MG TAB PO SCH (16:30)
--- NOTE | 2023-01-26 18:03 | Discharge Summary ---
Date of Service January 26, 2023 Admission HPI Per Admitting Provider Delmi Rivera is 32 year old female presents to the ER due to a syncopal event. She underwent colonoscopy and upper endoscopy earlier today which went well although she doesn't remember the journey home. She remembers sitting on the toilet, feeling lightheaded with bright red blood in the toilet after feeling like she had diarrhea. She got up to go downstairs to lie down but cannot remember what happened next until she came to the hospital. She reports being found on the stairs by her boyfriend. The next thing she remembers is arrival at the hospital. She notes poor sleep for the last 2 days with abdominal pain, nausea and vomiting especially after having the colon prep. Abdominal pain today much worse than usual. Stabbing sensation. EGD/colonoscopy were ordered by her PCP to investigate weight loss, abdominal pains and intractable nausea/vomiting. She reports 35 lb weight loss over the last month. The abdominal pain started only with the vomiting and she feels the nausea/vomiting is the primary problem. Before a month ago she did not have this problem at all. Nothing she can remember started it off. Progressively becoming more severe and frequent. Best correlation is with time of day as it is most severe from 3-7am and is therefore also effecting her sleep. No hematemesis. She has not had one day where she has eaten something and kept it down. Occasionally has a reflex vomiting sensation whenever it hits the back of her throat but most of the time it is 20-60 minutes after eating. No dysphagia or odynophagia. Associated lips, finger and toes numb/tingling. Improves with having a hot bath - she feels it is never hot enough. No marijuana use except for a couple of days ago to see if it would help - it did not. No personal or family history of migraines. Wellbutrin started last summer for depression - she current feels her depression is well controlled. Not able to take this for the last couple of days. Topamax initially started for weight loss but when she tried to come off she would get headaches therefore kept this going - stopped about a week ago to see if it would help the nausea. Takes ibuprofen for pain but not in the last couple of days and not regularly. Adderall stopped about a week ago due to nausea. Principal Diagnosis nausea/vomiting - see hospital course Discharge Exam In general she is awake and alert pleasant no distress. HEENT normocephalic atraumatic mucous membranes moist. Breathing unlabored no accessory muscle use good effort. Skin shows no rashes no pallor or icterus Discharge Data Allergies Allergy/AdvReac Type Severity Reaction Status Date / Time sertraline Allergy Mild Unknown Verified 01/21/23 14:05 Consultations 01/21/23 12:58 Consult Gastroenterology Routine 01/21/23 16:52 ED Decision to Admit Stat Ordered Studies 01/21/23 10:57 CT Abd and Pelvis [CT abd pelvis IV con only] Stat CT head/brain wo con Stat Hospital Course (1) Nausea and vomiting: Jj Rivera is a 32 year-old female who presented to the ED for due to a sync opal event following colonoscopy and upper endoscopy earlier in the day. She has a past medical history of iron deficiency, anemia, ADHD, depression. Acute GI bleeding -Suspect lower GI bleed -CT Abdomen/Pelvis: no acute process within the abdomen or pelvis, no pneumoperitoneum -Patient was discussed with Dr De who performed EGD and colonoscopy and no need for IV pantoprazole as suspected to be lower GI -Tagged RBC scan without acute bleed -Meckel's scan (01/24) negative - plan for capsule endoscopy as an outpatient -Hemoglobin 5.7 in ED, has received 3 units PRBCs total since admission -Hgb has been stable since Symptomatic anemia -Longstanding history, underlying etiology unknown -Patient reports iron deficiency and was planning on starting iron transfusions. RBC transfusion as above. -Ordered Venofer 200mg daily for several days while in the hospital Nausea and vomiting, Abdominal Pain -Very little PO intake for weeks, has lost 30 pounds in the past month - etiology is not entirely clearCT abdomen pelvis, EGD, colonoscopy with no yield - given intractable nausea and essentially negative "organic" work-upsuspected something in the functional familyshe had several trigger points that were quite tender as our leading suspicion, but functional dyspepsia or gastroparesis also on the differential -Trigger points injected on 01/23/23. - seems to have gotten some benefit from trigger point injections, but had an understandable degree of anxiety around meals given that every time she would try to eat she would have nausea and vomiting -Due to suspected anxiety component (secondary to intractable nausea/vomiting for over 1 month), will trial anxiolytic prior to meals - did well with 0.25 mg of Ativan before every mealat discharge home, will utilize 5 mg of BuSpar before every meal - patient fully aware that her diagnosis is a "working diagnosis" and definitely require ongoing follow-up, ongoing evaluation, everything is essentially a therapeutic/diagnostic trial at this point, and we need to make sure that she not only gets better but stays betterdiscussed the critical importance of maintaining adequate hydration (set a benchmark of a minimum of 60 ounces of fluid a day)and noted if she is not making that, she probably will need to be readmitted for IV fluids. Discussed nutrition as well, more in the context of trying to take in more each day, and strategically starting with things like a brat diet before advancing to harder to digest foods bradycardia - heart rates were somewhat low once we hydrated Yessica suspect it is just her baseline rates as a young healthy female, she did have 1 episode of bradycardia to the 40s around the time of vomitingprobably vagal but not entirely clear. The main reason this is a "open issue" is in the mix of her work-up, at some point in the last months she saw sonar subsystem equipment operator who had suggested a pacemaker, is not entirely clear what the situation was, and obviously we have not seen anything overtly requiring a pacemaker here, but would want her PCP to be able to get those records and determine what the situation was home, close outpt f/u Total Time Total Time Spent Total Time Spent (In Minutes): <30 Discharge Plan Discharge Items Patient Disposition: Home - Self-Care Reason For Visit: ACUTE BLOOD LOSS ANEMIA, ACUTE GI BLEED Discharge Diagnosis: Acute GI Bleed Activity: Per Instructions section Non-emergency contact: Primary Care Provider and Maintenance And Operations Supervisor Call non-emergency contact if: your symptoms worsen Follow-up/Referrals: Emerald Zuniga DO [Primary Care Provider] - Diet: Regular Addtl Attending Provider Instructions: You were admitted to the hospital for GI bleed and anemia. You were treated with blood transfusions and IV fluids. You also had a tagged RBC scan (nuclear medicine test) which did not show an active bleed at time of completion. Your hemoglobin stabilized after receiving 3 total units of blood. A discharge summary will be sent to your primary care physician to ensure continuity of care. Follow-up appointments Make a follow-up appointment with your PCP within the next week. It is very important that you follow up with them shortly after discharge from the hospital. You should also follow up with GI for further studies/interventions within the next week. [facility] should call you within the next few days for further Keep all your follow-up appointments as already scheduled. If you cannot make an appointment, notify your provider. Medications Your medication list has been reviewed and reconciled upon discharge to ensure accuracy and continuity of care. An updated list of all your medications is included with your hospital discharge paperwork. Please review this list c losely, and make note of any changes. We sent a new medication called [med name] to your pharmacy. Take [med name] ([dose]mg) [number of tablets] [frequency] [for _ days]. COPY AND PASTE THIS LINE FOR EACH NEW DC MED CALL 911 OR GO TO THE EMERGENCY DEPARTMENT if you experience any of the following: Sudden, severe abdominal pain or nausea/vomiting Severe chest pain, or chest pain that radiates (moves) to your jaw or arm Sudden, severe shortness of breath or difficulty breathing Thank you for allowing us to participate in your care. Pending Studies at Discharge: No Stand-Alone Forms: [facility], Smoking Cessation Medications and DC Order Prescriptions: New buspirone 5 mg tablet 5 mg PO AC Qty: 60 0RF Rx Instructions: Take 1 tablet by mouth 30 minutes prior to each meal diclofenac sodium [Voltaren Arthritis Pain] 1 % Gel 2 g EXT QID Qty: 100 2RF Rx Instructions: Apply 2 grams of gel to left upper abdomen four times daily ondansetron 4 mg tablet,disintegrating 4 mg PO Q6H PRN (Reason: nausea and vomiting) Qty: 30 0RF simethicone 40 mg/0.6 mL Drops,Suspension 80 mg PO Q6H PRNQty: 0 0RF Continued topiramate 25 mg tablet 25 mg PO BID dextroamphetamine-amphetamine 30 mg tablet 30 mg PO BID Discontinued bupropion HCl 300 mg tablet extended release 24 hr 300 mg PO DAILY Discharge Orders: Discharge Order (Routine); Ordered 01/26/23 Ordered By: Nimisha Anders Admission Data Admit Date/Time: 01/21/23 13:08 Attending Provider: Carlos Steward Admit Provider: Rohith Whitten Primary Care Provider: Emerald Zuniga Other Providers: Rosalia De Jr ; Rohith Whitten Coding Level of Care Code 89443 IN/OBS DISCH 30 MIN/LESS Diagnoses Nausea and vomiting R11.2
== END 2023-01-26 18:48 | disposition home or self-care (01) | DRG 378 ==
LOC: ED 10:45 → SUATTDRO 13:08 → 2E 13:08